=== PATIENT | female | born 1955 | race Caucasian/White ===

== ENCOUNTER 2017-02-23 15:31 | Inpatient (IN) | payer MEDICARE ==
[~2017-02-23] VITALS: Ht 175.3 cm; Wt 99.3 kg
[~2017-02-23 15:31] MED LIST: ASPI-482 PO; DIPH25CA58 PO; GABA600T2 PO; LORA10CA PO; METF500T4 PO; NORG1TAB13 PO; PHEN15CA PO; SIMV20TA3 PO
[2017-02-23] MEDS ORDERED: fentaNYL PF VIAL 100 MCG/2 ML VIAL IV PRN (16:00)
--- NOTE | 2017-02-23 16:06 | EKG ---
[facility] [address] [place] [address] Test Date: 2017-02-23 Test Time: 16:03:49 Pat Name: HANY ESTRADA Department: Room: Gender: Female [employer]: : 1955 Requested By: ABDULAZIZ DELGADO Order Number: [id number] Reading MD: Bambi Medley Measurements Intervals Doyle Rate: 78 P: 39 TX: 156 QRS: 51 QRSD: 86 T: 23 QT: 394 QTc: 453 Interpretive Statements SINUS RHYTHM NORMAL ECG RI6.01 No previous ECG available for comparison Electronically Signed On 02-26-2017 17:41:11 CDT by Bambi Medley
[2017-02-23 16:18] LABS: BASO # 0.1 x10^3/uL (0.0-0.2); BASO % 1 % (0-3); EOS % 4 % (0-3); HEMOGLOBIN 12.1 g/dL (12.0-15.5); LYMPH # 3.2 x10^3/uL (1.0-4.8); LYMPH % 32 % (24-48); MEAN CORPUSCULAR HEMOGLOBIN 29 pg (25-35); MEAN CORPUSCULAR HGB CONC 33 g/dL (31-37); MEAN CORPUSCULAR VOLUME 89 fL (79-100); MONO % 6 % (0-9); NEUT % 57 % (31-73); PLATELET COUNT 315 x10^3/uL (140-400); RED BLOOD COUNT 4.14 x10^6/uL (3.50-5.40); RED CELL DISTRIBUTION WIDTH 13.9 % (11.5-14.5)
[2017-02-23 16:28] LABS: PROTHROMBIN TIME PATIENT 12.3 SEC (11.7-14.0)
--- NOTE | 2017-02-23 16:28 | RAD ---
Indication CVA. Protocol study. A single view of the chest was obtained. No prior imaging of the chest is available. The heart and pulmonary vessels appear normal. The lungs are clear of acute infiltrates. Significant pleural fluid is not present. There is no pneumothorax. Postoperative changes are noted in the lower cervical spine. IMPRESSION: No acute or focal process seen in the chest
[2017-02-23 16:32] LABS: CALCIUM 9.4 mg/dL (8.5-10.1); CREATININE 0.8 mg/dL (0.6-1.0); GFR 72.9; POTASSIUM 4.1 mmol/L (3.5-5.1)
--- NOTE | 2017-02-23 16:37 | RAD ---
Indication difficulty with speech. Blurred vision. Noncontrast images of the head were obtained. No prior imaging of the head is available. The calvarium appears unremarkable. The visualized paranasal sinuses appear normal. There is no subdural or epidural hematoma. No mass or midline shift is seen. There is no hemorrhage. Acute finding is not apparent. IMPRESSION: No acute finding seen on noncontrast CT images of the head PQRS Compliance Statement: One or more of the following individualized dose reduction techniques were utilized for this examination: 1. Automated exposure control 2. Adjustment of the mA and/or kV according to patient size 3. Use of iterative reconstruction technique
[2017-02-23 16:38] LABS: ALBUMIN 3.3 g/dL (3.4-5.0); ALBUMIN/GLOBULIN RATIO 0.9 (1.0-1.7); TOTAL BILIRUBIN 0.2 mg/dL (0.2-1.0)
--- NOTE | 2017-02-23 17:35 | RAD ---
PROCEDURE MRI study of the cervical spine without contrast HISTORY Worsening extremity weakness for 1 week. History of cervical fusion in 2002. TECHNIQUE Noncontrast MRI sequences of the cervical spine were performed in the sagittal and axial planes. COMPARISON December 17, 2013. FINDINGS No marrow infiltrative process or discitis is seen. Anterior cervical fusion is seen at C5 and C6. There is paramagnetic susceptibility artifact from the anterior cervical spine screws. The C5-6 intervertebral disc space is fused. No discitis is seen. Laminectomy defect of C5 and C6 is seen. There is cervical cord signal abnormality at the C6 level which was seen previously. This has not changed significantly. This is consistent with chronic myelomalacia. No progressive cervical cord atrophy is seen. No new cervical cord signal abnormality is seen. No cerebellar tonsillar ectopia is seen. At C2-3, no focal disc protrusion or spinal canal stenosis or neural foraminal narrowing is seen. At C3-4, there is a mild central disc protrusion which indents the anterior aspect of the thecal sac and comes in contact with the anterior surface of the cervical cord. This has not changed significantly. There is moderate narrowing of the right neural foramen. This is unchanged. At C4-5, mild retrolisthesis is seen. There is mild degenerative endplate spurring and diffuse disc bulging present. No significant spinal canal stenosis is evident. There is moderate narrowing of the right neural foramen and mild narrowing of the left neural foramen. The neural foramen narrowing on the right side has increased. At C5-6, the disc space is fused. No spinal canal stenosis is seen. There is moderate narrowing of the neural foramina bilaterally. This has not changed. At C6-7, grade 1 anterolisthesis is seen. There is no significant disc protrusion at this level. There is mild degenerative endplate spurring. No progressive spinal canal stenosis is seen. There is moderate narrowing of the left neural foramen and mild narrowing of the right neural foramen. This is unchanged. At C7-T1, no focal disc protrusion or spinal canal stenosis or neural foraminal narrowing is seen. IMPRESSION Degenerative cervical spondylosis and disc bulging and neural foraminal narrowing as discussed above. See discussion above for each level. There has been progressive moderate narrowing of the right neural foramen at C4-5 since the previous study. No other new finding is seen from December 17, 2013. Stable cervical cord signal abnormality is seen at C6 consistent with chronic myelomalacia. No progressive atrophy is evident. No new cervical cord abnormality is evident. Electronically signed by: Margarito Horan MD (February 23, 2017 17:34:40)
--- NOTE | 2017-02-23 18:03 | PHYS DOC ---
Past Medical History Past Medical History: Diabetes-Type II, High Cholesterol, Other Additional Past Medical Histor: spinal stenosis, dermatitis, neuropathy Past Surgical History: Cervical Fusion, , Hysterectomy, Lumbar Laminectomy, Oophorectomy, Tonsillectomy Additional Past Surgical Histo: mesh bladder sling, upper dentures, C5/C6 fusion, dental sx, laproscopy Alcohol Use: Occasionally Drug Use: None Adult General Chief Complaint Chief Complaint: MULTIPLE COMPLAINTS HPI HPI Patient is a 61 year old female who presents with extremity numbness or weakness. Patient reports over the past week she has had progressive numbness and weakness in all extremities. Also reports blurred vision, confusion, difficulty with word finding over approximately same time period. Denies headache, slurred speech. States she had an x-ray performed by her primary care physician recently that showed "spinal cord compression." She had been scheduled for outpatient MRI but was referred here today because her symptoms had significantly worsened. Denies recent trauma. She denies bowel or bladder incontinence or retention, saddle anesthesia. History of previous C5-C6 laminectomy and decompression, L2-L5 radiofrequency ablation. She takes baclofen and gabapentin as well as hydrocodone. PCP is Dr. Cardona. Review of Systems Review of Systems Constitutional: Denies fever or chills Eyes: Denies change in visual acuity HENT: Denies nasal congestion or sore throat Respiratory: Denies cough or shortness of breath Cardiovascular: Denies chest pain or edema GI: Denies abdominal pain, nausea, vomiting, or diarrhea : Denies dysuria or hematuria Musculoskeletal: Reports neck pain and back pain Integument: Denies rash or skin lesions Neurologic: Denies headache, reports extremity numbness and weakness, difficulty with word finding Current Medications Current Medications Current Medications Medications (Trade) Dose Ordered Sig/[place] Start Time Stop Time Status Last Admin Dose Admin Acetaminophen (Tylenol) 650 mg PRN Q4HRS PRN 02/23/17 19:15 02/24/17 19:14 Fentanyl Citrate (Fentanyl 2ml Vial) 50 mcg PRN Q15MIN PRN 02/23/17 16:00 02/24/17 15:59 02/23/17 16:31 50 MCG Morphine Sulfate 4 mg PRN Q2HR PRN 02/23/17 19:15 02/24/17 19:14 Ondansetron HCl (Zofran) 4 mg PRN Q8HRS PRN 02/23/17 19:15 02/24/17 19:14 Allergies Allergies Allergies Coded Allergies Type Severity Reaction Last Updated Verified No Known Drug Allergies 12/17/13 No Physical Exam Physical Exam Constitutional: Obese, no acute distress, non-toxic appearance. HENT: Normocephalic, atraumatic, bilateral external ears normal, oropharynx moist, nose normal. Eyes: PERRLA, EOMI, conjunctiva normal, no discharge. Neck: supple, no stridor. Generalized C-spine tenderness with palpation Cardiovascular: RRR, no murmurs, no edema. Lungs & Thorax: LCTAB, no wheezing, no respiratory distress. Abdomen: soft, nontender, nondistended. Skin: Warm, dry, no erythema, no rash. Back: Generalized tenderness with palpation of her entire thoracic and lumbar spine without step-offs. Extremities: No tenderness, no edema. 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, symmetric but weak resisted plantarflexion and dorsiflexion 4 out of 5 bilaterally, symmetric decreased sensation to light touch to upper and lower extremities Psychologic: anxious Current Patient Data Vital Signs Vital Signs Date Time Temp Pulse Resp B/P (MAP) Pulse Ox O2 Delivery O2 Flow Rate FiO2 02/23/17 16:31 21 98 Room Air 02/23/17 15:50 97.6 84 159/72 (101) 97.6 Lab Values Laboratory Tests Test 02/23/17 16:10 02/23/17 19:25 White Blood Count 10.0 x10^3/uL (4.0-11.0) Red Blood Count 4.14 x10^6/uL (3.50-5.40) Hemoglobin 12.1 g/dL (12.0-15.5) Hematocrit 37.0 % (36.0-47.0) Mean Corpuscular Volume 89 fL (79-100) Mean Corpuscular Hemoglobin 29 pg (25-35) Mean Corpuscular Hemoglobin Concent 33 g/dL (31-37) Red Cell Distribution Width 13.9 % (11.5-14.5) Platelet Count 315 x10^3/uL (140-400) Neutrophils (%) (Auto) 57 % (31-73) Lymphocytes (%) (Auto) 32 % (24-48) Monocytes (%) (Auto) 6 % (0-9) Eosinophils (%) (Auto) 4 % (0-3) H Basophils (%) (Auto) 1 % (0-3) Neutrophils # (Auto) 5.7 x10^3uL (1.8-7.7) Lymphocytes # (Auto) 3.2 x10^3/uL (1.0-4.8) Monocytes # (Auto) 0.6 x10^3/uL (0.0-1.1) Eosinophils # (Auto) 0.4 x10^3/uL (0.0-0.7) Basophils # (Auto) 0.1 x10^3/uL (0.0-0.2) Prothrombin Time 12.3 SEC (11.7-14.0) Prothrombin Time INR 1.0 (0.8-1.1) PTT 27 SEC (24-38) Sodium Level 139 mmol/L (136-145) Potassium Level 4.1 mmol/L (3.5-5.1) Chloride Level 101 mmol/L (98-107) Carbon Dioxide Level 31 mmol/L (21-32) Anion Gap 7 (6-14) Blood Urea Nitrogen 19 mg/dL (7-20) Creatinine 0.8 mg/dL (0.6-1.0) Estimated GFR (Cockcroft-Gault) 72.9 BUN/Creatinine Ratio 24 (6-20) H Glucose Level 122 mg/dL (70-99) H Calcium Level 9.4 mg/dL (8.5-10.1) Total Bilirubin 0.2 mg/dL (0.2-1.0) Aspartate Amino Transferase (AST) 18 U/L (15-37) Alanine Aminotransferase (ALT) 21 U/L (14-59) Alkaline Phosphatase 48 U/L (46-116) Troponin I Quantitative < 0.017 ng/mL (0.000-0.055) Total Protein 7.0 g/dL (6.4-8.2) Albumin 3.3 g/dL (3.4-5.0) L Albumin/Globulin Ratio 0.9 (1.0-1.7) L Thyroid Stimulating Hormone (TSH) 3.413 uIU/mL (0.358-3.74) Urine Collection Type Unknown Urine Color Yellow Urine Clarity Cloudy Urine pH 7.0 Urine Specific [place] 1.015 Urine Protein Negative mg/dL (NEG-TRACE) Urine Glucose (UA) Negative mg/dL (NEG) Urine Ketones (Stick) Trace mg/dL (NEG) Urine Blood Negative (NEG) Urine Nitrite Negative (NEG) Urine Bilirubin Negative (NEG) Urine Urobilinogen Dipstick 1.0 mg/dL (0.2 mg/dL) Urine Leukocyte Esterase Small (NEG) Urine RBC 0 /HPF (0-2) Urine WBC 1-4 /HPF (0-4) Urine Squamous Epithelial Cells Few /LPF Urine Amorphous Sediment Present /HPF Urine Bacteria Few /HPF (0-FEW) Laboratory Tests 02/23/17 16:10 Laboratory Tests 02/23/17 16:10 EKG EKG interpreted by me: NSR rate 78, no acute ST/T wave changes, normal intervals, no ectopy.[] Radiology/Procedures Radiology/Procedures PROCEDURE: CT HEAD WO CONTRAST Indication difficulty with speech. Blurred vision. Noncontrast images of the head were obtained. No prior imaging of the head is available. The calvarium appears unremarkable. The visualized paranasal sinuses appear normal. There is no subdural or epidural hematoma. No mass or midline shift is seen. There is no hemorrhage. Acute finding is not apparent. IMPRESSION: No acute finding seen on noncontrast CT images of the head PQRS Compliance Statement: One or more of the following individualized dose reduction techniques were utilized for this examination: 1. Automated exposure control 2. Adjustment of the mA and/or kV according to patient size 3. Use of iterative reconstruction technique DICTATED and SIGNED BY: APRIL HANCOCK MD DATE: 02/23/17 1632 PROCEDURE: CHEST AP ONLY Indication CVA. Protocol study. A single view of the chest was obtained. No prior imaging of the chest is available. The heart and pulmonary vessels appear normal. The lungs are clear of acute infiltrates. Significant pleural fluid is not present. There is no pneumothorax. Postoperative changes are noted in the lower cervical spine. IMPRESSION: No acute or focal process seen in the chest DICTATED and SIGNED BY: APRIL HANCOCK MD DATE: 02/23/17 1624 PROCEDURE: CERVICAL SPINE WO CONTRAST PROCEDURE MRI study of the cervical spine without contrast HISTORY Worsening extremity weakness for 1 week. History of cervical fusion in 2002. TECHNIQUE Noncontrast MRI sequences of the cervical spine were performed in the sagittal and axial planes. COMPARISON December 17, 2013. FINDINGS No marrow infiltrative process or discitis is seen. Anterior cervical fusion is seen at C5 and C6. There is paramagnetic susceptibility artifact from the anterior cervical spine screws. The C5-6 intervertebral disc space is fused. No discitis is seen. Laminectomy defect of C5 and C6 is seen. There is cervical cord signal abnormality at the C6 level which was seen previously. This has not changed significantly. This is consistent with chronic myelomalacia. No progressive cervical cord atrophy is seen. No new cervical cord signal abnormality is seen. No cerebellar tonsillar ectopia is seen. At C2-3, no focal disc protrusion or spinal canal stenosis or neural foraminal narrowing is seen. At C3-4, there is a mild central disc protrusion which indents the anterior aspect of the thecal sac and comes in contact with the anterior surface of the cervical cord. This has not changed significantly. There is moderate narrowing of the right neural foramen. This is unchanged. At C4-5, mild retrolisthesis is seen. There is mild degenerative endplate spurring and diffuse disc bulging present. No significant spinal canal stenosis is evident. There is moderate narrowing of the right neural foramen and mild narrowing of the left neural foramen. The neural foramen narrowing on the right side has increased. At C5-6, the disc space is fused. No spinal canal stenosis is seen. There is moderate narrowing of the neural foramina bilaterally. This has not changed. At C6-7, grade 1 anterolisthesis is seen. There is no significant disc protrusion at this level. There is mild degenerative endplate spurring. No progressive spinal canal stenosis is seen. There is moderate narrowing of the left neural foramen and mild narrowing of the right neural foramen. This is unchanged. At C7-T1, no focal disc protrusion or spinal canal stenosis or neural foraminal narrowing is seen. IMPRESSION Degenerative cervical spondylosis and disc bulging and neural foraminal narrowing as discussed above. See discussion above for each level. There has been progressive moderate narrowing of the right neural foramen at C4-5 since the previous study. No other new finding is seen from December 17, 2013. Stable cervical cord signal abnormality is seen at C6 consistent with chronic myelomalacia. No progressive atrophy is evident. No new cervical cord abnormality is evident. Electronically signed by: Elpidio Horan MD (February 23, 2017 17:34:40) DICTATED and SIGNED BY: ELPIDIO HORAN MD DATE: 02/23/17 1734[] Course & Med Decision Making Course & Med Decision Making Pertinent Labs and Imaging studies reviewed. (See chart for details) The patient presents with neurologic symptoms. Discussed with Dr. Walker who recommends obtaining stat MRI in the emergency department. This showed abnormalities as above, no acute cord compression. I did discuss results with Destiny DAMON and she was going to review with Dr. Lucas, have not yet received a response at time of admission but she anticipated patient would not require any emergent intervention. CT head no acute abnormalities. She had ongoing pain. recommend admission for further evaluation & treatment. The patient agrees with plan of care. Discussed with Jaylan who agrees to admit to inpatient status, consult to Dr. Lucas & Dr. Oro of neurology. The patient is admitted in stable condition. [] Dragon Disclaimer Dragon Disclaimer This electronic medical record was generated, in whole or in part, using a voice recognition dictation system. Departure Departure Impression: Primary Impression: Generalized weakness Additional Impressions: Neural foraminal stenosis of cervical spine Paresthesias Disposition: ADMITTED INPATIENT Admitting Physician: Negro Tian Condition: STABLE Referrals: JOSE EDUARDO ESTES MD (PCP) Problem Qualifiers ABDULAZIZ DELGADO MD February 23, 2017 18:03
[2017-02-23] MEDS ORDERED: ACETAMINOPHEN 325 MG TABLET. PO PRN (19:15)
[2017-02-23] MEDS ORDERED: ONDANSETRON PF 4 MG/2 ML VIAL. IV PRN (19:15)
[2017-02-23 19:33] LABS: BILIRUBIN,URINE NEGATIVE (NEG); GLUCOSE,URINE NEGATIVE (NEG); NITRITE,URINE NEGATIVE (NEG); PROTEIN,URINE NEGATIVE (NEG-TRACE)
[2017-02-23 19:41] LABS: BACTERIA,URINE FEW /HPF (0-FEW); RBC,URINE 0 /HPF (0-2); SQUAMOUS EPITHELIAL CELL,UR FEW /LPF
--- NOTE | 2017-02-23 21:05 | ACF ---
Admission Forms Criteria NEUROLOGY [facility]G Clinical Indications for Admission to Inpatient Care (Place ' X' for any and all applicable criteria): Hospital admission is needed for appropriate care of the patient because of 1 or more of the following: [ ]I. Encephalitis [ ]II. Severe [employer] infections indicated by 1 or more of the following(1)(2)(3) : [ ]a) Intracranial abscess [ ]b) Spinal abscess or myelitis [ ]c) Tuberculous or other nonbacterial, nonviral [employer] infection(8) [ ]III. Vasculitis and 1 or more of the following(14)(15): []a) Altered mental status that is severe or persistent or other acute neurologic change []b) Psychosis []c) Seizure [ ]IV. Status epilepticus or repetitive seizures not controlled with emergent treatment [A] (7)(8) [ ]V. Altered mental status that is severe or persistent [ ]. Transient alteration in consciousness with high-risk etiology; examples include (12)(13): [ ]a) Cardiovascular source [ ]b) Cataplexy [ ]VII. Cerebral aneurysm requiring ANY ONE of the following(14): [ ]a) IV antihypertensives or vasoactive agents [ ]b) Sedation and analgesia for suspected leak [ ]c) Need for external ventricular drainage and cerebral perfusion pressure monitoring [ ]d) Emergent evaluation to determine need for surgical clipping or endovascular coiling by interventional radiology. If surgery is required ( Also use Craniotomy, Supratentorial, for Surgery of Bleeding Intracranial Aneurysm (for bleeding aneurysm) or Craniotomy, Supratentorial (for nonbleeding aneurysm) as appropriate. [X]VIII. New-onset severe neurologic symptom requiring inpatient care indicated by ANY ONE of the following: [ ]a) Aphasia(15) [ ]b) Weakness (grade 3 or less) [ ]c) Paralysis (eg, hemiplegia) [ ]d) Spasticity(16) [ ]e) Dystonia [ ]e) Ataxia(17) [ ]f) Amnesia(18) [ ]g) Involuntary movements(19) [ ]h) Vertigo [ ] Visual loss [X]i) Other severe neurologic finding (eg, papilledema, mass effect on imaging, myoclonus not treatable at alternative level of care (eg, observation care) [ ]IX. Guillain-Clio syndrome(20) [ ]X. Myasthenia gravis crisis or inpatient monitoring need as indicated by 1 or more of the following(21): [ ]a) Intensive treatment (eg, course of plasmapheresis) with inadequate outpatient situation to monitor patients status [ ]b) Inadequate airway protection [ ]c) Respiratory insufficiency requiring intubation or inpatient. monitoring [ ]d) Progressive dysphagia with failure to thrive [ ]XI. Multiple sclerosis or other acute demyelinating disease requiring inpatient care as indicated by 1 or more of the following (22)(23): [ ]a) Acute severe deterioration requiring inpatient treatment (eg, IV steroids, plasmapheresis, close observation) [ ]b) Acute complication requiring inpatient care (eg, sepsis, severe decubitus, aspiration) [ ]XII.Parkinson disease requiring inpatient care (Also use Optimal Recovery Care Criteria or General Recovery Criteria as appropriate) indicated by 1 or more of the following(25): [ ]a) Infection (eg, aspiration pneumonia) not treatable at alternative level of care [ ]b Dehydration that is severe or persistent [ ]c) Life-threatening agitation or psychotic behavior not treatable on emergency, observation care, or alternative level (eg, residential) basis [ ]d) Severe medication withdrawal effects (eg, freezing, neuroleptic malignant syndrome) not responsive to emergency and observation care treatment ( as appropriate) [ ]e) Other severe manifestation not treatable at alternative level of care [ ]XII. Amyotrophic lateral sclerosis with inpatient care needs as indicated by ANY ONE of the following(26): [ ]a) Acute complications (eg, aspiration pneumonia, sepsis ) requiring inpatient care ( see other optimal Recovery Guideline as appropriate) [ ]b) Dehydration that is severe persistent AND artificial support desired [ ]c) Inadequate airway protection AND artificial support desired [ ]d) Severe ventilatory insufficiency AND artificial support desired [ ]XIII. Myasthenia gravis crisis or inpatient monitoring need as indicated by 1 or more of the following(21): [] a) Inadequate airway protection []b) Respiratory insufficiency requiring intubation or inpatient monitoring []c) Progressive dysphagia with failure to thrive []d) Intensive treatment (e.g., course of plasmapheresis) with inadequate outpatient situation to monitor patients status [ ]XIV. Multiple sclerosis or other acute demyelinating disease requiring inpatient care indicated by 1 or more of the following[C](36)(43)(44)(45)(46): []a) Acute severe deterioration requiring inpatient treatment (eg, IV steroids, plasmapheresis, close observation) []b) Acute complication requiring inpatient care (eg, sepsis, severe decubitus, aspiration) [ ]XV. Intracranial hypertension (e.g., pseudotumor cerebri) requiring inpatient care (e.g., acute visual loss, inadequate oral intake) (47)(48)(49) [ ]XVI. Parkinson disease requiring inpatient care (Also use Optimal Recovery Care Criteria or General Recovery Criteria as appropriate) indicated by 1 or more of the following(25): [] a) Infection (e.g., aspiration pneumonia) not treatable at alternative level of care []b) Volume depletion not responsive to emergency and observation care treatment (as appropriate) []c) Life-threatening agitation or psychotic behavior not treatable on emergency, observation care, or alternative level (e.g., residential) basis []d) Severe medication withdrawal effects (e.g., freezing, neuroleptic malignant syndrome) not responsive to emergency and observation care treatment (as appropriate) []e) Other severe manifestation not treatable at alternative level of care [ ]XVII. Amyotrophic lateral sclerosis with inpatient care needs as indicated by1 or more of the following(42): []a) Acute complications (eg, aspiration pneumonia, sepsis) requiring inpatient care (see other Optimal Recovery Guideline or General Recovery Guideline as appropriate) []b) Dehydration that is severe or persistent AND artificial support desired []c) Inadequate airway protection AND artificial support desired []d) Severe ventilatory insufficiency AND artificial support desired [ ]XVIII. Severe myopathy, neuropathy, or other neuromuscular disease indicated by 1 or more of the following(42)(52)(53)(54): []a ) New-onset severe diffuse weakness (eg, strength 3/5 or less) []b) Severe dysphagia []c) Dyspnea at rest or with minimal exertion (new) []d) Inadequate airway protection []e) Inadequate ventilation indicated by 1 or more of the following : i) Partial pressure of carbon dioxide greater than 44 mm Hg ( 5.9 kPa) (new) ii) Reduced peak expiratory flow rate (new) iii) Vital capacity less than 50% of predicted (less than 15 mL/kg) iv) Peak inspiratory force less negative than -30 cm H2O (- 2942 Pa) [ ]XVII.Complications of congenital or degenerative disease (eg, infection, seizures, dehydration, injury) not responsive to emergency and observation care treatment (as appropriate ) [C](16)(29)(30) [ ]XVIII.Suspected or confirmed nerve or muscle toxic injury, including ANY ONE of the following: [ ]a) Rhabdomyolysis(31) i) Acute renal failure ii) Dehydration that is severe or persistent iii) Altered mental status that is severe or persistent iv) Electrolyte abnormality that remains after emergency or observation level care ( as appropriate) [ ]b) Botulism(32) [ ]c) Other severe toxin-induced sign or symptom [ ]XIX. Neurologic trauma requiring inpatient treatment (medical) indicated by ANY ONE of the following(33)(34): [ ]a) Vital signs or neurologic signs more frequently than every 4 hours [ ]b) Hyperosmolar therapy [ ]c) Respiratory monitoring [ ]d) Intracranial pressure monitoring and treatment [ ]e) Stabilization and immobilization device placement (eg, braces, body jacket) [ ]f) Intubation & mechanical ventilation for airway protection or therapeutic hyperventilation [ ]g) Other treatment or monitoring needed that requires inpatient level of care [ ]XX.Complications of neurologic devices (eg, ventricular shunt, neurostimulator) requiring 1 or more of the following(35)(36): [ ]a) IV antibiotics with monitoring while awaiting culture results [ ]b) Monitoring for hydrocephalus [ ]XXI. Neurology condition symptom, or finding for which emergency and observation care have failed or are not considered appropriate. See General Criteria: Observation Care ISC, General Admission Criteria GRG, or Pediatric General Admission Criteria GRG guideline as appropriate. The original [facility] [employer] content created by [facility] has been revised. The portions of the content which have been revised are identified through the use of italic text or in bold, and [facility] has neither reviewed nor approved the modified material. All other unmodified content is copyright [facility] Please see references footnoted in the original [facility] edition 2016 Admission Criteria Met?: Yes ZAC BARTLETT February 23, 2017 21:05
[2017-02-23 21:15] VITALS: BP 140/72
[2017-02-23] MEDS: MORPHINE SULFATE 4 MG/ML DISP.SYRIN. IV PRN (21:42)
[2017-02-23 23:16] VITALS: BP 125/72
[2017-02-24] MEDS ORDERED: METF-620 PO (03:00)
[2017-02-24] MEDS ORDERED: SIMV40TA3 PO (03:00)
[2017-02-24] MEDS ORDERED: GABA800T2 PO (03:00)
[2017-02-24] MEDS ORDERED: DIPH25CA58 PO (03:00)
[2017-02-24] MEDS: MORPHINE SULFATE 4 MG/ML DISP.SYRIN. IV PRN ×3 (03:04→10:51)
[2017-02-24 03:37] VITALS: BP 141/79
[2017-02-24 04:11] LABS: BASO # 0.1 x10^3/uL (0.0-0.2); BASO % 1 % (0-3); EOS % 3 % (0-3); HEMATOCRIT 36.2 % (36.0-47.0); LYMPH # 3.9 x10^3/uL (1.0-4.8); LYMPH % 40 % (24-48); MEAN CORPUSCULAR HEMOGLOBIN 29 pg (25-35); MEAN CORPUSCULAR HGB CONC 33 g/dL (31-37); MEAN CORPUSCULAR VOLUME 88 fL (79-100); MONO % 6 % (0-9); NEUT % 50 % (31-73); PLATELET COUNT 308 x10^3/uL (140-400); RED BLOOD COUNT 4.09 x10^6/uL (3.50-5.40); WHITE BLOOD COUNT 9.8 x10^3/uL (4.0-11.0)
[2017-02-24 04:16] LABS: CALCIUM 8.6 mg/dL (8.5-10.1); CREATININE 0.7 mg/dL (0.6-1.0); GFR 85.1; POTASSIUM 3.9 mmol/L (3.5-5.1)
[2017-02-24] MEDS ORDERED: ESCI20TA PO (05:52)
[2017-02-24] MEDS ORDERED: OXYB5TAB7 PO (05:52)
[2017-02-24] MEDS ORDERED: ESTR30CR VG (05:52)
[2017-02-24] MEDS ORDERED: DOCU-27 PO (05:52)
[2017-02-24] MEDS ORDERED: KETO120S TP (05:52)
[2017-02-24] MEDS ORDERED: HYDR-2762 PO (05:52)
[2017-02-24] MEDS ORDERED: CALC625T PO (05:52)
[2017-02-24] MEDS ORDERED: BACL10TA PO (05:52)
[2017-02-24] MEDS ORDERED: OMEG500C PO (05:52)
[2017-02-24] MEDS ORDERED: KETO15CR TP (05:52)
[2017-02-24] MEDS ORDERED: ERGO500012 PO (05:52)
[2017-02-24 07:00] VITALS: BP 97/66
[2017-02-24] MEDS ORDERED: ERGOCALCIFEROL (VITAMIN D2) 50,000 UNIT CAPSULE. PO SCH (09:00)
[2017-02-24] MEDS ORDERED: methylPREDNISolone 4 MG TABLET. PO SCH (09:00)
[2017-02-24] MEDS ORDERED: DEXTROSE 50% 25 GM / 50ML DISP.SYRIN. IV PRN (09:15)
[2017-02-24] MEDS ORDERED: ONDANSETRON PF 4 MG/2 ML VIAL. IV PRN (09:15)
[2017-02-24] MEDS ORDERED: ACETAMINOPHEN 325 MG TABLET. PO PRN (09:15)
[2017-02-24] MEDS: KETOCONAZOLE 2% TOPICAL CREAM 15GM TUBE. TP SCH (09:15)
--- NOTE | 2017-02-24 09:23 | PDOC ---
OBJECTIVE Vital Signs Vital Signs Date Time Temp Pulse Resp B/P (MAP) Pulse Ox O2 Delivery O2 Flow Rate FiO2 02/24/17 08:47 Room Air 02/24/17 08:17 Room Air 02/24/17 08:00 Room Air 02/24/17 07:00 97.9 77 16 97/66 (76) 94 Room Air 97.9 02/24/17 03:37 98.1 65 18 141/79 (99) 95 Room Air 98.1 02/24/17 03:34 16 02/24/17 03:04 16 Room Air 02/23/17 23:16 98.2 79 18 125/72 (89) 94 Room Air 98.2 02/23/17 22:00 Room Air 02/23/17 21:42 16 Room Air 02/23/17 21:15 98.9 83 18 140/72 (94) 94 Room Air 98.9 02/23/17 20:00 89 19 123/74 (90) 95 Room Air 02/23/17 19:30 82 20 122/82 (95) 94 02/23/17 19:00 80 19 124/68 (86) 94 02/23/17 18:30 82 18 123/58 (79) 93 02/23/17 18:00 80 20 122/60 (80) 93 02/23/17 17:30 78 19 119/58 (78) 94 02/23/17 17:00 79 19 126/60 (82) 95 02/23/17 16:31 21 98 Room Air 02/23/17 16:00 83 20 136/63 (87) 95 Room Air 02/23/17 15:50 97.6 84 21 159/72 (101) 97 Room Air 97.6 I & O Intake and Output 02/24/17 07:00 Intake Total 300 ml Balance 300 ml Intake Oral 300 ml # Voids 2 COMMENT Lab Laboratory Tests Test 02/23/17 16:10 02/23/17 19:25 02/23/17 21:55 02/24/17 03:36 White Blood Count 10.0 x10^3/uL (4.0-11.0) 9.8 x10^3/uL (4.0-11.0) Red Blood Count 4.14 x10^6/uL (3.50-5.40) 4.09 x10^6/uL (3.50-5.40) Hemoglobin 12.1 g/dL (12.0-15.5) 12.0 g/dL (12.0-15.5) Hematocrit 37.0 % (36.0-47.0) 36.2 % (36.0-47.0) Mean Corpuscular Volume 89 fL (79-100) 88 fL (79-100) Mean Corpuscular Hemoglobin 29 pg (25-35) 29 pg (25-35) Mean Corpuscular Hemoglobin Concent 33 g/dL (31-37) 33 g/dL (31-37) Red Cell Distribution Width 13.9 % (11.5-14.5) 14.0 % (11.5-14.5) Platelet Count 315 x10^3/uL (140-400) 308 x10^3/uL (140-400) Neutrophils (%) (Auto) 57 % (31-73) 50 % (31-73) Lymphocytes (%) (Auto) 32 % (24-48) 40 % (24-48) Monocytes (%) (Auto) 6 % (0-9) 6 % (0-9) Eosinophils (%) (Auto) 4 % (0-3) 3 % (0-3) Basophils (%) (Auto) 1 % (0-3) 1 % (0-3) Neutrophils # (Auto) 5.7 x10^3uL (1.8-7.7) 4.9 x10^3uL (1.8-7.7) Lymphocytes # (Auto) 3.2 x10^3/uL (1.0-4.8) 3.9 x10^3/uL (1.0-4.8) Monocytes # (Auto) 0.6 x10^3/uL (0.0-1.1) 0.6 x10^3/uL (0.0-1.1) Eosinophils # (Auto) 0.4 x10^3/uL (0.0-0.7) 0.3 x10^3/uL (0.0-0.7) Basophils # (Auto) 0.1 x10^3/uL (0.0-0.2) 0.1 x10^3/uL (0.0-0.2) Prothrombin Time 12.3 SEC (11.7-14.0) Prothromb Time International Ratio 1.0 (0.8-1.1) Activated Partial Thromboplast Time 27 SEC (24-38) Sodium Level 139 mmol/L (136-145) 139 mmol/L (136-145) Potassium Level 4.1 mmol/L (3.5-5.1) 3.9 mmol/L (3.5-5.1) Chloride Level 101 mmol/L (98-107) 101 mmol/L (98-107) Carbon Dioxide Level 31 mmol/L (21-32) 30 mmol/L (21-32) Anion Gap 7 (6-14) 8 (6-14) Blood Urea Nitrogen 19 mg/dL (7-20) 16 mg/dL (7-20) Creatinine 0.8 mg/dL (0.6-1.0) 0.7 mg/dL (0.6-1.0) Estimated GFR (Cockcroft-Gault) 72.9 85.1 BUN/Creatinine Ratio 24 (6-20) Glucose Level 122 mg/dL (70-99) 126 mg/dL (70-99) Calcium Level 9.4 mg/dL (8.5-10.1) 8.6 mg/dL (8.5-10.1) Total Bilirubin 0.2 mg/dL (0.2-1.0) Aspartate Amino Transf (AST/SGOT) 18 U/L (15-37) Alanine Aminotransferase (ALT/SGPT) 21 U/L (14-59) Alkaline Phosphatase 48 U/L (46-116) Troponin I Quantitative < 0.017 ng/mL (0.000-0.055) Total Protein 7.0 g/dL (6.4-8.2) Albumin 3.3 g/dL (3.4-5.0) Albumin/Globulin Ratio 0.9 (1.0-1.7) Thyroid Stimulating Hormone (TSH) 3.413 uIU/mL (0.358-3.74) Urine Collection Type Unknown Urine Color Yellow Urine Clarity Cloudy Urine pH 7.0 Urine Specific [place] 1.015 Urine Protein Negative mg/dL (NEG-TRACE) Urine Glucose (UA) Negative mg/dL (NEG) Urine Ketones (Stick) Trace mg/dL (NEG) Urine Blood Negative (NEG) Urine Nitrite Negative (NEG) Urine Bilirubin Negative (NEG) Urine Urobilinogen Dipstick 1.0 mg/dL (0.2 mg/dL) Urine Leukocyte Esterase Small (NEG) Urine RBC 0 /HPF (0-2) Urine WBC 1-4 /HPF (0-4) Urine Squamous Epithelial Cells Few /LPF Urine Amorphous Sediment Present /HPF Urine Bacteria Few /HPF (0-FEW) Glucose (Fingerstick) 107 mg/dL (70-99) Test 02/24/17 07:26 Glucose (Fingerstick) 119 mg/dL (70-99) MAURO MCCULLOUGH MD February 24, 2017 09:23
[2017-02-24] MEDS: CALCIUM POLYCARBOPHIL 625 MG TABLET PO SCH (09:39)
[2017-02-24] MEDS: GABAPENTIN 400 MG CAPSULE. PO SCH ×2 (09:39→21:25)
[2017-02-24] MEDS: ASPIRIN ENTERIC COATED 81 MG TABLET.DR. PO SCH (09:39)
[2017-02-24] MEDS: OMEGA-3 FATTY ACIDS/FISH OIL 1,000 MG CAPSULE. PO SCH ×2 (09:39→21:26)
[2017-02-24] MEDS: BACLOFEN 10 MG TABLET. PO SCH ×3 (09:40→21:25)
[2017-02-24] MEDS: HYDROcodone/APAP 7.5/325MG 1 TAB TABLET PO PRN (10:51)
[2017-02-24 11:10] VITALS: BP 118/76
[2017-02-24] MEDS: INSULIN ASPART 300 UNITS/3 ML INSULN.PEN SQ SCH ×2 (11:44→17:00)
--- NOTE | 2017-02-24 11:57 | PDOC1 ---
History and Physical Date of Admission Date of Admission 02/23/17 Identification/Chief Complaint Chief Complaint bl ext weakness Problems: Source Source: Chart review, Patient History of Present Illness History of Present Illness HPI Patient is a 61 year old female who presents with BL extremity numbness or weakness. pt got cervical sx in 2002, since then she has been ok, till a few month ago, she started to feel bl hands, bl legs some weakness, with numbness, neck pain ( left worse), hard to hold objects well with finger weakness. worse for a few weeks. She denies headache, slurry speech, has chronic constipation and stress incontinence, chronic mild lower back pain. States she had an x-ray performed by her primary care physician recently that showed "spinal cord compression." She had been scheduled for outpatient MRI but was referred here because her symptoms had significantly worsened. Denies recent trauma. She denies bowel or bladder incontinence or retention, saddle anesthesia. She takes baclofen and gabapentin as well as hydrocodone. PCP is Dr. Cardona. Head ct Neg. cervical MRI showed spinal stenosis, wo cord compression. Past Medical History Past Medical History Diabetes-Type II, High Cholesterol, Other Additional Past Medical Histor: spinal stenosis, dermatitis, neuropathy Past Surgical History Past Surgical History Cervical Fusion, , Hysterectomy, Lumbar Laminectomy, Oophorectomy, Tonsillectomy Additional Past Surgical Histo: mesh bladder sling, upper dentures, C5/C6 fusion, dental sx, laproscopy Family History Family History: No Significant Social History Smoke: No ALCOHOL: none Drugs: None Current Problem List Problem List Problems Medical Problems: (1) Generalized weakness Status: Acute (2) Neural foraminal stenosis of cervical spine Status: Acute (3) Paresthesias Status: Acute (4) Weakness Status: Acute Current Medications Current Medications Current Medications Medications (Trade) Dose Ordered Sig/[place] Start Time Stop Time Status Last Admin Dose Admin Acetaminophen (Tylenol) 650 mg PRN Q6HRS PRN 02/24/17 09:15 Acetaminophen/ Hydrocodone Bitart (Lortab 7.5/325) 1 tab PRN Q6HRS PRN 02/24/17 09:15 02/24/17 10:51 1 TAB Aspirin (Ecotrin) 81 mg DAILY 02/24/17 09:00 02/24/17 09:39 81 MG Baclofen (Lioresal) 10 mg TID 02/24/17 09:00 02/24/17 09:40 10 MG Calcium Polycarbophil (Fibercon) 625 mg DAILY 02/24/17 09:00 02/24/17 09:39 625 MG Dextrose (Dextrose 50%-Water Syringe) 12.5 gm PRN Q15MIN PRN 02/24/17 09:15 Diphenhydramine HCl (Benadryl) 50 mg HS 02/24/17 21:00 Docusate Sodium (Colace) 100 mg HS 02/24/17 21:00 Ergocalciferol (Vitamin D2) 50,000 unit Fr 02/24/17 09:00 02/24/17 09:39 50,000 UNIT Escitalopram Oxalate (Lexapro) 20 mg QHS 02/25/17 09:00 Estrogens Conjugated (Premarin) 0.3 young MoWeFr 02/24/17 21:00 Fentanyl Citrate (Fentanyl 2ml Vial) 50 mcg PRN Q15MIN PRN 02/23/17 16:00 02/24/17 15:59 02/23/17 16:31 50 MCG Fish Oil (Fish Oil) 1,000 mg BID 02/24/17 09:30 02/24/17 09:39 1,000 MG Gabapentin (Neurontin) 1,200 mg BID 02/24/17 09:15 02/24/17 09:39 1,200 MG Insulin Aspart (Novolog) 0-9 UNITS TIDWMEALS 02/24/17 12:00 Ketoconazole (Nizoral 2% Topical) 15 young BID 02/24/17 09:15 Metformin HCl (Glucophage) 1,000 mg BIDWMEALS 02/24/17 09:00 02/24/17 09:39 1,000 MG Morphine Sulfate 4 mg PRN Q2HR PRN 02/23/17 19:15 02/24/17 19:14 02/24/17 10:51 4 MG Ondansetron HCl (Zofran) 4 mg PRN Q6HRS PRN 02/24/17 09:15 Oxybutynin Chloride (Ditropan) 5 mg HS 02/24/17 21:00 Simvastatin (Zocor) 40 mg HS 02/24/17 21:00 Allergies Allergies Allergies Coded Allergies Type Severity Reaction Last Updated Verified No Known Drug Allergies 2/25/14 No ROS Review of System CONSTITUTIONAL: No fever or chills EYES: No recent changes SKIN: No rash or itching CARDIOVASCULAR: No chest pain, syncope, palpitations, or edema RESPIRATORY: No SOB or cough GASTROINTESTINAL: No nausea, vomiting or abdominal pain NEUROLOGICAL: No headaches or weakness ENDOCRINE: No cold or heat intolerance GENITOURINARY: No urgency or frequency of urination MUSCULOSKELETAL: No back pain or joint pain LYMPHATICS: No enlarged lymph nodes PSYCHIATRIC: No anxiety or depression Physical Exam Physical Exam GEN.: No apparent distress. Alert and oriented. HEENT: Head is normocephalic, atraumatic NECK: Supple. LUNGS: Clear to auscultation. HEART: RRR, S1, S2 present. Peripheral pulses intact ABDOMEN: Soft, nontender. Positive bowel sounds. EXTREMITIES: Without any cyanosis. bl ext weakness, strength bl hands 3/ 5. NEUROLOGIC: Normal speech, normal tone PSYCHIATRIC: Normal affect, normal mood. SKIN: No ulcerations Vitals Vitals Vital Signs Date Time Temp Pulse Resp B/P (MAP) Pulse Ox O2 Delivery O2 Flow Rate FiO2 02/24/17 11:21 Room Air 02/24/17 11:10 97.9 78 16 118/76 (90) 94 97.9 Labs Labs Laboratory Tests Test 02/23/17 16:10 02/23/17 19:25 02/23/17 21:55 02/24/17 03:36 White Blood Count 10.0 x10^3/uL (4.0-11.0) 9.8 x10^3/uL (4.0-11.0) Red Blood Count 4.14 x10^6/uL (3.50-5.40) 4.09 x10^6/uL (3.50-5.40) Hemoglobin 12.1 g/dL (12.0-15.5) 12.0 g/dL (12.0-15.5) Hematocrit 37.0 % (36.0-47.0) 36.2 % (36.0-47.0) Mean Corpuscular Volume 89 fL (79-100) 88 fL (79-100) Mean Corpuscular Hemoglobin 29 pg (25-35) 29 pg (25-35) Mean Corpuscular Hemoglobin Concent 33 g/dL (31-37) 33 g/dL (31-37) Red Cell Distribution Width 13.9 % (11.5-14.5) 14.0 % (11.5-14.5) Platelet Count 315 x10^3/uL (140-400) 308 x10^3/uL (140-400) Neutrophils (%) (Auto) 57 % (31-73) 50 % (31-73) Lymphocytes (%) (Auto) 32 % (24-48) 40 % (24-48) Monocytes (%) (Auto) 6 % (0-9) 6 % (0-9) Eosinophils (%) (Auto) 4 % (0-3) 3 % (0-3) Basophils (%) (Auto) 1 % (0-3) 1 % (0-3) Neutrophils # (Auto) 5.7 x10^3uL (1.8-7.7) 4.9 x10^3uL (1.8-7.7) Lymphocytes # (Auto) 3.2 x10^3/uL (1.0-4.8) 3.9 x10^3/uL (1.0-4.8) Monocytes # (Auto) 0.6 x10^3/uL (0.0-1.1) 0.6 x10^3/uL (0.0-1.1) Eosinophils # (Auto) 0.4 x10^3/uL (0.0-0.7) 0.3 x10^3/uL (0.0-0.7) Basophils # (Auto) 0.1 x10^3/uL (0.0-0.2) 0.1 x10^3/uL (0.0-0.2) Prothrombin Time 12.3 SEC (11.7-14.0) Prothromb Time International Ratio 1.0 (0.8-1.1) Activated Partial Thromboplast Time 27 SEC (24-38) Sodium Level 139 mmol/L (136-145) 139 mmol/L (136-145) Potassium Level 4.1 mmol/L (3.5-5.1) 3.9 mmol/L (3.5-5.1) Chloride Level 101 mmol/L (98-107) 101 mmol/L (98-107) Carbon Dioxide Level 31 mmol/L (21-32) 30 mmol/L (21-32) Anion Gap 7 (6-14) 8 (6-14) Blood Urea Nitrogen 19 mg/dL (7-20) 16 mg/dL (7-20) Creatinine 0.8 mg/dL (0.6-1.0) 0.7 mg/dL (0.6-1.0) Estimated GFR (Cockcroft-Gault) 72.9 85.1 BUN/Creatinine Ratio 24 (6-20) Glucose Level 122 mg/dL (70-99) 126 mg/dL (70-99) Calcium Level 9.4 mg/dL (8.5-10.1) 8.6 mg/dL (8.5-10.1) Total Bilirubin 0.2 mg/dL (0.2-1.0) Aspartate Amino Transf (AST/SGOT) 18 U/L (15-37) Alanine Aminotransferase (ALT/SGPT) 21 U/L (14-59) Alkaline Phosphatase 48 U/L (46-116) Troponin I Quantitative < 0.017 ng/mL (0.000-0.055) Total Protein 7.0 g/dL (6.4-8.2) Albumin 3.3 g/dL (3.4-5.0) Albumin/Globulin Ratio 0.9 (1.0-1.7) Thyroid Stimulating Hormone (TSH) 3.413 uIU/mL (0.358-3.74) Urine Collection Type Unknown Urine Color Yellow Urine Clarity Cloudy Urine pH 7.0 Urine Specific [place] 1.015 Urine Protein Negative mg/dL (NEG-TRACE) Urine Glucose (UA) Negative mg/dL (NEG) Urine Ketones (Stick) Trace mg/dL (NEG) Urine Blood Negative (NEG) Urine Nitrite Negative (NEG) Urine Bilirubin Negative (NEG) Urine Urobilinogen Dipstick 1.0 mg/dL (0.2 mg/dL) Urine Leukocyte Esterase Small (NEG) Urine RBC 0 /HPF (0-2) Urine WBC 1-4 /HPF (0-4) Urine Squamous Epithelial Cells Few /LPF Urine Amorphous Sediment Present /HPF Urine Bacteria Few /HPF (0-FEW) Glucose (Fingerstick) 107 mg/dL (70-99) Test 02/24/17 07:26 02/24/17 11:25 Glucose (Fingerstick) 119 mg/dL (70-99) 136 mg/dL (70-99) Laboratory Tests Test 02/23/17 16:10 02/23/17 19:25 02/23/17 21:55 02/24/17 03:36 White Blood Count 10.0 x10^3/uL (4.0-11.0) 9.8 x10^3/uL (4.0-11.0) Red Blood Count 4.14 x10^6/uL (3.50-5.40) 4.09 x10^6/uL (3.50-5.40) Hemoglobin 12.1 g/dL (12.0-15.5) 12.0 g/dL (12.0-15.5) Hematocrit 37.0 % (36.0-47.0) 36.2 % (36.0-47.0) Mean Corpuscular Volume 89 fL (79-100) 88 fL (79-100) Mean Corpuscular Hemoglobin 29 pg (25-35) 29 pg (25-35) Mean Corpuscular Hemoglobin Concent 33 g/dL (31-37) 33 g/dL (31-37) Red Cell Distribution Width 13.9 % (11.5-14.5) 14.0 % (11.5-14.5) Platelet Count 315 x10^3/uL (140-400) 308 x10^3/uL (140-400) Neutrophils (%) (Auto) 57 % (31-73) 50 % (31-73) Lymphocytes (%) (Auto) 32 % (24-48) 40 % (24-48) Monocytes (%) (Auto) 6 % (0-9) 6 % (0-9) Eosinophils (%) (Auto) 4 % (0-3) 3 % (0-3) Basophils (%) (Auto) 1 % (0-3) 1 % (0-3) Neutrophils # (Auto) 5.7 x10^3uL (1.8-7.7) 4.9 x10^3uL (1.8-7.7) Lymphocytes # (Auto) 3.2 x10^3/uL (1.0-4.8) 3.9 x10^3/uL (1.0-4.8) Monocytes # (Auto) 0.6 x10^3/uL (0.0-1.1) 0.6 x10^3/uL (0.0-1.1) Eosinophils # (Auto) 0.4 x10^3/uL (0.0-0.7) 0.3 x10^3/uL (0.0-0.7) Basophils # (Auto) 0.1 x10^3/uL (0.0-0.2) 0.1 x10^3/uL (0.0-0.2) Prothrombin Time 12.3 SEC (11.7-14.0) Prothromb Time International Ratio 1.0 (0.8-1.1) Activated Partial Thromboplast Time 27 SEC (24-38) Sodium Level 139 mmol/L (136-145) 139 mmol/L (136-145) Potassium Level 4.1 mmol/L (3.5-5.1) 3.9 mmol/L (3.5-5.1) Chloride Level 101 mmol/L (98-107) 101 mmol/L (98-107) Carbon Dioxide Level 31 mmol/L (21-32) 30 mmol/L (21-32) Anion Gap 7 (6-14) 8 (6-14) Blood Urea Nitrogen 19 mg/dL (7-20) 16 mg/dL (7-20) Creatinine 0.8 mg/dL (0.6-1.0) 0.7 mg/dL (0.6-1.0) Estimated GFR (Cockcroft-Gault) 72.9 85.1 BUN/Creatinine Ratio 24 (6-20) Glucose Level 122 mg/dL (70-99) 126 mg/dL (70-99) Calcium Level 9.4 mg/dL (8.5-10.1) 8.6 mg/dL (8.5-10.1) Total Bilirubin 0.2 mg/dL (0.2-1.0) Aspartate Amino Transf (AST/SGOT) 18 U/L (15-37) Alanine Aminotransferase (ALT/SGPT) 21 U/L (14-59) Alkaline Phosphatase 48 U/L (46-116) Troponin I Quantitative < 0.017 ng/mL (0.000-0.055) Total Protein 7.0 g/dL (6.4-8.2) Albumin 3.3 g/dL (3.4-5.0) Albumin/Globulin Ratio 0.9 (1.0-1.7) Thyroid Stimulating Hormone (TSH) 3.413 uIU/mL (0.358-3.74) Urine Collection Type Unknown Urine Color Yellow Urine Clarity Cloudy Urine pH 7.0 Urine Specific [place] 1.015 Urine Protein Negative mg/dL (NEG-TRACE) Urine Glucose (UA) Negative mg/dL (NEG) Urine Ketones (Stick) Trace mg/dL (NEG) Urine Blood Negative (NEG) Urine Nitrite Negative (NEG) Urine Bilirubin Negative (NEG) Urine Urobilinogen Dipstick 1.0 mg/dL (0.2 mg/dL) Urine Leukocyte Esterase Small (NEG) Urine RBC 0 /HPF (0-2) Urine WBC 1-4 /HPF (0-4) Urine Squamous Epithelial Cells Few /LPF Urine Amorphous Sediment Present /HPF Urine Bacteria Few /HPF (0-FEW) Glucose (Fingerstick) 107 mg/dL (70-99) Test 02/24/17 07:26 02/24/17 11:25 Glucose (Fingerstick) 119 mg/dL (70-99) 136 mg/dL (70-99) VTE Prophylaxis Ordered VTE Prophylaxis Devices: Yes VTE Pharmacological Prophylaxi: Yes Assessment/Plan Assessment/Plan 1. gl ext weakness, could be 2/2 spinal stenosis 2. h/o cervical fusion sx 3. hld 4. DM2 5. neuropathy plan: fu with neuro, neurosx MRI brain as per neuro cont home meds SSI dvt ppx KELLY RIVERA MD February 24, 2017 11:57
--- NOTE | 2017-02-24 12:01 | PDOC2 ---
NEUROLOGY CONSULT Date of Admission Date of Admission DATE: 02/24/17 TIME: 11:53 Reason for Consult Reason for Consult: Altered mental status Referring Physician Referring Physician: Dr. Tian PCP: Dr. Sullivan Source Source: Caregiver, Chart review, Patient History of Present Illness History of Present Illness The patient is a 61-year-old right-handed female with history of cervical myelopathy status-post cervical decompression 14 years ago, who in the past few days has noticed recurrence of the same symptoms as she had done. She describes tingling in the arms and legs, weakness, as well as difficulty finding words and thinking. She feels as if her brain is in a fog. There is no history of stroke, seizure, or head injury. Past Medical History Cardiovascular: Hyperlipidemia Musculoskeletal: Other (cervical spinal stenosis) Endocrine: Diabetes Dermatology: Other (seborrhea) Past Surgical History Past Surgical History: Tonsillectomy, Hysterectomy, Other (oral, cervical decompression, fusion C5-6, removal of colonic polyps, laparoscopy for adhesions ) Family History Family History: Cancer Social History Social History , is with her in the room, no tobacco, rare alcohol Current Medications Current Medications Current Medications Fentanyl Citrate (Fentanyl 2ml Vial) 50 mcg PRN Q15MIN PRN IV PAIN GREATER THAN 3/10 Last administered on 02/23/17 16:31; Start 02/23/17 at 16:00; Stop 02/24 at 15:59 Ondansetron HCl (Zofran) 4 mg PRN Q8HRS PRN IV NAUSEA/VOMITING; Start 02/23/17 at 19:15; Stop 02/24/17 at 19:14 Morphine Sulfate 4 mg PRN Q2HR PRN IV PAIN Last administered on 02/24/17 10:51 ; Start 02/23/17 at 19:15; Stop 02/24/17 at 19:14 Acetaminophen (Tylenol) 650 mg PRN Q4HRS PRN PO FEVER; Start 02/23/17 at 19:15; Stop 02/24/17 at 19:14 Aspirin (Ecotrin) 81 mg DAILY PO Last administered on 02/24/17 09:39; Start 02/24/17 at 09:00 Baclofen (Lioresal) 10 mg TID PO Last administered on 02/24/17 09:40; Start 02/24/17 at 09:00 Calcium Polycarbophil (Fibercon) 625 mg DAILY PO Last administered on 02/24/17 09:39; Start 02/24/17 at 09:00 Diphenhydramine HCl (Benadryl) 50 mg HS PO ; Start 02/24/17 at 21:00 Docusate Sodium (Colace) 100 mg HS PO ; Start 02/24/17 at 21:00 Ergocalciferol (Vitamin D2) 50,000 unit Fr PO Last administered on 02/24/17 09: 39; Start 02/24/17 at 09:00 Estrogens Conjugated (Premarin) 0.3 jaleesa MoWeFr VG ; Start 02/24/17 at 21:00 Acetaminophen/ Hydrocodone Bitart (Lortab 7.5/325) 1 tab PRN Q6HRS PRN PO PAIN Last administered on 02/24/17 10:51; Start 02/24/17 at 09:15 Ketoconazole (Nizoral 2% Topical) 15 jaleesa BID TP ; Start 02/24/17 at 09:15 Metformin HCl (Glucophage) 1,000 mg BIDWMEALS PO Last administered on 02/24/17 09:39; Start 02/24/17 at 09:00 Oxybutynin Chloride (Ditropan) 5 mg HS PO ; Start 02/24/17 at 21:00 Simvastatin (Zocor) 40 mg HS PO ; Start 02/24/17 at 21:00 Escitalopram Oxalate (Lexapro) 20 mg QHS PO ; Start 02/25/17 at 09:00 Gabapentin (Neurontin) 1,200 mg BID PO Last administered on 02/24/17 09:39; Start 02/24/17 at 09:15 Fish Oil (Fish Oil) 1,000 mg BID PO Last administered on 02/24/17 09:39; Start 02/24/17 at 09:30 Acetaminophen (Tylenol) 650 mg PRN Q6HRS PRN PO FEVER; Start 02/24/17 at 09:15 Ondansetron HCl (Zofran) 4 mg PRN Q6HRS PRN IV NAUSEA/VOMITING; Start 02/24/17 at 09:15 Insulin Aspart (Novolog) 0-9 UNITS TIDWMEALS SQ ; Start 02/24/17 at 12:00 Dextrose (Dextrose 50%-Water Syringe) 12.5 gm PRN Q15MIN PRN IV SEE COMMENTS; Start 02/24/17 at 09:15 Active Scripts Active Reported Vitamin D2 (Ergocalciferol (Vitamin D2)) 50,000 Unit Capsule 50,000 Unit PO WEEKLY Fibercon (Calcium Polycarbophil) 625 Mg Tablet 625 Mg PO DAILY Colace (Docusate Sodium) 100 Mg Capsule 100 Mg PO HS Fish Oil (Onsted-3 Fatty Acids) 500 Mg Capsule.dr 1,200 Mg PO BID Ketoconazole 120 Ml Shampoo 120 Ml TP 3X/WEEK Ketoconazole 15 Gm Cream..g. 15 Gm TP BID Oxybutynin Chloride 5 Mg Tablet 5 Mg PO HS Hydrocodone-Apap 7.5-325 (Hydrocodone Bit/Acetaminophen) 1 Each Tablet 1 Tab PO PRN Q4-6HRS PRN Premarin (Estrogens, Conjugated) 30 Gm Cream.appl 0.3 Jaleesa VG 3X/WEEK Escitalopram Oxalate 20 Mg Tablet 20 Mg PO HS Baclofen 10 Mg Tablet 10 Mg PO TID Simvastatin 40 Mg Tablet 40 Mg PO HS Metformin Hcl 1,000 Mg Tablet 1,000 Mg PO BIDWMEALS Gabapentin 800 Mg Tablet 1,200 Mg PO BID Benadryl (Diphenhydramine Hcl) 25 Mg Capsule 50 Mg PO HS Aspir 81 (Aspirin) 81 Mg Tablet.dr 81 Mg PO Estarylla (Norgestimate-Ethinyl Estradiol) 1 Each Tablet 1 Each PO Claritin (Loratadine) 10 Mg Capsule 10 Mg PO Allergies Allergies: Coded Allergies: No Known Drug Allergies (Unverified , 12/17/13) ROS Review of System Patient denies fevers, chills, weight loss, dyspnea, angina, abdominal pain, change in bowels, or dysuria. 14 point review of systems is negative. Physical Exam Physical Examination PHYSICAL EXAMINATION: Vital signs: see above. General appearance is normal and in no acute distress. HEENT: Normocephalic and nontraumatic. Eyes, nose, ears, and throat are unremarkable. Neck is supple. No lymphadenopathy. No bruits are heard over the carotid artery. No crepitus. NEUROLOGICAL EXAMINATION: Mental Status Examination: Alert. Oriented to time, place, and person. Answers questions and follows commends. Pupils are equal round and reactive to light and accommodation. Funduscopic exam: No papilledema. Extraocular movements are intact. Visual field exam shows no defect on the direct confrontation. No motor or sensory deficits on the facial exam. Uvula in the midline and the soft palate elevated symmetrically. No deviation of the tongue to any direction. Gross hearing is normal. Shoulder shrug normal. Muscle tone is normal. Muscle strength is 4/5. Deep tendon reflexes are 2+, except 3+ bilateral knees. Plantar reflex is with flexion response bilaterally. Finger- to-nose test performance is accurate. Alternative movements are accurate. Gait not tested. Sensory exam shows sensory level below C5. No cerebellar signs are elicited. Vitals VITALS Vital Signs Date Time Temp Pulse Resp B/P (MAP) Pulse Ox O2 Delivery O2 Flow Rate FiO2 02/24/17 11:21 Room Air 02/24/17 11:10 97.9 78 16 118/76 (90) 94 97.9 Labs Labs Laboratory Tests Test 02/23/17 16:10 02/23/17 19:25 02/23/17 21:55 02/24/17 03:36 White Blood Count 10.0 x10^3/uL (4.0-11.0) 9.8 x10^3/uL (4.0-11.0) Red Blood Count 4.14 x10^6/uL (3.50-5.40) 4.09 x10^6/uL (3.50-5.40) Hemoglobin 12.1 g/dL (12.0-15.5) 12.0 g/dL (12.0-15.5) Hematocrit 37.0 % (36.0-47.0) 36.2 % (36.0-47.0) Mean Corpuscular Volume 89 fL (79-100) 88 fL (79-100) Mean Corpuscular Hemoglobin 29 pg (25-35) 29 pg (25-35) Mean Corpuscular Hemoglobin Concent 33 g/dL (31-37) 33 g/dL (31-37) Red Cell Distribution Width 13.9 % (11.5-14.5) 14.0 % (11.5-14.5) Platelet Count 315 x10^3/uL (140-400) 308 x10^3/uL (140-400) Neutrophils (%) (Auto) 57 % (31-73) 50 % (31-73) Lymphocytes (%) (Auto) 32 % (24-48) 40 % (24-48) Monocytes (%) (Auto) 6 % (0-9) 6 % (0-9) Eosinophils (%) (Auto) 4 % (0-3) 3 % (0-3) Basophils (%) (Auto) 1 % (0-3) 1 % (0-3) Neutrophils # (Auto) 5.7 x10^3uL (1.8-7.7) 4.9 x10^3uL (1.8-7.7) Lymphocytes # (Auto) 3.2 x10^3/uL (1.0-4.8) 3.9 x10^3/uL (1.0-4.8) Monocytes # (Auto) 0.6 x10^3/uL (0.0-1.1) 0.6 x10^3/uL (0.0-1.1) Eosinophils # (Auto) 0.4 x10^3/uL (0.0-0.7) 0.3 x10^3/uL (0.0-0.7) Basophils # (Auto) 0.1 x10^3/uL (0.0-0.2) 0.1 x10^3/uL (0.0-0.2) Prothrombin Time 12.3 SEC (11.7-14.0) Prothromb Time International Ratio 1.0 (0.8-1.1) Activated Partial Thromboplast Time 27 SEC (24-38) Sodium Level 139 mmol/L (136-145) 139 mmol/L (136-145) Potassium Level 4.1 mmol/L (3.5-5.1) 3.9 mmol/L (3.5-5.1) Chloride Level 101 mmol/L (98-107) 101 mmol/L (98-107) Carbon Dioxide Level 31 mmol/L (21-32) 30 mmol/L (21-32) Anion Gap 7 (6-14) 8 (6-14) Blood Urea Nitrogen 19 mg/dL (7-20) 16 mg/dL (7-20) Creatinine 0.8 mg/dL (0.6-1.0) 0.7 mg/dL (0.6-1.0) Estimated GFR (Cockcroft-Gault) 72.9 85.1 BUN/Creatinine Ratio 24 (6-20) Glucose Level 122 mg/dL (70-99) 126 mg/dL (70-99) Calcium Level 9.4 mg/dL (8.5-10.1) 8.6 mg/dL (8.5-10.1) Total Bilirubin 0.2 mg/dL (0.2-1.0) Aspartate Amino Transf (AST/SGOT) 18 U/L (15-37) Alanine Aminotransferase (ALT/SGPT) 21 U/L (14-59) Alkaline Phosphatase 48 U/L (46-116) Troponin I Quantitative < 0.017 ng/mL (0.000-0.055) Total Protein 7.0 g/dL (6.4-8.2) Albumin 3.3 g/dL (3.4-5.0) Albumin/Globulin Ratio 0.9 (1.0-1.7) Thyroid Stimulating Hormone (TSH) 3.413 uIU/mL (0.358-3.74) Urine Collection Type Unknown Urine Color Yellow Urine Clarity Cloudy Urine pH 7.0 Urine Specific Irving 1.015 Urine Protein Negative mg/dL (NEG-TRACE) Urine Glucose (UA) Negative mg/dL (NEG) Urine Ketones (Stick) Trace mg/dL (NEG) Urine Blood Negative (NEG) Urine Nitrite Negative (NEG) Urine Bilirubin Negative (NEG) Urine Urobilinogen Dipstick 1.0 mg/dL (0.2 mg/dL) Urine Leukocyte Esterase Small (NEG) Urine RBC 0 /HPF (0-2) Urine WBC 1-4 /HPF (0-4) Urine Squamous Epithelial Cells Few /LPF Urine Amorphous Sediment Present /HPF Urine Bacteria Few /HPF (0-FEW) Glucose (Fingerstick) 107 mg/dL (70-99) Test 02/24/17 07:26 02/24/17 11:25 Glucose (Fingerstick) 119 mg/dL (70-99) 136 mg/dL (70-99) Laboratory Tests Test 02/23/17 16:10 02/23/17 19:25 02/23/17 21:55 02/24/17 03:36 White Blood Count 10.0 x10^3/uL (4.0-11.0) 9.8 x10^3/uL (4.0-11.0) Red Blood Count 4.14 x10^6/uL (3.50-5.40) 4.09 x10^6/uL (3.50-5.40) Hemoglobin 12.1 g/dL (12.0-15.5) 12.0 g/dL (12.0-15.5) Hematocrit 37.0 % (36.0-47.0) 36.2 % (36.0-47.0) Mean Corpuscular Volume 89 fL (79-100) 88 fL (79-100) Mean Corpuscular Hemoglobin 29 pg (25-35) 29 pg (25-35) Mean Corpuscular Hemoglobin Concent 33 g/dL (31-37) 33 g/dL (31-37) Red Cell Distribution Width 13.9 % (11.5-14.5) 14.0 % (11.5-14.5) Platelet Count 315 x10^3/uL (140-400) 308 x10^3/uL (140-400) Neutrophils (%) (Auto) 57 % (31-73) 50 % (31-73) Lymphocytes (%) (Auto) 32 % (24-48) 40 % (24-48) Monocytes (%) (Auto) 6 % (0-9) 6 % (0-9) Eosinophils (%) (Auto) 4 % (0-3) 3 % (0-3) Basophils (%) (Auto) 1 % (0-3) 1 % (0-3) Neutrophils # (Auto) 5.7 x10^3uL (1.8-7.7) 4.9 x10^3uL (1.8-7.7) Lymphocytes # (Auto) 3.2 x10^3/uL (1.0-4.8) 3.9 x10^3/uL (1.0-4.8) Monocytes # (Auto) 0.6 x10^3/uL (0.0-1.1) 0.6 x10^3/uL (0.0-1.1) Eosinophils # (Auto) 0.4 x10^3/uL (0.0-0.7) 0.3 x10^3/uL (0.0-0.7) Basophils # (Auto) 0.1 x10^3/uL (0.0-0.2) 0.1 x10^3/uL (0.0-0.2) Prothrombin Time 12.3 SEC (11.7-14.0) Prothromb Time International Ratio 1.0 (0.8-1.1) Activated Partial Thromboplast Time 27 SEC (24-38) Sodium Level 139 mmol/L (136-145) 139 mmol/L (136-145) Potassium Level 4.1 mmol/L (3.5-5.1) 3.9 mmol/L (3.5-5.1) Chloride Level 101 mmol/L (98-107) 101 mmol/L (98-107) Carbon Dioxide Level 31 mmol/L (21-32) 30 mmol/L (21-32) Anion Gap 7 (6-14) 8 (6-14) Blood Urea Nitrogen 19 mg/dL (7-20) 16 mg/dL (7-20) Creatinine 0.8 mg/dL (0.6-1.0) 0.7 mg/dL (0.6-1.0) Estimated GFR (Cockcroft-Gault) 72.9 85.1 BUN/Creatinine Ratio 24 (6-20) Glucose Level 122 mg/dL (70-99) 126 mg/dL (70-99) Calcium Level 9.4 mg/dL (8.5-10.1) 8.6 mg/dL (8.5-10.1) Total Bilirubin 0.2 mg/dL (0.2-1.0) Aspartate Amino Transf (AST/SGOT) 18 U/L (15-37) Alanine Aminotransferase (ALT/SGPT) 21 U/L (14-59) Alkaline Phosphatase 48 U/L (46-116) Troponin I Quantitative < 0.017 ng/mL (0.000-0.055) Total Protein 7.0 g/dL (6.4-8.2) Albumin 3.3 g/dL (3.4-5.0) Albumin/Globulin Ratio 0.9 (1.0-1.7) Thyroid Stimulating Hormone (TSH) 3.413 uIU/mL (0.358-3.74) Urine Collection Type Unknown Urine Color Yellow Urine Clarity Cloudy Urine pH 7.0 Urine Specific Irving 1.015 Urine Protein Negative mg/dL (NEG-TRACE) Urine Glucose (UA) Negative mg/dL (NEG) Urine Ketones (Stick) Trace mg/dL (NEG) Urine Blood Negative (NEG) Urine Nitrite Negative (NEG) Urine Bilirubin Negative (NEG) Urine Urobilinogen Dipstick 1.0 mg/dL (0.2 mg/dL) Urine Leukocyte Esterase Small (NEG) Urine RBC 0 /HPF (0-2) Urine WBC 1-4 /HPF (0-4) Urine Squamous Epithelial Cells Few /LPF Urine Amorphous Sediment Present /HPF Urine Bacteria Few /HPF (0-FEW) Glucose (Fingerstick) 107 mg/dL (70-99) Test 02/24/17 07:26 02/24/17 11:25 Glucose (Fingerstick) 119 mg/dL (70-99) 136 mg/dL (70-99) TSH: 3.413, normal Images Images Head CT: Negative Cervical MRI: COMPARISON December 17, 2013. FINDINGS No marrow infiltrative process or discitis is seen. Anterior cervical fusion is seen at C5 and C6. There is paramagnetic susceptibility artifact from the anterior cervical spine screws. The C5-6 intervertebral disc space is fused. No discitis is seen. Laminectomy defect of C5 and C6 is seen. There is cervical cord signal abnormality at the C6 level which was seen previously. This has not changed significantly. This is consistent with chronic myelomalacia. No progressive cervical cord atrophy is seen. No new cervical cord signal abnormality is seen. No cerebellar tonsillar ectopia is seen. At C2-3, no focal disc protrusion or spinal canal stenosis or neural foraminal narrowing is seen. At C3-4, there is a mild central disc protrusion which indents the anterior aspect of the thecal sac and comes in contact with the anterior surface of the cervical cord. This has not changed significantly. There is moderate narrowing of the right neural foramen. This is unchanged. At C4-5, mild retrolisthesis is seen. There is mild degenerative endplate spurring and diffuse disc bulging present. No significant spinal canal stenosis is evident. There is moderate narrowing of the right neural foramen and mild narrowing of the left neural foramen. The neural foramen narrowing on the right side has increased. At C5-6, the disc space is fused. No spinal canal stenosis is seen. There is moderate narrowing of the neural foramina bilaterally. This has not changed. At C6-7, grade 1 anterolisthesis is seen. There is no significant disc protrusion at this level. There is mild degenerative endplate spurring. No progressive spinal canal stenosis is seen. There is moderate narrowing of the left neural foramen and mild narrowing of the right neural foramen. This is unchanged. At C7-T1, no focal disc protrusion or spinal canal stenosis or neural foraminal narrowing is seen. IMPRESSION Degenerative cervical spondylosis and disc bulging and neural foraminal narrowing as discussed above. See discussion above for each level. There has been progressive moderate narrowing of the right neural foramen at C4-5 since the previous study. No other new finding is seen from December 17, 2013. Stable cervical cord signal abnormality is seen at C6 consistent with chronic myelomalacia. No progressive atrophy is evident. No new cervical cord abnormality is evident. Assessment/Plan Assessment/Plan Impression: Cervical myelopathy, but MRI shows no change from 3 years ago. Therefore, there is nothing compressing the spinal cord. I doubt that there is an acute myelitis. There may be decompensation from the prior myelomalacia, need to rule out metabolic or nutritional factors as a cause. She is having some worrisome intracranial symptoms, but nothing is abnormal on her mental status or cranial-nerve examination. Recommendations: MRI of the brain Laboratory studies Rehabilitation modalities and physical medicine/rehabilitation consult I left a message with Destiny nurse practitioner in Dr. Lucas's office I do not think that neurosurgery can offer anything. I also discussed my findings with the patient and her . Thank you for letting me help with the patient's care. CHERI PARDO MD February 24, 2017 12:01
[2017-02-24] MEDS: methylPREDNISolone 4 MG TABLET. PO SCH ×2 (12:30→17:30)
--- NOTE | 2017-02-24 12:57 | RAD ---
PROCEDURE MRI brain without contrast. HISTORY Confusion and difficulty with speech. Unsteady gait. TECHNIQUE Sagittal T1, axial T1, axial T2, axial FLAIR, axial T2 gradient, coronal T2, and diffusion imaging with ADC map were performed. COMPARISON CT head February 23, 2017. FINDINGS The ventricles and sulci are within normal limits for age. A few scattered FLAIR hyperintensities in the supratentorial white matter are nonspecific but most suggestive of minimal small vessel ischemic disease. There is no acute intracranial hemorrhage or extra-axial fluid collection. There is no mass effect or midline shift. There is no restricted diffusion to suggest an acute infarct. Sagittal midline structures are unremarkable. Pituitary and suprasellar region are unremarkable. Intracranial flow voids are preserved. There is ethmoid and maxillary mucosal thickening. IMPRESSION No acute intracranial findings. Brain parenchymal volume loss and minimal probable small-vessel ischemic disease. Electronically signed by: Diogo Bender MD (February 24, 2017 12:56:33)
[2017-02-24] MEDS: ENOXAPARIN 40 MG/0.4 ML SYRINGE. SQ SCH (13:52)
[2017-02-24 14:57] VITALS: BP 127/79
[2017-02-24] MEDS ORDERED: fentaNYL 25MCG/HR PATCH 1 PATCH PATCH.TD72 TD SCH (17:00)
[2017-02-24] MEDS ORDERED: methylPREDNISolone ACETATE 40 MG/ML VIAL. IM ONE (17:45)
[2017-02-24] MEDS ORDERED: BUPIVACAINE MPF 0.25% 10 ML VIAL. IJ ONE (17:45)
--- NOTE | 2017-02-24 18:33 | PDOC4 ---
PROCEDURE Procedure At her request,I have injected painful trigger points over right cervical paraspinal muscles with marcaine and depomedrol solution under aseptic skin technique,and she tolerated the procedure satisfactorily without any side effects. SVEN DE LOS SANTOS MD February 24, 2017 18:33
[2017-02-24 19:08] VITALS: BP 124/65
[2017-02-24] MEDS ORDERED: PANTOPRAZOLE IV PUSH 40 MG VIAL. IVP ONE (20:00)
[2017-02-24] MEDS ORDERED: ESTROGENS, CONJ VAGINAL CREAM 30GM TUBE. VG SCH (21:00)
[2017-02-24] MEDS: OXYBUTYNIN CHLORIDE 5 MG TABLET PO SCH (21:25)
[2017-02-24] MEDS: diphenhydrAMINE HCL 25 MG CAPSULE PO SCH (21:25)
[2017-02-24] MEDS: DOCUSATE SODIUM 100 MG CAPSULE. PO SCH (21:25)
[2017-02-24] MEDS: SIMVASTATIN 40 MG TABLET. PO SCH (21:25)
[2017-02-24] MEDS: LIDOCAINE (700MG/PATCH) PATCH. TD SCH (21:27)
[2017-02-24 23:06] VITALS: BP_SYST 112; BP_SYST 135; BP_DIAS 70; BP_DIAS 85
[2017-02-25] MEDS: KETOCONAZOLE 2% TOPICAL CREAM 15GM TUBE. TP SCH ×3 (00:02→21:08)
[2017-02-25 03:02] VITALS: BP 103/74
--- NOTE | 2017-02-25 04:14 | CONS ---
DATE OF CONSULTATION: 02/24/2017 ATTENDING PHYSICIAN: Dr. Tian. The patient was seen at the request of Dr. Tian for rehab evaluation. HISTORY OF PRESENT ILLNESS: This is a 61-year-old female admitted through the Emergency Room on 02/23/2017 with increasing neck pain with associated headaches and numbness in her upper extremities going on for about a month and also some lower extremity pain, weakness and numbness. Recently, she denies any falls. The patient is status post cervical decompression laminectomy and fusion done by Dr. Tristan in 2002. She continued to have some numbness in her hands and occasional neck pain, but it was never consistent like this that is going on for the last one month. The patient has been using physical modalities, Icy Hot and some massage and had been taking hydrocodone for pain. The patient admits some constipation and not having good flow of urine and occasional stress incontinence. The patient with known diabetes mellitus type 2, hyperlipidemia, also history of dermatitis, neuropathy, status post , hysterectomy, also lumbar laminectomy, oophorectomy, tonsillectomy, mesh bladder sling. She is not known allergic to any medication. She lives with her family in [facility], had stairs for her to manage and she has been using a roller walker to get around. She is not working. The patient since admission had an MRI scan of her cervical vertebrae done, which revealed multilevel degenerative disk disease and degenerative joint disease, specifically mild central disk protrusion which indents the anterior aspect of the thecal sac and comes in contact of the anterior surface of the cervical cord, this has not changed significantly since the study done in 11/2013. Moderate narrowing of right neural foramen which is also unchanged at C4-C5, mild retrolisthesis seen, mild degenerative endplate spurring and diffuse disk bulging present. No significant central canal stenosis was noted. Moderate narrowing of right neural foramina and mild narrowing of left neural foramina. The neural foraminal narrowing on the right side has increased since last study. C5-C6 disk space is fused. There is moderate narrowing of neural foramina bilaterally, not changed since the previous study. At C6-C7 grade 1 anterolisthesis seen. No significant disk protrusion at this level, mild degenerative endplate spurring, no ____ spinal canal stenosis is seen. Moderate narrowing of left neural foramina and mild narrowing of right neural foramina unchanged from the previous study. The patient had MRI scan of the brain done, which revealed brain parenchymal loss and minimal probable small vessel ischemic disease. Chest x-ray was negative. CT of the head, no acute findings noted. The patient was seen by Physical Therapy today, they noted her complaining of lightheadedness and dizziness and increased pain with activity. She became tearful during evaluation, stating that she really did not want to do physical therapy and her spouse stated that it was ridiculous to offer only physical therapy as a treatment. His , who he stated up until 2 days ago was independent with walking and dressing. She started at 4/10 sitting at the edge of the bed with her pain and increased to 7/10 with activity. She rolled to the left with supervision, supine to sit supervision, transfers, contact guard assistance, sit to stand transfers using a roller walker with a contact guard assistance and she walks for about 20 feet using a roller walker with flexed posture, slow lillian, short step length, shuffling gait, decreased foot clearance, she walked into the bathroom, toilet and became tearful, leaning on sink, required chair right back to the room. PHYSICAL EXAMINATION: Today revealed a middle-aged female. She is alert, oriented to time, place, person and circumstance and follows commands appropriately. Cooperative during the examination, maybe slight giving up kind of weakness in dorsiflexor muscles of both feet. The patient had painful limited movements of her cervical and lumbar spine with tenderness to palpation over cervical paraspinal muscles extending over to posterior shoulder girdle muscles, over lumbar paraspinal muscles extending over to sacroiliac joint area and straight leg raising test is negative bilaterally. She had minimal degree of cervical and lumbar paraspinal muscle spasm. The patient had 4+/5 grade muscle strength overall with some kind of give up kind of weakness in her hand intrinsic muscles, shoulder abductors, elbow flexors and dorsiflexor muscles of both feet. Deep tendon reflexes are 1-2+ and symmetrical and she had equal perception of touch and pinprick sensation bilaterally. She is independent with rolling from side to side. I have not tested her transfers or ambulation skills at this time. ASSESSMENT: A middle-aged female with chronic neck and lower back pain, status post previous cervical and lumbar decompressive laminectomy with increased neck pain and upper extremity numbness and also upper extremity and lower extremity weakness for the last one month with radiological evidence of multilevel degenerative disk disease and degenerative joint disease of cervical vertebrae with some degree of neural foraminal compromise. RECOMMENDATIONS: To start her on Medrol Dosepak, to obtain her lumbar corset, to consider trigger point injection to help ease her neck and back pain. To ask Physical Therapy to try physical modality to help ease her neck and back pain. To consider transfer to Inpatient Rehabilitation Unit for better pain control and help her with mobility and self-care deficits when medically stable. Dr. Tian, I appreciate asking me to participate in the care of this interesting patient. I will be glad to follow her with you as needed for her rehabilitation. SVEN DE LOS SANTOS MD DR: TELLY/anaid JOB#: [id number] / [id number]
[2017-02-25 06:17] LABS: BASO # 0.1 x10^3/uL (0.0-0.2); BASO % 1 % (0-3); EOS % 2 % (0-3); HEMATOCRIT 35.8 % (36.0-47.0); HEMOGLOBIN 11.8 g/dL (12.0-15.5); LYMPH # 2.5 x10^3/uL (1.0-4.8); LYMPH % 28 % (24-48); MEAN CORPUSCULAR HEMOGLOBIN 29 pg (25-35); MEAN CORPUSCULAR HGB CONC 33 g/dL (31-37); MEAN CORPUSCULAR VOLUME 89 fL (79-100); MONO % 5 % (0-9); NEUT % 64 % (31-73); PLATELET COUNT 303 x10^3/uL (140-400); RED BLOOD COUNT 4.03 x10^6/uL (3.50-5.40)
[2017-02-25 06:46] LABS: CALCIUM 8.6 mg/dL (8.5-10.1); CREATININE 0.7 mg/dL (0.6-1.0); GFR 85.1; POTASSIUM 4.2 mmol/L (3.5-5.1)
[2017-02-25 07:00] VITALS: BP 116/69
[2017-02-25] MEDS: INSULIN ASPART 300 UNITS/3 ML INSULN.PEN SQ SCH ×3 (08:00→17:00)
[2017-02-25] MEDS ORDERED: methylPREDNISolone 4 MG TABLET. PO SCH ×2 (08:30→21:00)
[2017-02-25] MEDS: methylPREDNISolone 4 MG TABLET. PO SCH ×4 (09:00→21:06)
[2017-02-25] MEDS: GABAPENTIN 400 MG CAPSULE. PO SCH ×2 (09:00→21:06)
[2017-02-25] MEDS: ASPIRIN ENTERIC COATED 81 MG TABLET.DR. PO SCH (09:00)
[2017-02-25] MEDS: CALCIUM POLYCARBOPHIL 625 MG TABLET PO SCH (09:00)
[2017-02-25] MEDS: PANTOPRAZOLE 40 MG TABLET.DR. PO SCH (09:00)
[2017-02-25] MEDS: ESCITALOPRAM 10 MG TABLET. PO SCH ×2 (09:01→21:07)
[2017-02-25] MEDS: BACLOFEN 10 MG TABLET. PO SCH ×3 (09:01→21:07)
[2017-02-25] MEDS: OMEGA-3 FATTY ACIDS/FISH OIL 1,000 MG CAPSULE. PO SCH ×2 (09:01→21:07)
[2017-02-25] MEDS: LIDOCAINE (700MG/PATCH) PATCH. TD SCH (09:04)
--- NOTE | 2017-02-25 09:38 | PDOC ---
PROGRESS NOTES Subjective Subjective She admits some help with trigger point injection to her neck. Objective Objective Vital Signs Date Time Temp Pulse Resp B/P (MAP) Pulse Ox O2 Delivery O2 Flow Rate FiO2 02/25/17 07:00 97.5 69 20 116/69 (85) 97 Room Air 97.5 Intake and Output 02/25/17 06:59 Intake Total 1300 ml Balance 1300 ml Intake Oral 1300 ml # Voids 5 Physical Exam Physical Exam She is alert,trying to eat breakfast and she continues with painfully limited cervical and lumbar spine ROM with tenderness to palpation over cervical,lumbar paraspinal and posterior shoulder girdle muscles and over sacroiliac joints. Assessment Assessment Problems Medical Problems: (1) Generalized weakness Status: Acute (2) Neural foraminal stenosis of cervical spine Status: Acute (3) Paresthesias Status: Acute (4) Weakness Status: Acute Plan Plan of Care I have asked physical therapy to try physical modalities and she had not started on medrol dose pack as she felt nauseous and did not eat any food yesterday. To await mri scan of her lumbar spine and waiting for lumbar corset. Comment Review of Relevant I have reviewed the following items cailin (where applicable) has been applied. Labs Laboratory Tests Test 02/23/17 16:10 02/23/17 19:25 02/23/17 21:55 02/24/17 03:36 White Blood Count 10.0 x10^3/uL (4.0-11.0) 9.8 x10^3/uL (4.0-11.0) Red Blood Count 4.14 x10^6/uL (3.50-5.40) 4.09 x10^6/uL (3.50-5.40) Hemoglobin 12.1 g/dL (12.0-15.5) 12.0 g/dL (12.0-15.5) Hematocrit 37.0 % (36.0-47.0) 36.2 % (36.0-47.0) Mean Corpuscular Volume 89 fL (79-100) 88 fL (79-100) Mean Corpuscular Hemoglobin 29 pg (25-35) 29 pg (25-35) Mean Corpuscular Hemoglobin Concent 33 g/dL (31-37) 33 g/dL (31-37) Red Cell Distribution Width 13.9 % (11.5-14.5) 14.0 % (11.5-14.5) Platelet Count 315 x10^3/uL (140-400) 308 x10^3/uL (140-400) Neutrophils (%) (Auto) 57 % (31-73) 50 % (31-73) Lymphocytes (%) (Auto) 32 % (24-48) 40 % (24-48) Monocytes (%) (Auto) 6 % (0-9) 6 % (0-9) Eosinophils (%) (Auto) 4 % (0-3) 3 % (0-3) Basophils (%) (Auto) 1 % (0-3) 1 % (0-3) Neutrophils # (Auto) 5.7 x10^3uL (1.8-7.7) 4.9 x10^3uL (1.8-7.7) Lymphocytes # (Auto) 3.2 x10^3/uL (1.0-4.8) 3.9 x10^3/uL (1.0-4.8) Monocytes # (Auto) 0.6 x10^3/uL (0.0-1.1) 0.6 x10^3/uL (0.0-1.1) Eosinophils # (Auto) 0.4 x10^3/uL (0.0-0.7) 0.3 x10^3/uL (0.0-0.7) Basophils # (Auto) 0.1 x10^3/uL (0.0-0.2) 0.1 x10^3/uL (0.0-0.2) Prothrombin Time 12.3 SEC (11.7-14.0) Prothromb Time International Ratio 1.0 (0.8-1.1) Activated Partial Thromboplast Time 27 SEC (24-38) Sodium Level 139 mmol/L (136-145) 139 mmol/L (136-145) Potassium Level 4.1 mmol/L (3.5-5.1) 3.9 mmol/L (3.5-5.1) Chloride Level 101 mmol/L (98-107) 101 mmol/L (98-107) Carbon Dioxide Level 31 mmol/L (21-32) 30 mmol/L (21-32) Anion Gap 7 (6-14) 8 (6-14) Blood Urea Nitrogen 19 mg/dL (7-20) 16 mg/dL (7-20) Creatinine 0.8 mg/dL (0.6-1.0) 0.7 mg/dL (0.6-1.0) Estimated GFR (Cockcroft-Gault) 72.9 85.1 BUN/Creatinine Ratio 24 (6-20) Glucose Level 122 mg/dL (70-99) 126 mg/dL (70-99) Calcium Level 9.4 mg/dL (8.5-10.1) 8.6 mg/dL (8.5-10.1) Total Bilirubin 0.2 mg/dL (0.2-1.0) Aspartate Amino Transf (AST/SGOT) 18 U/L (15-37) Alanine Aminotransferase (ALT/SGPT) 21 U/L (14-59) Alkaline Phosphatase 48 U/L (46-116) Troponin I Quantitative < 0.017 ng/mL (0.000-0.055) Total Protein 7.0 g/dL (6.4-8.2) Albumin 3.3 g/dL (3.4-5.0) Albumin/Globulin Ratio 0.9 (1.0-1.7) Thyroid Stimulating Hormone (TSH) 3.413 uIU/mL (0.358-3.74) Urine Collection Type Unknown Urine Color Yellow Urine Clarity Cloudy Urine pH 7.0 Urine Specific Waves 1.015 Urine Protein Negative mg/dL (NEG-TRACE) Urine Glucose (UA) Negative mg/dL (NEG) Urine Ketones (Stick) Trace mg/dL (NEG) Urine Blood Negative (NEG) Urine Nitrite Negative (NEG) Urine Bilirubin Negative (NEG) Urine Urobilinogen Dipstick 1.0 mg/dL (0.2 mg/dL) Urine Leukocyte Esterase Small (NEG) Urine RBC 0 /HPF (0-2) Urine WBC 1-4 /HPF (0-4) Urine Squamous Epithelial Cells Few /LPF Urine Amorphous Sediment Present /HPF Urine Bacteria Few /HPF (0-FEW) Glucose (Fingerstick) 107 mg/dL (70-99) Test 02/24/17 07:26 02/24/17 11:25 02/24/17 17:06 02/24/17 20:42 Glucose (Fingerstick) 119 mg/dL (70-99) 136 mg/dL (70-99) 159 mg/dL (70-99) 178 mg/dL (70-99) Test 02/25/17 05:20 02/25/17 07:40 White Blood Count 9.0 x10^3/uL (4.0-11.0) Red Blood Count 4.03 x10^6/uL (3.50-5.40) Hemoglobin 11.8 g/dL (12.0-15.5) Hematocrit 35.8 % (36.0-47.0) Mean Corpuscular Volume 89 fL (79-100) Mean Corpuscular Hemoglobin 29 pg (25-35) Mean Corpuscular Hemoglobin Concent 33 g/dL (31-37) Red Cell Distribution Width 14.0 % (11.5-14.5) Platelet Count 303 x10^3/uL (140-400) Neutrophils (%) (Auto) 64 % (31-73) Lymphocytes (%) (Auto) 28 % (24-48) Monocytes (%) (Auto) 5 % (0-9) Eosinophils (%) (Auto) 2 % (0-3) Basophils (%) (Auto) 1 % (0-3) Neutrophils # (Auto) 5.7 x10^3uL (1.8-7.7) Lymphocytes # (Auto) 2.5 x10^3/uL (1.0-4.8) Monocytes # (Auto) 0.5 x10^3/uL (0.0-1.1) Eosinophils # (Auto) 0.2 x10^3/uL (0.0-0.7) Basophils # (Auto) 0.1 x10^3/uL (0.0-0.2) Erythrocyte Sedimentation Rate 26 (0-25) Sodium Level 138 mmol/L (136-145) Potassium Level 4.2 mmol/L (3.5-5.1) Chloride Level 101 mmol/L (98-107) Carbon Dioxide Level 29 mmol/L (21-32) Anion Gap 8 (6-14) Blood Urea Nitrogen 16 mg/dL (7-20) Creatinine 0.7 mg/dL (0.6-1.0) Estimated GFR (Cockcroft-Gault) 85.1 Glucose Level 136 mg/dL (70-99) Calcium Level 8.6 mg/dL (8.5-10.1) Glucose (Fingerstick) 133 mg/dL (70-99) Laboratory Tests Test 02/24/17 11:25 02/24/17 17:06 02/24/17 20:42 02/25/17 05:20 Glucose (Fingerstick) 136 mg/dL (70-99) 159 mg/dL (70-99) 178 mg/dL (70-99) White Blood Count 9.0 x10^3/uL (4.0-11.0) Red Blood Count 4.03 x10^6/uL (3.50-5.40) Hemoglobin 11.8 g/dL (12.0-15.5) Hematocrit 35.8 % (36.0-47.0) Mean Corpuscular Volume 89 fL (79-100) Mean Corpuscular Hemoglobin 29 pg (25-35) Mean Corpuscular Hemoglobin Concent 33 g/dL (31-37) Red Cell Distribution Width 14.0 % (11.5-14.5) Platelet Count 303 x10^3/uL (140-400) Neutrophils (%) (Auto) 64 % (31-73) Lymphocytes (%) (Auto) 28 % (24-48) Monocytes (%) (Auto) 5 % (0-9) Eosinophils (%) (Auto) 2 % (0-3) Basophils (%) (Auto) 1 % (0-3) Neutrophils # (Auto) 5.7 x10^3uL (1.8-7.7) Lymphocytes # (Auto) 2.5 x10^3/uL (1.0-4.8) Monocytes # (Auto) 0.5 x10^3/uL (0.0-1.1) Eosinophils # (Auto) 0.2 x10^3/uL (0.0-0.7) Basophils # (Auto) 0.1 x10^3/uL (0.0-0.2) Erythrocyte Sedimentation Rate 26 (0-25) Sodium Level 138 mmol/L (136-145) Potassium Level 4.2 mmol/L (3.5-5.1) Chloride Level 101 mmol/L (98-107) Carbon Dioxide Level 29 mmol/L (21-32) Anion Gap 8 (6-14) Blood Urea Nitrogen 16 mg/dL (7-20) Creatinine 0.7 mg/dL (0.6-1.0) Estimated GFR (Cockcroft-Gault) 85.1 Glucose Level 136 mg/dL (70-99) Calcium Level 8.6 mg/dL (8.5-10.1) Test 02/25/17 07:40 Glucose (Fingerstick) 133 mg/dL (70-99) Medications Current Medications Fentanyl Citrate (Fentanyl 2ml Vial) 50 mcg PRN Q15MIN PRN IV PAIN GREATER THAN 3/10 Last administered on 02/23/17 16:31; Start 02/23/17 at 16:00; Stop 02/24 at 15:59; Status DC Ondansetron HCl (Zofran) 4 mg PRN Q8HRS PRN IV NAUSEA/VOMITING; Start 02/23/17 at 19:15; Stop 02/24/17 at 19:14; Status DC Morphine Sulfate 4 mg PRN Q2HR PRN IV PAIN Last administered on 02/24/17 10:51 ; Start 02/23/17 at 19:15; Stop 02/24/17 at 19:14; Status DC Acetaminophen (Tylenol) 650 mg PRN Q4HRS PRN PO FEVER; Start 02/23/17 at 19:15; Stop 02/24/17 at 19:14; Status DC Aspirin (Ecotrin) 81 mg DAILY PO Last administered on 02/25/17 09:00; Start 02/24/17 at 09:00 Baclofen (Lioresal) 10 mg TID PO Last administered on 02/25/17 09:01; Start 02/24/17 at 09:00 Calcium Polycarbophil (Fibercon) 625 mg DAILY PO Last administered on 02/25/17 09:00; Start 02/24/17 at 09:00 Diphenhydramine HCl (Benadryl) 50 mg HS PO Last administered on 02/24/17 21:25 ; Start 02/24/17 at 21:00 Docusate Sodium (Colace) 100 mg HS PO Last administered on 02/24/17 21:25; Start 02/24/17 at 21:00 Ergocalciferol (Vitamin D2) 50,000 unit Fr PO Last administered on 02/24/17 09: 39; Start 02/24/17 at 09:00 Estrogens Conjugated (Premarin) 0.3 jaleesa MoWeFr VG Last administered on 00:02; Start 02/24/17 at 21:00 Acetaminophen/ Hydrocodone Bitart (Lortab 7.5/325) 1 tab PRN Q6HRS PRN PO PAIN Last administered on 02/24/17 10:51; Start 02/24/17 at 09:15 Ketoconazole (Nizoral 2% Topical) 15 jaleesa BID TP Last administered on 02/25/17 00:02; Start 02/24/17 at 09:15 Metformin HCl (Glucophage) 1,000 mg BIDWMEALS PO Last administered on 02/25/17 09:00; Start 02/24/17 at 09:00 Oxybutynin Chloride (Ditropan) 5 mg HS PO Last administered on 02/24/17 21:25; Start 02/24/17 at 21:00 Simvastatin (Zocor) 40 mg HS PO Last administered on 02/24/17 21:25; Start 02/24 at 21:00 Escitalopram Oxalate (Lexapro) 20 mg QHS PO Last administered on 02/25/17 09:01 ; Start 02/25/17 at 09:00 Gabapentin (Neurontin) 1,200 mg BID PO Last administered on 02/25/17 09:00; Start 02/24/17 at 09:15 Fish Oil (Fish Oil) 1,000 mg BID PO Last administered on 02/25/17 09:01; Start 02/24/17 at 09:30 Acetaminophen (Tylenol) 650 mg PRN Q6HRS PRN PO FEVER; Start 02/24/17 at 09:15 Ondansetron HCl (Zofran) 4 mg PRN Q6HRS PRN IV NAUSEA/VOMITING; Start 02/24/17 at 09:15 Insulin Aspart (Novolog) 0-9 UNITS TIDWMEALS SQ ; Start 02/24/17 at 12:00 Dextrose (Dextrose 50%-Water Syringe) 12.5 gm PRN Q15MIN PRN IV SEE COMMENTS; Start 02/24/17 at 09:15 Enoxaparin Sodium (Lovenox 40mg Syringe) 40 mg Q24H SQ Last administered on 02/24 13:52; Start 02/24/17 at 12:00 Fentanyl (Duragesic 25mcg/ Hr Patch) 1 patch Q72H TD Last administered on 17:41; Start 02/24/17 at 17:00 Pantoprazole Sodium (Protonix) 40 mg DAILYAC PO Last administered on 02/25/17 09:00; Start 02/25/17 at 07:30 Methylprednisolone Acetate (DEPO-Medrol 40MG VIAL) 40 mg 1X ONCE IM ; Start 02/24/17 at 17:45; Stop 02/24/17 at 17:57; Status DC Bupivacaine HCl (Sensorcaine-Mpf 0.25%) 10 ml 1X ONCE IJ ; Start 02/24/17 at 17: 45; Stop 02/24/17 at 17:57; Status DC Lidocaine (Lidoderm) 2 patch DAILY TD Last administered on 02/25/17 09:04; Start 02/24/17 at 18:00 Methylprednisolone (Medrol) 8 mg BID PO ; Start 02/24/17 at 09:00; Stop 02/24/17 at 19:52; Status DC Methylprednisolone (Medrol) 4 mg BIDPCLD PO ; Start 02/24/17 at 12:30; Stop at 17:57; Status DC Methylprednisolone (Medrol) 4 mg TIDPC PO ; Start 02/25/17 at 08:30; Stop at 08:30; Status DC Methylprednisolone (Medrol) 8 mg QHS PO ; Start 02/25/17 at 21:00; Stop 02/25/17 at 21:00; Status DC Methylprednisolone (Medrol) 4 mg QIDAFTMEAL PO ; Start 02/26/17 at 09:00; Stop at 09:00; Status DC Methylprednisolone (Medrol) 4 mg TID PO ; Start 02/27/17 at 09:00; Stop 02/27/17 at 09:00; Status DC Methylprednisolone (Medrol) 4 mg BID PO ; Start 02/28/17 at 09:00; Stop 02/28/17 at 09:00; Status DC Methylprednisolone (Medrol) 4 mg DAILY PO ; Start 03/01/17 at 09:00; Stop at 09:00; Status DC Pantoprazole Sodium (Protonix Vial) 40 mg 1X ONCE IVP Last administered on 02/24 21:23; Start 02/24/17 at 20:00; Stop 02/24/17 at 20:01; Status DC Methylprednisolone (Medrol) 8 mg BID PO Last administered on 02/25/17 09:00; Start 02/25/17 at 09:00; Stop 02/25/17 at 21:01 Methylprednisolone (Medrol) 4 mg BIDPCLD PO ; Start 02/25/17 at 12:30; Stop at 17:31 Methylprednisolone (Medrol) 4 mg TIDPC PO ; Start 02/26/17 at 08:30; Stop at 17:31 Methylprednisolone (Medrol) 8 mg QHS PO ; Start 02/26/17 at 21:00; Stop 02/26/17 at 21:01 Methylprednisolone (Medrol) 4 mg QIDAFTMEAL PO ; Start 02/27/17 at 09:00; Stop at 21:01 Methylprednisolone (Medrol) 4 mg TID PO ; Start 02/28/17 at 09:00; Stop 02/28/17 at 21:01 Methylprednisolone (Medrol) 4 mg BID PO ; Start 03/01/17 at 09:00; Stop at 21:01 Methylprednisolone (Medrol) 4 mg DAILY PO ; Start 03/02/17 at 09:00; Stop at 09:01 Active Scripts Active Reported Vitamin D2 (Ergocalciferol (Vitamin D2)) 50,000 Unit Capsule 50,000 Unit PO WEEKLY Fibercon (Calcium Polycarbophil) 625 Mg Tablet 625 Mg PO DAILY Colace (Docusate Sodium) 100 Mg Capsule 100 Mg PO HS Fish Oil ([place]-3 Fatty Acids) 500 Mg Capsule.dr 1,200 Mg PO BID Ketoconazole 120 Ml Shampoo 120 Ml TP 3X/WEEK Ketoconazole 15 Gm Cream..g. 15 Gm TP BID Oxybutynin Chloride 5 Mg Tablet 5 Mg PO HS Hydrocodone-Apap 7.5-325 (Hydrocodone Bit/Acetaminophen) 1 Each Tablet 1 Tab PO PRN Q4-6HRS PRN Premarin (Estrogens, Conjugated) 30 Gm Cream.appl 0.3 Jaleesa VG 3X/WEEK Escitalopram Oxalate 20 Mg Tablet 20 Mg PO HS Baclofen 10 Mg Tablet 10 Mg PO TID Simvastatin 40 Mg Tablet 40 Mg PO HS Metformin Hcl 1,000 Mg Tablet 1,000 Mg PO BIDWMEALS Gabapentin 800 Mg Tablet 1,200 Mg PO BID Benadryl (Diphenhydramine Hcl) 25 Mg Capsule 50 Mg PO HS Aspir 81 (Aspirin) 81 Mg Tablet.dr 81 Mg PO Estarylla (Norgestimate-Ethinyl Estradiol) 1 Each Tablet 1 Each PO Claritin (Loratadine) 10 Mg Capsule 10 Mg PO Vitals/I & O Vital Sign - Last 24 Hours 02/24/17 02/24/17 02/24/17 02/24/17 10:51 10:51 11:10 11:21 Temp 97.9 97.9 Pulse 78 Resp 16 B/P (MAP) 118/76 (90) Pulse Ox 94 O2 Delivery Room Air Room Air Room Air Room Air 02/24/17 02/24/17 02/24/17 02/24/17 11:51 14:57 17:41 19:08 Temp 97.9 97.9 97.9 97.9 Pulse 83 74 Resp 16 18 B/P (MAP) 127/79 (95) 124/65 (84) Pulse Ox 94 94 94 O2 Delivery Room Air Room Air Room Air Room Air 02/24/17 02/25/17 02/25/17 23:06 03:02 07:00 Temp 97.7 97.5 97.5 97.7 97.5 97.5 Pulse 67 76 69 Resp 18 18 20 B/P (MAP) 112/70 (84) 103/74 (84) 116/69 (85) Pulse Ox 96 96 97 O2 Delivery Room Air Room Air Room Air Intake and Output 02/24/17 02/24/17 02/25/17 14:59 22:59 06:59 Intake Total 500 ml 800 ml Balance 500 ml 800 ml SVEN DE LOS SANTOS MD February 25, 2017 09:38
--- NOTE | 2017-02-25 09:55 | PDOC ---
SUBJECTIVE Subjective Reports pain improved today. Reports slightly less numbness in hands and feet but still present. Describes all numbness as distal to elbows and knees largely involving just hands and feet. OBJECTIVE Objective MRI cervical spine with stable findings compared to 2013, no high grade stenoses Vital Signs Vital Signs Date Time Temp Pulse Resp B/P (MAP) Pulse Ox O2 Delivery O2 Flow Rate FiO2 02/25/17 07:45 Room Air 02/25/17 07:00 97.5 69 20 116/69 (85) 97 Room Air 97.5 02/25/17 03:02 97.5 76 18 103/74 (84) 96 Room Air 97.5 02/24/17 23:06 97.7 67 18 112/70 (84) 96 Room Air 97.7 02/24/17 19:08 97.9 74 18 124/65 (84) 94 Room Air 97.9 02/24/17 17:41 94 Room Air 02/24/17 14:57 97.9 83 16 127/79 (95) 94 Room Air 97.9 02/24/17 11:51 Room Air 02/24/17 11:21 Room Air 02/24/17 11:10 97.9 78 16 118/76 (90) 94 Room Air 97.9 02/24/17 10:51 Room Air 02/24/17 10:51 Room Air I & O Intake and Output 02/25/17 07:00 Intake Total 1300 ml Balance 1300 ml Intake Oral 1300 ml # Voids 5 PHYSICAL EXAM Physical Exam AAOx4, NAD, CARDENAS with variable effort and giveaway but briefly produces 5/5, reports altered sensation hands and feet, toes downgoing ASSESSMENT/PLAN Assessment/Plan 61F with neck pain, bilateral hand a foot numbness, cervical spondylosis Imaging findings and therapeutic options were discussed extensively with the patient. Imaging findings stable compared to three years prior without any acute change or discrete high grade stenotic lesion to succinctly attribute to complaints. Reports significant improvement of pain with neck injection. To start medrol dose pack. To continue therapies as able/rehab. Presently appears to be improving. Monitor for changes/decline - reimage if decline. Problems: COMMENT Lab Laboratory Tests Test 02/24/17 11:25 02/24/17 17:06 02/24/17 20:42 02/25/17 05:20 Glucose (Fingerstick) 136 mg/dL (70-99) 159 mg/dL (70-99) 178 mg/dL (70-99) White Blood Count 9.0 x10^3/uL (4.0-11.0) Red Blood Count 4.03 x10^6/uL (3.50-5.40) Hemoglobin 11.8 g/dL (12.0-15.5) Hematocrit 35.8 % (36.0-47.0) Mean Corpuscular Volume 89 fL (79-100) Mean Corpuscular Hemoglobin 29 pg (25-35) Mean Corpuscular Hemoglobin Concent 33 g/dL (31-37) Red Cell Distribution Width 14.0 % (11.5-14.5) Platelet Count 303 x10^3/uL (140-400) Neutrophils (%) (Auto) 64 % (31-73) Lymphocytes (%) (Auto) 28 % (24-48) Monocytes (%) (Auto) 5 % (0-9) Eosinophils (%) (Auto) 2 % (0-3) Basophils (%) (Auto) 1 % (0-3) Neutrophils # (Auto) 5.7 x10^3uL (1.8-7.7) Lymphocytes # (Auto) 2.5 x10^3/uL (1.0-4.8) Monocytes # (Auto) 0.5 x10^3/uL (0.0-1.1) Eosinophils # (Auto) 0.2 x10^3/uL (0.0-0.7) Basophils # (Auto) 0.1 x10^3/uL (0.0-0.2) Erythrocyte Sedimentation Rate 26 (0-25) Sodium Level 138 mmol/L (136-145) Potassium Level 4.2 mmol/L (3.5-5.1) Chloride Level 101 mmol/L (98-107) Carbon Dioxide Level 29 mmol/L (21-32) Anion Gap 8 (6-14) Blood Urea Nitrogen 16 mg/dL (7-20) Creatinine 0.7 mg/dL (0.6-1.0) Estimated GFR (Cockcroft-Gault) 85.1 Glucose Level 136 mg/dL (70-99) Calcium Level 8.6 mg/dL (8.5-10.1) Test 02/25/17 07:40 Glucose (Fingerstick) 133 mg/dL (70-99) MAURO MCCULLOUGH MD February 25, 2017 09:55
[2017-02-25 11:00] VITALS: BP 123/82
--- NOTE | 2017-02-25 11:39 | PDOC ---
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 Oriented to time, place and person. PERRL. EOMI. CN: no focal findings. Muscle tone: normal. Muscle strength: 5-/5 DTR: 2+, except 3+ at knees Plantar reflex: flexor Gait: not examined in bed. Sensory exam: C5 level. No cerebellar signs elicited. Review of Relevant I have reviewed the following items cailin (where applicable) has been applied. Labs Laboratory Tests Test 02/23/17 16:10 02/23/17 19:25 02/23/17 21:55 02/24/17 03:36 White Blood Count 10.0 x10^3/uL (4.0-11.0) 9.8 x10^3/uL (4.0-11.0) Red Blood Count 4.14 x10^6/uL (3.50-5.40) 4.09 x10^6/uL (3.50-5.40) Hemoglobin 12.1 g/dL (12.0-15.5) 12.0 g/dL (12.0-15.5) Hematocrit 37.0 % (36.0-47.0) 36.2 % (36.0-47.0) Mean Corpuscular Volume 89 fL (79-100) 88 fL (79-100) Mean Corpuscular Hemoglobin 29 pg (25-35) 29 pg (25-35) Mean Corpuscular Hemoglobin Concent 33 g/dL (31-37) 33 g/dL (31-37) Red Cell Distribution Width 13.9 % (11.5-14.5) 14.0 % (11.5-14.5) Platelet Count 315 x10^3/uL (140-400) 308 x10^3/uL (140-400) Neutrophils (%) (Auto) 57 % (31-73) 50 % (31-73) Lymphocytes (%) (Auto) 32 % (24-48) 40 % (24-48) Monocytes (%) (Auto) 6 % (0-9) 6 % (0-9) Eosinophils (%) (Auto) 4 % (0-3) 3 % (0-3) Basophils (%) (Auto) 1 % (0-3) 1 % (0-3) Neutrophils # (Auto) 5.7 x10^3uL (1.8-7.7) 4.9 x10^3uL (1.8-7.7) Lymphocytes # (Auto) 3.2 x10^3/uL (1.0-4.8) 3.9 x10^3/uL (1.0-4.8) Monocytes # (Auto) 0.6 x10^3/uL (0.0-1.1) 0.6 x10^3/uL (0.0-1.1) Eosinophils # (Auto) 0.4 x10^3/uL (0.0-0.7) 0.3 x10^3/uL (0.0-0.7) Basophils # (Auto) 0.1 x10^3/uL (0.0-0.2) 0.1 x10^3/uL (0.0-0.2) Prothrombin Time 12.3 SEC (11.7-14.0) Prothromb Time International Ratio 1.0 (0.8-1.1) Activated Partial Thromboplast Time 27 SEC (24-38) Sodium Level 139 mmol/L (136-145) 139 mmol/L (136-145) Potassium Level 4.1 mmol/L (3.5-5.1) 3.9 mmol/L (3.5-5.1) Chloride Level 101 mmol/L (98-107) 101 mmol/L (98-107) Carbon Dioxide Level 31 mmol/L (21-32) 30 mmol/L (21-32) Anion Gap 7 (6-14) 8 (6-14) Blood Urea Nitrogen 19 mg/dL (7-20) 16 mg/dL (7-20) Creatinine 0.8 mg/dL (0.6-1.0) 0.7 mg/dL (0.6-1.0) Estimated GFR (Cockcroft-Gault) 72.9 85.1 BUN/Creatinine Ratio 24 (6-20) Glucose Level 122 mg/dL (70-99) 126 mg/dL (70-99) Calcium Level 9.4 mg/dL (8.5-10.1) 8.6 mg/dL (8.5-10.1) Total Bilirubin 0.2 mg/dL (0.2-1.0) Aspartate Amino Transf (AST/SGOT) 18 U/L (15-37) Alanine Aminotransferase (ALT/SGPT) 21 U/L (14-59) Alkaline Phosphatase 48 U/L (46-116) Troponin I Quantitative < 0.017 ng/mL (0.000-0.055) Total Protein 7.0 g/dL (6.4-8.2) Albumin 3.3 g/dL (3.4-5.0) Albumin/Globulin Ratio 0.9 (1.0-1.7) Thyroid Stimulating Hormone (TSH) 3.413 uIU/mL (0.358-3.74) Urine Collection Type Unknown Urine Color Yellow Urine Clarity Cloudy Urine pH 7.0 Urine Specific [place] 1.015 Urine Protein Negative mg/dL (NEG-TRACE) Urine Glucose (UA) Negative mg/dL (NEG) Urine Ketones (Stick) Trace mg/dL (NEG) Urine Blood Negative (NEG) Urine Nitrite Negative (NEG) Urine Bilirubin Negative (NEG) Urine Urobilinogen Dipstick 1.0 mg/dL (0.2 mg/dL) Urine Leukocyte Esterase Small (NEG) Urine RBC 0 /HPF (0-2) Urine WBC 1-4 /HPF (0-4) Urine Squamous Epithelial Cells Few /LPF Urine Amorphous Sediment Present /HPF Urine Bacteria Few /HPF (0-FEW) Glucose (Fingerstick) 107 mg/dL (70-99) Test 02/24/17 07:26 02/24/17 11:25 02/24/17 17:06 02/24/17 20:42 Glucose (Fingerstick) 119 mg/dL (70-99) 136 mg/dL (70-99) 159 mg/dL (70-99) 178 mg/dL (70-99) Test 02/25/17 05:20 02/25/17 07:40 White Blood Count 9.0 x10^3/uL (4.0-11.0) Red Blood Count 4.03 x10^6/uL (3.50-5.40) Hemoglobin 11.8 g/dL (12.0-15.5) Hematocrit 35.8 % (36.0-47.0) Mean Corpuscular Volume 89 fL (79-100) Mean Corpuscular Hemoglobin 29 pg (25-35) Mean Corpuscular Hemoglobin Concent 33 g/dL (31-37) Red Cell Distribution Width 14.0 % (11.5-14.5) Platelet Count 303 x10^3/uL (140-400) Neutrophils (%) (Auto) 64 % (31-73) Lymphocytes (%) (Auto) 28 % (24-48) Monocytes (%) (Auto) 5 % (0-9) Eosinophils (%) (Auto) 2 % (0-3) Basophils (%) (Auto) 1 % (0-3) Neutrophils # (Auto) 5.7 x10^3uL (1.8-7.7) Lymphocytes # (Auto) 2.5 x10^3/uL (1.0-4.8) Monocytes # (Auto) 0.5 x10^3/uL (0.0-1.1) Eosinophils # (Auto) 0.2 x10^3/uL (0.0-0.7) Basophils # (Auto) 0.1 x10^3/uL (0.0-0.2) Erythrocyte Sedimentation Rate 26 (0-25) Sodium Level 138 mmol/L (136-145) Potassium Level 4.2 mmol/L (3.5-5.1) Chloride Level 101 mmol/L (98-107) Carbon Dioxide Level 29 mmol/L (21-32) Anion Gap 8 (6-14) Blood Urea Nitrogen 16 mg/dL (7-20) Creatinine 0.7 mg/dL (0.6-1.0) Estimated GFR (Cockcroft-Gault) 85.1 Glucose Level 136 mg/dL (70-99) Calcium Level 8.6 mg/dL (8.5-10.1) Glucose (Fingerstick) 133 mg/dL (70-99) Laboratory Tests Test 02/24/17 17:06 02/24/17 20:42 02/25/17 05:20 02/25/17 07:40 Glucose (Fingerstick) 159 mg/dL (70-99) 178 mg/dL (70-99) 133 mg/dL (70-99) White Blood Count 9.0 x10^3/uL (4.0-11.0) Red Blood Count 4.03 x10^6/uL (3.50-5.40) Hemoglobin 11.8 g/dL (12.0-15.5) Hematocrit 35.8 % (36.0-47.0) Mean Corpuscular Volume 89 fL (79-100) Mean Corpuscular Hemoglobin 29 pg (25-35) Mean Corpuscular Hemoglobin Concent 33 g/dL (31-37) Red Cell Distribution Width 14.0 % (11.5-14.5) Platelet Count 303 x10^3/uL (140-400) Neutrophils (%) (Auto) 64 % (31-73) Lymphocytes (%) (Auto) 28 % (24-48) Monocytes (%) (Auto) 5 % (0-9) Eosinophils (%) (Auto) 2 % (0-3) Basophils (%) (Auto) 1 % (0-3) Neutrophils # (Auto) 5.7 x10^3uL (1.8-7.7) Lymphocytes # (Auto) 2.5 x10^3/uL (1.0-4.8) Monocytes # (Auto) 0.5 x10^3/uL (0.0-1.1) Eosinophils # (Auto) 0.2 x10^3/uL (0.0-0.7) Basophils # (Auto) 0.1 x10^3/uL (0.0-0.2) Erythrocyte Sedimentation Rate 26 (0-25) Sodium Level 138 mmol/L (136-145) Potassium Level 4.2 mmol/L (3.5-5.1) Chloride Level 101 mmol/L (98-107) Carbon Dioxide Level 29 mmol/L (21-32) Anion Gap 8 (6-14) Blood Urea Nitrogen 16 mg/dL (7-20) Creatinine 0.7 mg/dL (0.6-1.0) Estimated GFR (Cockcroft-Gault) 85.1 Glucose Level 136 mg/dL (70-99) Calcium Level 8.6 mg/dL (8.5-10.1) Medications Current Medications Fentanyl Citrate (Fentanyl 2ml Vial) 50 mcg PRN Q15MIN PRN IV PAIN GREATER THAN 3/10 Last administered on 02/23/17 16:31; Start 02/23/17 at 16:00; Stop 02/24 at 15:59; Status DC Ondansetron HCl (Zofran) 4 mg PRN Q8HRS PRN IV NAUSEA/VOMITING; Start 02/23/17 at 19:15; Stop 02/24/17 at 19:14; Status DC Morphine Sulfate 4 mg PRN Q2HR PRN IV PAIN Last administered on 02/24/17 10:51 ; Start 02/23/17 at 19:15; Stop 02/24/17 at 19:14; Status DC Acetaminophen (Tylenol) 650 mg PRN Q4HRS PRN PO FEVER; Start 02/23/17 at 19:15; Stop 02/24/17 at 19:14; Status DC Aspirin (Ecotrin) 81 mg DAILY PO Last administered on 02/25/17 09:00; Start 02/24/17 at 09:00 Baclofen (Lioresal) 10 mg TID PO Last administered on 02/25/17 09:01; Start 02/24/17 at 09:00 Calcium Polycarbophil (Fibercon) 625 mg DAILY PO Last administered on 02/25/17 09:00; Start 02/24/17 at 09:00 Diphenhydramine HCl (Benadryl) 50 mg HS PO Last administered on 02/24/17 21:25 ; Start 02/24/17 at 21:00 Docusate Sodium (Colace) 100 mg HS PO Last administered on 02/24/17 21:25; Start 02/24/17 at 21:00 Ergocalciferol (Vitamin D2) 50,000 unit Fr PO Last administered on 02/24/17 09: 39; Start 02/24/17 at 09:00 Estrogens Conjugated (Premarin) 0.3 jaleesa MoWeFr VG Last administered on 00:02; Start 02/24/17 at 21:00 Acetaminophen/ Hydrocodone Bitart (Lortab 7.5/325) 1 tab PRN Q6HRS PRN PO PAIN Last administered on 02/24/17 10:51; Start 02/24/17 at 09:15 Ketoconazole (Nizoral 2% Topical) 15 jaleesa BID TP Last administered on 02/25/17 00:02; Start 02/24/17 at 09:15 Metformin HCl (Glucophage) 1,000 mg BIDWMEALS PO Last administered on 02/25/17 09:00; Start 02/24/17 at 09:00 Oxybutynin Chloride (Ditropan) 5 mg HS PO Last administered on 02/24/17 21:25; Start 02/24/17 at 21:00 Simvastatin (Zocor) 40 mg HS PO Last administered on 02/24/17 21:25; Start 02/24 at 21:00 Escitalopram Oxalate (Lexapro) 20 mg QHS PO Last administered on 02/25/17 09:01 ; Start 02/25/17 at 09:00 Gabapentin (Neurontin) 1,200 mg BID PO Last administered on 02/25/17 09:00; Start 02/24/17 at 09:15 Fish Oil (Fish Oil) 1,000 mg BID PO Last administered on 02/25/17 09:01; Start 02/24/17 at 09:30 Acetaminophen (Tylenol) 650 mg PRN Q6HRS PRN PO FEVER; Start 02/24/17 at 09:15 Ondansetron HCl (Zofran) 4 mg PRN Q6HRS PRN IV NAUSEA/VOMITING; Start 02/24/17 at 09:15 Insulin Aspart (Novolog) 0-9 UNITS TIDWMEALS SQ ; Start 02/24/17 at 12:00 Dextrose (Dextrose 50%-Water Syringe) 12.5 gm PRN Q15MIN PRN IV SEE COMMENTS; Start 02/24/17 at 09:15 Enoxaparin Sodium (Lovenox 40mg Syringe) 40 mg Q24H SQ Last administered on 02/24 13:52; Start 02/24/17 at 12:00 Fentanyl (Duragesic 25mcg/ Hr Patch) 1 patch Q72H TD Last administered on 17:41; Start 02/24/17 at 17:00 Pantoprazole Sodium (Protonix) 40 mg DAILYAC PO Last administered on 02/25/17 09:00; Start 02/25/17 at 07:30 Methylprednisolone Acetate (DEPO-Medrol 40MG VIAL) 40 mg 1X ONCE IM ; Start 02/24/17 at 17:45; Stop 02/24/17 at 17:57; Status DC Bupivacaine HCl (Sensorcaine-Mpf 0.25%) 10 ml 1X ONCE IJ ; Start 02/24/17 at 17: 45; Stop 02/24/17 at 17:57; Status DC Lidocaine (Lidoderm) 2 patch DAILY TD Last administered on 02/25/17 09:04; Start 02/24/17 at 18:00 Methylprednisolone (Medrol) 8 mg BID PO ; Start 02/24/17 at 09:00; Stop 02/24/17 at 19:52; Status DC Methylprednisolone (Medrol) 4 mg BIDPCLD PO ; Start 02/24/17 at 12:30; Stop at 17:57; Status DC Methylprednisolone (Medrol) 4 mg TIDPC PO ; Start 02/25/17 at 08:30; Stop at 08:30; Status DC Methylprednisolone (Medrol) 8 mg QHS PO ; Start 02/25/17 at 21:00; Stop 02/25/17 at 21:00; Status DC Methylprednisolone (Medrol) 4 mg QIDAFTMEAL PO ; Start 02/26/17 at 09:00; Stop at 09:00; Status DC Methylprednisolone (Medrol) 4 mg TID PO ; Start 02/27/17 at 09:00; Stop 02/27/17 at 09:00; Status DC Methylprednisolone (Medrol) 4 mg BID PO ; Start 02/28/17 at 09:00; Stop 02/28/17 at 09:00; Status DC Methylprednisolone (Medrol) 4 mg DAILY PO ; Start 03/01/17 at 09:00; Stop at 09:00; Status DC Pantoprazole Sodium (Protonix Vial) 40 mg 1X ONCE IVP Last administered on 02/24 21:23; Start 02/24/17 at 20:00; Stop 02/24/17 at 20:01; Status DC Methylprednisolone (Medrol) 8 mg BID PO Last administered on 02/25/17 09:00; Start 02/25/17 at 09:00; Stop 02/25/17 at 21:01 Methylprednisolone (Medrol) 4 mg BIDPCLD PO ; Start 02/25/17 at 12:30; Stop at 17:31 Methylprednisolone (Medrol) 4 mg TIDPC PO ; Start 02/26/17 at 08:30; Stop at 17:31 Methylprednisolone (Medrol) 8 mg QHS PO ; Start 02/26/17 at 21:00; Stop 02/26/17 at 21:01 Methylprednisolone (Medrol) 4 mg QIDAFTMEAL PO ; Start 02/27/17 at 09:00; Stop at 21:01 Methylprednisolone (Medrol) 4 mg TID PO ; Start 02/28/17 at 09:00; Stop 02/28/17 at 21:01 Methylprednisolone (Medrol) 4 mg BID PO ; Start 03/01/17 at 09:00; Stop at 21:01 Methylprednisolone (Medrol) 4 mg DAILY PO ; Start 03/02/17 at 09:00; Stop at 09:01 Active Scripts Active Reported Vitamin D2 (Ergocalciferol (Vitamin D2)) 50,000 Unit Capsule 50,000 Unit PO WEEKLY Fibercon (Calcium Polycarbophil) 625 Mg Tablet 625 Mg PO DAILY Colace (Docusate Sodium) 100 Mg Capsule 100 Mg PO HS Fish Oil ([place]-3 Fatty Acids) 500 Mg Capsule.dr 1,200 Mg PO BID Ketoconazole 120 Ml Shampoo 120 Ml TP 3X/WEEK Ketoconazole 15 Gm Cream..g. 15 Gm TP BID Oxybutynin Chloride 5 Mg Tablet 5 Mg PO HS Hydrocodone-Apap 7.5-325 (Hydrocodone Bit/Acetaminophen) 1 Each Tablet 1 Tab PO PRN Q4-6HRS PRN Premarin (Estrogens, Conjugated) 30 Gm Cream.appl 0.3 Jaleesa VG 3X/WEEK Escitalopram Oxalate 20 Mg Tablet 20 Mg PO HS Baclofen 10 Mg Tablet 10 Mg PO TID Simvastatin 40 Mg Tablet 40 Mg PO HS Metformin Hcl 1,000 Mg Tablet 1,000 Mg PO BIDWMEALS Gabapentin 800 Mg Tablet 1,200 Mg PO BID Benadryl (Diphenhydramine Hcl) 25 Mg Capsule 50 Mg PO HS Aspir 81 (Aspirin) 81 Mg Tablet.dr 81 Mg PO Estarylla (Norgestimate-Ethinyl Estradiol) 1 Each Tablet 1 Each PO Claritin (Loratadine) 10 Mg Capsule 10 Mg PO Vitals/I & O Vital Sign - Last 24 Hours 02/24/17 02/24/17 02/24/17 02/24/17 11:51 14:57 17:41 19:08 Temp 97.9 97.9 97.9 97.9 Pulse 83 74 Resp 16 18 B/P (MAP) 127/79 (95) 124/65 (84) Pulse Ox 94 94 94 O2 Delivery Room Air Room Air Room Air Room Air 02/24/17 02/25/17 02/25/17 02/25/17 23:06 03:02 07:00 07:45 Temp 97.7 97.5 97.5 97.7 97.5 97.5 Pulse 67 76 69 Resp 18 18 20 B/P (MAP) 112/70 (84) 103/74 (84) 116/69 (85) Pulse Ox 96 96 97 O2 Delivery Room Air Room Air Room Air Room Air Intake and Output 02/24/17 02/24/17 02/25/17 14:59 22:59 06:59 Intake Total 500 ml 800 ml Balance 500 ml 800 ml Images MRI brain: FINDINGS The ventricles and sulci are within normal limits for age. A few scattered FLAIR hyperintensities in the supratentorial white matter are nonspecific but most suggestive of minimal small vessel ischemic disease. There is no acute intracranial hemorrhage or extra-axial fluid collection. There is no mass effect or midline shift. There is no restricted diffusion to suggest an acute infarct. Sagittal midline structures are unremarkable. Pituitary and suprasellar region are unremarkable. Intracranial flow voids are preserved. There is ethmoid and maxillary mucosal thickening. IMPRESSION No acute intracranial findings. Brain parenchymal volume loss and minimal probable small-vessel ischemic disease. MRI lumbar looks nearly normal to me, radiology interpretation pending CHERI PARDO MD February 25, 2017 11:39
--- NOTE | 2017-02-25 12:07 | RAD ---
Indication pain. The lumbar spine was examined. Sagittal T1 and T2 images were obtained as well as a sagittal STIR sequence. Axial T1 and T2 images were also obtained. Note is made of a previous examination October 26, 2015 referencing mild degenerative changes at L4-5. Vertebral height alignment and disc spaces appear normal. There are no significant degenerative changes involving the discs. Marrow signal appears normal. L1-2, L2-3 and L3-4 appear unremarkable. There is no spinal stenosis or significant neural foraminal narrowing at any of these levels. At L4-5 there is very mild disc bulging and slight lateral recess narrowing of the canal. Very mild neural foraminal encroachment is seen.. L5-S1 appears unremarkable. The conus appears unremarkable. IMPRESSION: Slight canal narrowing at L4-5 with associated minimal neural foraminal encroachment narrowing similar to the previous exam.
--- NOTE | 2017-02-25 12:56 | PDOC ---
PROGRESS NOTES Chief Complaint Chief Complaint neck pain acute neck injury, cervical myelopathy . gl ext weakness, leg weakness h/o cervical fusion sx hld DM2 peripheral neuropathy History of Present Illness History of Present Illness fentanyl patch supportive care needs assistance, NS, Neuro, physiatry following feels constipated, add colace, miralax, MOM Vitals Vitals Vital Signs Date Time Temp Pulse Resp B/P (MAP) Pulse Ox O2 Delivery O2 Flow Rate FiO2 02/25/17 11:00 98.1 79 20 123/82 (96) 93 Room Air 98.1 Physical Exam General: Alert, Oriented X3, Cooperative, mild distress (pain) Heart: Regular rate, No murmurs Lungs: Crackles Abdomen: No tenderness Extremities: No clubbing, Normal pulses Skin: No rashes Labs LABS Laboratory Tests Test 02/24/17 17:06 02/24/17 20:42 02/25/17 05:20 02/25/17 07:40 Glucose (Fingerstick) 159 mg/dL (70-99) 178 mg/dL (70-99) 133 mg/dL (70-99) White Blood Count 9.0 x10^3/uL (4.0-11.0) Red Blood Count 4.03 x10^6/uL (3.50-5.40) Hemoglobin 11.8 g/dL (12.0-15.5) Hematocrit 35.8 % (36.0-47.0) Mean Corpuscular Volume 89 fL (79-100) Mean Corpuscular Hemoglobin 29 pg (25-35) Mean Corpuscular Hemoglobin Concent 33 g/dL (31-37) Red Cell Distribution Width 14.0 % (11.5-14.5) Platelet Count 303 x10^3/uL (140-400) Neutrophils (%) (Auto) 64 % (31-73) Lymphocytes (%) (Auto) 28 % (24-48) Monocytes (%) (Auto) 5 % (0-9) Eosinophils (%) (Auto) 2 % (0-3) Basophils (%) (Auto) 1 % (0-3) Neutrophils # (Auto) 5.7 x10^3uL (1.8-7.7) Lymphocytes # (Auto) 2.5 x10^3/uL (1.0-4.8) Monocytes # (Auto) 0.5 x10^3/uL (0.0-1.1) Eosinophils # (Auto) 0.2 x10^3/uL (0.0-0.7) Basophils # (Auto) 0.1 x10^3/uL (0.0-0.2) Erythrocyte Sedimentation Rate 26 (0-25) Sodium Level 138 mmol/L (136-145) Potassium Level 4.2 mmol/L (3.5-5.1) Chloride Level 101 mmol/L (98-107) Carbon Dioxide Level 29 mmol/L (21-32) Anion Gap 8 (6-14) Blood Urea Nitrogen 16 mg/dL (7-20) Creatinine 0.7 mg/dL (0.6-1.0) Estimated GFR (Cockcroft-Gault) 85.1 Glucose Level 136 mg/dL (70-99) Calcium Level 8.6 mg/dL (8.5-10.1) Test 02/25/17 11:46 Glucose (Fingerstick) 125 mg/dL (70-99) Review of Systems Review of Systems weakness, needs help with ADLs Assessment and Plan Assessmemt and Plan Problems Medical Problems: (1) Generalized weakness Status: Acute (2) Neural foraminal stenosis of cervical spine Status: Acute (3) Paresthesias Status: Acute (4) Weakness Status: Acute Problems: Comment Review of Relevant I have reviewed the following items cailin (where applicable) has been applied. Labs Laboratory Tests Test 02/23/17 16:10 02/23/17 19:25 02/23/17 21:55 02/24/17 03:36 White Blood Count 10.0 x10^3/uL (4.0-11.0) 9.8 x10^3/uL (4.0-11.0) Red Blood Count 4.14 x10^6/uL (3.50-5.40) 4.09 x10^6/uL (3.50-5.40) Hemoglobin 12.1 g/dL (12.0-15.5) 12.0 g/dL (12.0-15.5) Hematocrit 37.0 % (36.0-47.0) 36.2 % (36.0-47.0) Mean Corpuscular Volume 89 fL (79-100) 88 fL (79-100) Mean Corpuscular Hemoglobin 29 pg (25-35) 29 pg (25-35) Mean Corpuscular Hemoglobin Concent 33 g/dL (31-37) 33 g/dL (31-37) Red Cell Distribution Width 13.9 % (11.5-14.5) 14.0 % (11.5-14.5) Platelet Count 315 x10^3/uL (140-400) 308 x10^3/uL (140-400) Neutrophils (%) (Auto) 57 % (31-73) 50 % (31-73) Lymphocytes (%) (Auto) 32 % (24-48) 40 % (24-48) Monocytes (%) (Auto) 6 % (0-9) 6 % (0-9) Eosinophils (%) (Auto) 4 % (0-3) 3 % (0-3) Basophils (%) (Auto) 1 % (0-3) 1 % (0-3) Neutrophils # (Auto) 5.7 x10^3uL (1.8-7.7) 4.9 x10^3uL (1.8-7.7) Lymphocytes # (Auto) 3.2 x10^3/uL (1.0-4.8) 3.9 x10^3/uL (1.0-4.8) Monocytes # (Auto) 0.6 x10^3/uL (0.0-1.1) 0.6 x10^3/uL (0.0-1.1) Eosinophils # (Auto) 0.4 x10^3/uL (0.0-0.7) 0.3 x10^3/uL (0.0-0.7) Basophils # (Auto) 0.1 x10^3/uL (0.0-0.2) 0.1 x10^3/uL (0.0-0.2) Prothrombin Time 12.3 SEC (11.7-14.0) Prothromb Time International Ratio 1.0 (0.8-1.1) Activated Partial Thromboplast Time 27 SEC (24-38) Sodium Level 139 mmol/L (136-145) 139 mmol/L (136-145) Potassium Level 4.1 mmol/L (3.5-5.1) 3.9 mmol/L (3.5-5.1) Chloride Level 101 mmol/L (98-107) 101 mmol/L (98-107) Carbon Dioxide Level 31 mmol/L (21-32) 30 mmol/L (21-32) Anion Gap 7 (6-14) 8 (6-14) Blood Urea Nitrogen 19 mg/dL (7-20) 16 mg/dL (7-20) Creatinine 0.8 mg/dL (0.6-1.0) 0.7 mg/dL (0.6-1.0) Estimated GFR (Cockcroft-Gault) 72.9 85.1 BUN/Creatinine Ratio 24 (6-20) Glucose Level 122 mg/dL (70-99) 126 mg/dL (70-99) Calcium Level 9.4 mg/dL (8.5-10.1) 8.6 mg/dL (8.5-10.1) Total Bilirubin 0.2 mg/dL (0.2-1.0) Aspartate Amino Transf (AST/SGOT) 18 U/L (15-37) Alanine Aminotransferase (ALT/SGPT) 21 U/L (14-59) Alkaline Phosphatase 48 U/L (46-116) Troponin I Quantitative < 0.017 ng/mL (0.000-0.055) Total Protein 7.0 g/dL (6.4-8.2) Albumin 3.3 g/dL (3.4-5.0) Albumin/Globulin Ratio 0.9 (1.0-1.7) Thyroid Stimulating Hormone (TSH) 3.413 uIU/mL (0.358-3.74) Urine Collection Type Unknown Urine Color Yellow Urine Clarity Cloudy Urine pH 7.0 Urine Specific [place] 1.015 Urine Protein Negative mg/dL (NEG-TRACE) Urine Glucose (UA) Negative mg/dL (NEG) Urine Ketones (Stick) Trace mg/dL (NEG) Urine Blood Negative (NEG) Urine Nitrite Negative (NEG) Urine Bilirubin Negative (NEG) Urine Urobilinogen Dipstick 1.0 mg/dL (0.2 mg/dL) Urine Leukocyte Esterase Small (NEG) Urine RBC 0 /HPF (0-2) Urine WBC 1-4 /HPF (0-4) Urine Squamous Epithelial Cells Few /LPF Urine Amorphous Sediment Present /HPF Urine Bacteria Few /HPF (0-FEW) Glucose (Fingerstick) 107 mg/dL (70-99) Test 02/24/17 07:26 02/24/17 11:25 02/24/17 17:06 02/24/17 20:42 Glucose (Fingerstick) 119 mg/dL (70-99) 136 mg/dL (70-99) 159 mg/dL (70-99) 178 mg/dL (70-99) Test 02/25/17 05:20 02/25/17 07:40 02/25/17 11:46 White Blood Count 9.0 x10^3/uL (4.0-11.0) Red Blood Count 4.03 x10^6/uL (3.50-5.40) Hemoglobin 11.8 g/dL (12.0-15.5) Hematocrit 35.8 % (36.0-47.0) Mean Corpuscular Volume 89 fL (79-100) Mean Corpuscular Hemoglobin 29 pg (25-35) Mean Corpuscular Hemoglobin Concent 33 g/dL (31-37) Red Cell Distribution Width 14.0 % (11.5-14.5) Platelet Count 303 x10^3/uL (140-400) Neutrophils (%) (Auto) 64 % (31-73) Lymphocytes (%) (Auto) 28 % (24-48) Monocytes (%) (Auto) 5 % (0-9) Eosinophils (%) (Auto) 2 % (0-3) Basophils (%) (Auto) 1 % (0-3) Neutrophils # (Auto) 5.7 x10^3uL (1.8-7.7) Lymphocytes # (Auto) 2.5 x10^3/uL (1.0-4.8) Monocytes # (Auto) 0.5 x10^3/uL (0.0-1.1) Eosinophils # (Auto) 0.2 x10^3/uL (0.0-0.7) Basophils # (Auto) 0.1 x10^3/uL (0.0-0.2) Erythrocyte Sedimentation Rate 26 (0-25) Sodium Level 138 mmol/L (136-145) Potassium Level 4.2 mmol/L (3.5-5.1) Chloride Level 101 mmol/L (98-107) Carbon Dioxide Level 29 mmol/L (21-32) Anion Gap 8 (6-14) Blood Urea Nitrogen 16 mg/dL (7-20) Creatinine 0.7 mg/dL (0.6-1.0) Estimated GFR (Cockcroft-Gault) 85.1 Glucose Level 136 mg/dL (70-99) Calcium Level 8.6 mg/dL (8.5-10.1) Glucose (Fingerstick) 133 mg/dL (70-99) 125 mg/dL (70-99) Laboratory Tests Test 02/24/17 17:06 02/24/17 20:42 02/25/17 05:20 02/25/17 07:40 Glucose (Fingerstick) 159 mg/dL (70-99) 178 mg/dL (70-99) 133 mg/dL (70-99) White Blood Count 9.0 x10^3/uL (4.0-11.0) Red Blood Count 4.03 x10^6/uL (3.50-5.40) Hemoglobin 11.8 g/dL (12.0-15.5) Hematocrit 35.8 % (36.0-47.0) Mean Corpuscular Volume 89 fL (79-100) Mean Corpuscular Hemoglobin 29 pg (25-35) Mean Corpuscular Hemoglobin Concent 33 g/dL (31-37) Red Cell Distribution Width 14.0 % (11.5-14.5) Platelet Count 303 x10^3/uL (140-400) Neutrophils (%) (Auto) 64 % (31-73) Lymphocytes (%) (Auto) 28 % (24-48) Monocytes (%) (Auto) 5 % (0-9) Eosinophils (%) (Auto) 2 % (0-3) Basophils (%) (Auto) 1 % (0-3) Neutrophils # (Auto) 5.7 x10^3uL (1.8-7.7) Lymphocytes # (Auto) 2.5 x10^3/uL (1.0-4.8) Monocytes # (Auto) 0.5 x10^3/uL (0.0-1.1) Eosinophils # (Auto) 0.2 x10^3/uL (0.0-0.7) Basophils # (Auto) 0.1 x10^3/uL (0.0-0.2) Erythrocyte Sedimentation Rate 26 (0-25) Sodium Level 138 mmol/L (136-145) Potassium Level 4.2 mmol/L (3.5-5.1) Chloride Level 101 mmol/L (98-107) Carbon Dioxide Level 29 mmol/L (21-32) Anion Gap 8 (6-14) Blood Urea Nitrogen 16 mg/dL (7-20) Creatinine 0.7 mg/dL (0.6-1.0) Estimated GFR (Cockcroft-Gault) 85.1 Glucose Level 136 mg/dL (70-99) Calcium Level 8.6 mg/dL (8.5-10.1) Test 02/25/17 11:46 Glucose (Fingerstick) 125 mg/dL (70-99) Medications Current Medications Fentanyl Citrate (Fentanyl 2ml Vial) 50 mcg PRN Q15MIN PRN IV PAIN GREATER THAN 3/10 Last administered on 02/23/17 16:31; Start 02/23/17 at 16:00; Stop 02/24 at 15:59; Status DC Ondansetron HCl (Zofran) 4 mg PRN Q8HRS PRN IV NAUSEA/VOMITING; Start 02/23/17 at 19:15; Stop 02/24/17 at 19:14; Status DC Morphine Sulfate 4 mg PRN Q2HR PRN IV PAIN Last administered on 02/24/17 10:51 ; Start 02/23/17 at 19:15; Stop 02/24/17 at 19:14; Status DC Acetaminophen (Tylenol) 650 mg PRN Q4HRS PRN PO FEVER; Start 02/23/17 at 19:15; Stop 02/24/17 at 19:14; Status DC Aspirin (Ecotrin) 81 mg DAILY PO Last administered on 02/25/17 09:00; Start 02/24/17 at 09:00 Baclofen (Lioresal) 10 mg TID PO Last administered on 02/25/17 09:01; Start 02/24/17 at 09:00 Calcium Polycarbophil (Fibercon) 625 mg DAILY PO Last administered on 02/25/17 09:00; Start 02/24/17 at 09:00 Diphenhydramine HCl (Benadryl) 50 mg HS PO Last administered on 02/24/17 21:25 ; Start 02/24/17 at 21:00 Docusate Sodium (Colace) 100 mg HS PO Last administered on 02/24/17 21:25; Start 02/24/17 at 21:00 Ergocalciferol (Vitamin D2) 50,000 unit Fr PO Last administered on 02/24/17 09: 39; Start 02/24/17 at 09:00 Estrogens Conjugated (Premarin) 0.3 jaleesa MoWeFr VG Last administered on 00:02; Start 02/24/17 at 21:00 Acetaminophen/ Hydrocodone Bitart (Lortab 7.5/325) 1 tab PRN Q6HRS PRN PO PAIN Last administered on 02/24/17 10:51; Start 02/24/17 at 09:15 Ketoconazole (Nizoral 2% Topical) 15 jaleesa BID TP Last administered on 02/25/17 09:00; Start 02/24/17 at 09:15 Metformin HCl (Glucophage) 1,000 mg BIDWMEALS PO Last administered on 02/25/17 09:00; Start 02/24/17 at 09:00 Oxybutynin Chloride (Ditropan) 5 mg HS PO Last administered on 02/24/17 21:25; Start 02/24/17 at 21:00 Simvastatin (Zocor) 40 mg HS PO Last administered on 02/24/17 21:25; Start 02/24 at 21:00 Escitalopram Oxalate (Lexapro) 20 mg QHS PO Last administered on 02/25/17 09:01 ; Start 02/25/17 at 09:00 Gabapentin (Neurontin) 1,200 mg BID PO Last administered on 02/25/17 09:00; Start 02/24/17 at 09:15 Fish Oil (Fish Oil) 1,000 mg BID PO Last administered on 02/25/17 09:01; Start 02/24/17 at 09:30 Acetaminophen (Tylenol) 650 mg PRN Q6HRS PRN PO FEVER; Start 02/24/17 at 09:15 Ondansetron HCl (Zofran) 4 mg PRN Q6HRS PRN IV NAUSEA/VOMITING; Start 02/24/17 at 09:15 Insulin Aspart (Novolog) 0-9 UNITS TIDWMEALS SQ ; Start 02/24/17 at 12:00 Dextrose (Dextrose 50%-Water Syringe) 12.5 gm PRN Q15MIN PRN IV SEE COMMENTS; Start 02/24/17 at 09:15 Enoxaparin Sodium (Lovenox 40mg Syringe) 40 mg Q24H SQ Last administered on 02/24 13:52; Start 02/24/17 at 12:00 Fentanyl (Duragesic 25mcg/ Hr Patch) 1 patch Q72H TD Last administered on 17:41; Start 02/24/17 at 17:00 Pantoprazole Sodium (Protonix) 40 mg DAILYAC PO Last administered on 02/25/17 09:00; Start 02/25/17 at 07:30 Methylprednisolone Acetate (DEPO-Medrol 40MG VIAL) 40 mg 1X ONCE IM ; Start 02/24/17 at 17:45; Stop 02/24/17 at 17:57; Status DC Bupivacaine HCl (Sensorcaine-Mpf 0.25%) 10 ml 1X ONCE IJ ; Start 02/24/17 at 17: 45; Stop 02/24/17 at 17:57; Status DC Lidocaine (Lidoderm) 2 patch DAILY TD Last administered on 02/25/17 09:04; Start 02/24/17 at 18:00 Methylprednisolone (Medrol) 8 mg BID PO ; Start 02/24/17 at 09:00; Stop 02/24/17 at 19:52; Status DC Methylprednisolone (Medrol) 4 mg BIDPCLD PO ; Start 02/24/17 at 12:30; Stop at 17:57; Status DC Methylprednisolone (Medrol) 4 mg TIDPC PO ; Start 02/25/17 at 08:30; Stop at 08:30; Status DC Methylprednisolone (Medrol) 8 mg QHS PO ; Start 02/25/17 at 21:00; Stop 02/25/17 at 21:00; Status DC Methylprednisolone (Medrol) 4 mg QIDAFTMEAL PO ; Start 02/26/17 at 09:00; Stop at 09:00; Status DC Methylprednisolone (Medrol) 4 mg TID PO ; Start 02/27/17 at 09:00; Stop 02/27/17 at 09:00; Status DC Methylprednisolone (Medrol) 4 mg BID PO ; Start 02/28/17 at 09:00; Stop 02/28/17 at 09:00; Status DC Methylprednisolone (Medrol) 4 mg DAILY PO ; Start 03/01/17 at 09:00; Stop at 09:00; Status DC Pantoprazole Sodium (Protonix Vial) 40 mg 1X ONCE IVP Last administered on 02/24 21:23; Start 02/24/17 at 20:00; Stop 02/24/17 at 20:01; Status DC Methylprednisolone (Medrol) 8 mg BID PO Last administered on 02/25/17 09:00; Start 02/25/17 at 09:00; Stop 02/25/17 at 21:01 Methylprednisolone (Medrol) 4 mg BIDPCLD PO ; Start 02/25/17 at 12:30; Stop at 17:31 Methylprednisolone (Medrol) 4 mg TIDPC PO ; Start 02/26/17 at 08:30; Stop at 17:31 Methylprednisolone (Medrol) 8 mg QHS PO ; Start 02/26/17 at 21:00; Stop 02/26/17 at 21:01 Methylprednisolone (Medrol) 4 mg QIDAFTMEAL PO ; Start 02/27/17 at 09:00; Stop at 21:01 Methylprednisolone (Medrol) 4 mg TID PO ; Start 02/28/17 at 09:00; Stop 02/28/17 at 21:01 Methylprednisolone (Medrol) 4 mg BID PO ; Start 03/01/17 at 09:00; Stop at 21:01 Methylprednisolone (Medrol) 4 mg DAILY PO ; Start 03/02/17 at 09:00; Stop at 09:01 Active Scripts Active Reported Vitamin D2 (Ergocalciferol (Vitamin D2)) 50,000 Unit Capsule 50,000 Unit PO WEEKLY Fibercon (Calcium Polycarbophil) 625 Mg Tablet 625 Mg PO DAILY Colace (Docusate Sodium) 100 Mg Capsule 100 Mg PO HS Fish Oil (Burdette-3 Fatty Acids) 500 Mg Capsule.dr 1,200 Mg PO BID Ketoconazole 120 Ml Shampoo 120 Ml TP 3X/WEEK Ketoconazole 15 Gm Cream..g. 15 Gm TP BID Oxybutynin Chloride 5 Mg Tablet 5 Mg PO HS Hydrocodone-Apap 7.5-325 (Hydrocodone Bit/Acetaminophen) 1 Each Tablet 1 Tab PO PRN Q4-6HRS PRN Premarin (Estrogens, Conjugated) 30 Gm Cream.appl 0.3 Jaleesa VG 3X/WEEK Escitalopram Oxalate 20 Mg Tablet 20 Mg PO HS Baclofen 10 Mg Tablet 10 Mg PO TID Simvastatin 40 Mg Tablet 40 Mg PO HS Metformin Hcl 1,000 Mg Tablet 1,000 Mg PO BIDWMEALS Gabapentin 800 Mg Tablet 1,200 Mg PO BID Benadryl (Diphenhydramine Hcl) 25 Mg Capsule 50 Mg PO HS Aspir 81 (Aspirin) 81 Mg Tablet.dr 81 Mg PO Estarylla (Norgestimate-Ethinyl Estradiol) 1 Each Tablet 1 Each PO Claritin (Loratadine) 10 Mg Capsule 10 Mg PO Vitals/I & O Vital Sign - Last 24 Hours 02/24/17 02/24/17 02/24/17 02/24/17 14:57 17:41 19:08 23:06 Temp 97.9 97.9 97.7 97.9 97.9 97.7 Pulse 83 74 67 Resp 16 18 18 B/P (MAP) 127/79 (95) 124/65 (84) 112/70 (84) Pulse Ox 94 94 94 96 O2 Delivery Room Air Room Air Room Air Room Air 02/25/17 02/25/17 02/25/17 02/25/17 03:02 07:00 07:45 11:00 Temp 97.5 97.5 98.1 97.5 97.5 98.1 Pulse 76 69 79 Resp 18 20 20 B/P (MAP) 103/74 (84) 116/69 (85) 123/82 (96) Pulse Ox 96 97 93 O2 Delivery Room Air Room Air Room Air Room Air Intake and Output 02/24/17 02/24/17 02/25/17 14:59 22:59 06:59 Intake Total 500 ml 800 ml Balance 500 ml 800 ml VANESSA LUX MD February 25, 2017 12:56
[2017-02-25] MEDS ORDERED: MAGNESIUM HYDROXIDE 2,400 MG/30 ML ORAL.SUSP. PO PRN (13:00)
[2017-02-25] MEDS ORDERED: fentaNYL PF VIAL 100 MCG/2 ML VIAL IV PRN (13:00)
[2017-02-25] MEDS: ENOXAPARIN 40 MG/0.4 ML SYRINGE. SQ SCH (13:29)
[2017-02-25] MEDS: DOCUSATE SODIUM 100 MG CAPSULE. PO SCH ×2 (13:29→21:07)
[2017-02-25] MEDS ORDERED: POLYETHYLENE GLYCOL 3350 17 GM PACKET. PO ONE (13:30)
[2017-02-25] MEDS: HYDROcodone/APAP 7.5/325MG 1 TAB TABLET PO PRN (14:44)
[2017-02-25 15:00] VITALS: BP 126/70
[2017-02-25 19:21] VITALS: BP 118/56
[2017-02-25] MEDS: diphenhydrAMINE HCL 25 MG CAPSULE PO SCH (21:06)
[2017-02-25] MEDS: OXYBUTYNIN CHLORIDE 5 MG TABLET PO SCH (21:06)
[2017-02-25] MEDS: SIMVASTATIN 40 MG TABLET. PO SCH (21:07)
[2017-02-25 23:34] VITALS: BP 105/67
[2017-02-26] MEDS: HYDROcodone/APAP 7.5/325MG 1 TAB TABLET PO PRN (02:19)
[2017-02-26 03:21] VITALS: BP 121/63
[2017-02-26 07:00] VITALS: BP 107/60
[2017-02-26] MEDS: PANTOPRAZOLE 40 MG TABLET.DR. PO SCH (07:51)
[2017-02-26] MEDS: methylPREDNISolone 4 MG TABLET. PO SCH ×3 (07:52→17:05)
[2017-02-26] MEDS: INSULIN ASPART 300 UNITS/3 ML INSULN.PEN SQ SCH ×3 (07:54→16:58)
[2017-02-26] MEDS ORDERED: methylPREDNISolone 4 MG TABLET. PO SCH ×2 (09:00→21:00)
[2017-02-26] MEDS: POLYETHYLENE GLYCOL 3350 17 GM PACKET. PO SCH (09:06)
[2017-02-26] MEDS: BACLOFEN 10 MG TABLET. PO SCH ×3 (09:06→21:12)
[2017-02-26] MEDS: GABAPENTIN 400 MG CAPSULE. PO SCH ×2 (09:06→21:13)
[2017-02-26] MEDS: DOCUSATE SODIUM 100 MG CAPSULE. PO SCH ×2 (09:06→21:13)
[2017-02-26] MEDS: ASPIRIN ENTERIC COATED 81 MG TABLET.DR. PO SCH (09:06)
[2017-02-26] MEDS: OMEGA-3 FATTY ACIDS/FISH OIL 1,000 MG CAPSULE. PO SCH ×2 (09:06→21:13)
[2017-02-26] MEDS: CALCIUM POLYCARBOPHIL 625 MG TABLET PO SCH (09:06)
[2017-02-26] MEDS: LIDOCAINE (700MG/PATCH) PATCH. TD SCH (09:09)
[2017-02-26] MEDS: KETOCONAZOLE 2% TOPICAL CREAM 15GM TUBE. TP SCH ×2 (09:11→21:00)
[2017-02-26 11:00] VITALS: BP 128/76
[2017-02-26] MEDS: ENOXAPARIN 40 MG/0.4 ML SYRINGE. SQ SCH (12:02)
[2017-02-26 15:00] VITALS: BP 138/77
--- NOTE | 2017-02-26 15:13 | PDOC ---
PROGRESS NOTES Chief Complaint Chief Complaint neck pain acute neck injury, cervical myelopathy ext weakness, leg weakness h/o cervical fusion sx hld DM2 peripheral neuropathy History of Present Illness History of Present Illness fentanyl patch supportive care needs assistance, NS, Neuro, physiatry following feels constipated, add colace, miralax, MOM DC In AM Vitals Vitals Vital Signs Date Time Temp Pulse Resp B/P (MAP) Pulse Ox O2 Delivery O2 Flow Rate FiO2 02/26/17 15:00 98.5 83 20 138/77 (97) 93 Room Air 98.5 Physical Exam General: Alert, Oriented X3, Cooperative, No acute distress, Other (weaknes with ambulating) Heart: Regular rate, No murmurs Lungs: Crackles Abdomen: No tenderness Extremities: No clubbing, Normal pulses Skin: No rashes Labs LABS Laboratory Tests Test 02/25/17 16:55 02/25/17 20:41 02/26/17 07:27 02/26/17 11:02 Glucose (Fingerstick) 174 mg/dL (70-99) 167 mg/dL (70-99) 141 mg/dL (70-99) 156 mg/dL (70-99) Review of Systems Review of Systems no n.vd neck pain better can ambulate some Assessment and Plan Assessmemt and Plan Problems Medical Problems: (1) Generalized weakness Status: Acute (2) Neural foraminal stenosis of cervical spine Status: Acute (3) Paresthesias Status: Acute (4) Weakness Status: Acute Problems: Comment Review of Relevant I have reviewed the following items cailin (where applicable) has been applied. Labs Laboratory Tests Test 02/24/17 17:06 02/24/17 20:42 02/25/17 05:20 02/25/17 07:40 Glucose (Fingerstick) 159 mg/dL (70-99) 178 mg/dL (70-99) 133 mg/dL (70-99) White Blood Count 9.0 x10^3/uL (4.0-11.0) Red Blood Count 4.03 x10^6/uL (3.50-5.40) Hemoglobin 11.8 g/dL (12.0-15.5) Hematocrit 35.8 % (36.0-47.0) Mean Corpuscular Volume 89 fL (79-100) Mean Corpuscular Hemoglobin 29 pg (25-35) Mean Corpuscular Hemoglobin Concent 33 g/dL (31-37) Red Cell Distribution Width 14.0 % (11.5-14.5) Platelet Count 303 x10^3/uL (140-400) Neutrophils (%) (Auto) 64 % (31-73) Lymphocytes (%) (Auto) 28 % (24-48) Monocytes (%) (Auto) 5 % (0-9) Eosinophils (%) (Auto) 2 % (0-3) Basophils (%) (Auto) 1 % (0-3) Neutrophils # (Auto) 5.7 x10^3uL (1.8-7.7) Lymphocytes # (Auto) 2.5 x10^3/uL (1.0-4.8) Monocytes # (Auto) 0.5 x10^3/uL (0.0-1.1) Eosinophils # (Auto) 0.2 x10^3/uL (0.0-0.7) Basophils # (Auto) 0.1 x10^3/uL (0.0-0.2) Erythrocyte Sedimentation Rate 26 (0-25) Sodium Level 138 mmol/L (136-145) Potassium Level 4.2 mmol/L (3.5-5.1) Chloride Level 101 mmol/L (98-107) Carbon Dioxide Level 29 mmol/L (21-32) Anion Gap 8 (6-14) Blood Urea Nitrogen 16 mg/dL (7-20) Creatinine 0.7 mg/dL (0.6-1.0) Estimated GFR (Cockcroft-Gault) 85.1 Glucose Level 136 mg/dL (70-99) Calcium Level 8.6 mg/dL (8.5-10.1) Test 02/25/17 11:46 02/25/17 16:55 02/25/17 20:41 02/26/17 07:27 Glucose (Fingerstick) 125 mg/dL (70-99) 174 mg/dL (70-99) 167 mg/dL (70-99) 141 mg/dL (70-99) Test 02/26/17 11:02 Glucose (Fingerstick) 156 mg/dL (70-99) Laboratory Tests Test 02/25/17 16:55 02/25/17 20:41 02/26/17 07:27 02/26/17 11:02 Glucose (Fingerstick) 174 mg/dL (70-99) 167 mg/dL (70-99) 141 mg/dL (70-99) 156 mg/dL (70-99) Medications Current Medications Fentanyl Citrate (Fentanyl 2ml Vial) 50 mcg PRN Q15MIN PRN IV PAIN GREATER THAN 3/10 Last administered on 02/23/17 16:31; Start 02/23/17 at 16:00; Stop 02/24 at 15:59; Status DC Ondansetron HCl (Zofran) 4 mg PRN Q8HRS PRN IV NAUSEA/VOMITING; Start 02/23/17 at 19:15; Stop 02/24/17 at 19:14; Status DC Morphine Sulfate 4 mg PRN Q2HR PRN IV PAIN Last administered on 02/24/17 10:51 ; Start 02/23/17 at 19:15; Stop 02/24/17 at 19:14; Status DC Acetaminophen (Tylenol) 650 mg PRN Q4HRS PRN PO FEVER; Start 02/23/17 at 19:15; Stop 02/24/17 at 19:14; Status DC Aspirin (Ecotrin) 81 mg DAILY PO Last administered on 02/26/17 09:06; Start 02/24/17 at 09:00 Baclofen (Lioresal) 10 mg TID PO Last administered on 02/26/17 14:15; Start 02/24/17 at 09:00 Calcium Polycarbophil (Fibercon) 625 mg DAILY PO Last administered on 02/26/17 09:06; Start 02/24/17 at 09:00 Diphenhydramine HCl (Benadryl) 50 mg HS PO Last administered on 02/25/17 21:06 ; Start 02/24/17 at 21:00 Docusate Sodium (Colace) 100 mg HS PO Last administered on 02/25/17 21:07; Start 02/24/17 at 21:00 Ergocalciferol (Vitamin D2) 50,000 unit Fr PO Last administered on 02/24/17 09: 39; Start 02/24/17 at 09:00 Estrogens Conjugated (Premarin) 0.3 jaleesa MoWeFr VG Last administered on 00:02; Start 02/24/17 at 21:00 Acetaminophen/ Hydrocodone Bitart (Lortab 7.5/325) 1 tab PRN Q6HRS PRN PO PAIN Last administered on 02/26/17 02:19; Start 02/24/17 at 09:15 Ketoconazole (Nizoral 2% Topical) 15 jaleesa BID TP Last administered on 02/26/17 09:11; Start 02/24/17 at 09:15 Metformin HCl (Glucophage) 1,000 mg BIDWMEALS PO Last administered on 02/26/17 07:51; Start 02/24/17 at 09:00 Oxybutynin Chloride (Ditropan) 5 mg HS PO Last administered on 02/25/17 21:06; Start 02/24/17 at 21:00 Simvastatin (Zocor) 40 mg HS PO Last administered on 02/25/17 21:07; Start 02/24 at 21:00 Escitalopram Oxalate (Lexapro) 20 mg QHS PO Last administered on 02/25/17 21:07 ; Start 02/25/17 at 09:00 Gabapentin (Neurontin) 1,200 mg BID PO Last administered on 02/26/17 09:06; Start 02/24/17 at 09:15 Fish Oil (Fish Oil) 1,000 mg BID PO Last administered on 02/26/17 09:06; Start 02/24/17 at 09:30 Acetaminophen (Tylenol) 650 mg PRN Q6HRS PRN PO FEVER; Start 02/24/17 at 09:15 Ondansetron HCl (Zofran) 4 mg PRN Q6HRS PRN IV NAUSEA/VOMITING; Start 02/24/17 at 09:15 Insulin Aspart (Novolog) 0-9 UNITS TIDWMEALS SQ Last administered on 02/26/17 12:04; Start 02/24/17 at 12:00 Dextrose (Dextrose 50%-Water Syringe) 12.5 gm PRN Q15MIN PRN IV SEE COMMENTS; Start 02/24/17 at 09:15 Enoxaparin Sodium (Lovenox 40mg Syringe) 40 mg Q24H SQ Last administered on 02/26 12:02; Start 02/24/17 at 12:00 Fentanyl (Duragesic 25mcg/ Hr Patch) 1 patch Q72H TD Last administered on 17:41; Start 02/24/17 at 17:00 Pantoprazole Sodium (Protonix) 40 mg DAILYAC PO Last administered on 02/26/17 07:51; Start 02/25/17 at 07:30 Methylprednisolone Acetate (DEPO-Medrol 40MG VIAL) 40 mg 1X ONCE IM ; Start 02/24/17 at 17:45; Stop 02/24/17 at 17:57; Status DC Bupivacaine HCl (Sensorcaine-Mpf 0.25%) 10 ml 1X ONCE IJ ; Start 02/24/17 at 17: 45; Stop 02/24/17 at 17:57; Status DC Lidocaine (Lidoderm) 2 patch DAILY TD Last administered on 02/26/17 09:09; Start 02/24/17 at 18:00 Methylprednisolone (Medrol) 8 mg BID PO ; Start 02/24/17 at 09:00; Stop 02/24/17 at 19:52; Status DC Methylprednisolone (Medrol) 4 mg BIDPCLD PO ; Start 02/24/17 at 12:30; Stop at 17:57; Status DC Methylprednisolone (Medrol) 4 mg TIDPC PO ; Start 02/25/17 at 08:30; Stop at 08:30; Status DC Methylprednisolone (Medrol) 8 mg QHS PO ; Start 02/25/17 at 21:00; Stop 02/25/17 at 21:00; Status DC Methylprednisolone (Medrol) 4 mg QIDAFTMEAL PO ; Start 02/26/17 at 09:00; Stop at 09:00; Status DC Methylprednisolone (Medrol) 4 mg TID PO ; Start 02/27/17 at 09:00; Stop 02/27/17 at 09:00; Status DC Methylprednisolone (Medrol) 4 mg BID PO ; Start 02/28/17 at 09:00; Stop 02/28/17 at 09:00; Status DC Methylprednisolone (Medrol) 4 mg DAILY PO ; Start 03/01/17 at 09:00; Stop at 09:00; Status DC Pantoprazole Sodium (Protonix Vial) 40 mg 1X ONCE IVP Last administered on 02/24 21:23; Start 02/24/17 at 20:00; Stop 02/24/17 at 20:01; Status DC Methylprednisolone (Medrol) 8 mg BID PO Last administered on 02/25/17 21:06; Start 02/25/17 at 09:00; Stop 02/25/17 at 21:01; Status DC Methylprednisolone (Medrol) 4 mg BIDPCLD PO Last administered on 02/25/17 18:26 ; Start 02/25/17 at 12:30; Stop 02/25/17 at 17:31; Status DC Methylprednisolone (Medrol) 4 mg TIDPC PO Last administered on 02/26/17 12:02; Start 02/26/17 at 08:30; Stop 02/26/17 at 17:31 Methylprednisolone (Medrol) 8 mg QHS PO ; Start 02/26/17 at 21:00; Stop 02/26/17 at 21:01 Methylprednisolone (Medrol) 4 mg QIDAFTMEAL PO ; Start 02/27/17 at 09:00; Stop at 21:01 Methylprednisolone (Medrol) 4 mg TID PO ; Start 02/28/17 at 09:00; Stop 02/28/17 at 21:01 Methylprednisolone (Medrol) 4 mg BID PO ; Start 03/01/17 at 09:00; Stop at 21:01 Methylprednisolone (Medrol) 4 mg DAILY PO ; Start 03/02/17 at 09:00; Stop at 09:01 Fentanyl Citrate (Fentanyl 2ml Vial) 50 mcg PRN Q2HR PRN IV PAIN; Start at 13:00 Docusate Sodium (Colace) 100 mg DAILY PO Last administered on 02/26/17 09:06; Start 02/25/17 at 13:30 Polyethylene Glycol (miraLAX PACKET) 17 gm 1X ONCE PO Last administered on 02/25 13:29; Start 02/25/17 at 13:30; Stop 02/25/17 at 13:31; Status DC Polyethylene Glycol (miraLAX PACKET) 17 gm DAILY PO Last administered on 09:06; Start 02/26/17 at 09:00 Magnesium Hydroxide (Milk Of Magnesia) 2,400 mg PRN DAILY PRN PO CONSTIPATION; Start 02/25/17 at 13:00 Active Scripts Active Reported Vitamin D2 (Ergocalciferol (Vitamin D2)) 50,000 Unit Capsule 50,000 Unit PO WEEKLY Fibercon (Calcium Polycarbophil) 625 Mg Tablet 625 Mg PO DAILY Colace (Docusate Sodium) 100 Mg Capsule 100 Mg PO HS Fish Oil ([place]-3 Fatty Acids) 500 Mg Capsule. 1,200 Mg PO BID Ketoconazole 120 Ml Shampoo 120 Ml TP 3X/WEEK Ketoconazole 15 Gm Cream..g. 15 Gm TP BID Oxybutynin Chloride 5 Mg Tablet 5 Mg PO HS Hydrocodone-Apap 7.5-325 (Hydrocodone Bit/Acetaminophen) 1 Each Tablet 1 Tab PO PRN Q4-6HRS PRN Premarin (Estrogens, Conjugated) 30 Gm Cream.appl 0.3 Jaleesa VG 3X/WEEK Escitalopram Oxalate 20 Mg Tablet 20 Mg PO HS Baclofen 10 Mg Tablet 10 Mg PO TID Simvastatin 40 Mg Tablet 40 Mg PO HS Metformin Hcl 1,000 Mg Tablet 1,000 Mg PO BIDWMEALS Gabapentin 800 Mg Tablet 1,200 Mg PO BID Benadryl (Diphenhydramine Hcl) 25 Mg Capsule 50 Mg PO HS Aspir 81 (Aspirin) 81 Mg Tablet. 81 Mg PO Estarylla (Norgestimate-Ethinyl Estradiol) 1 Each Tablet 1 Each PO Claritin (Loratadine) 10 Mg Capsule 10 Mg PO Vitals/I & O Vital Sign - Last 24 Hours 02/25/17 02/25/17 02/25/17 02/26/17 15:44 19:21 23:34 03:21 Temp 98.1 98.1 98.8 98.1 98.1 98.8 Pulse 86 80 78 Resp 16 18 16 16 B/P (MAP) 118/56 (76) 105/67 (80) 121/63 (82) Pulse Ox 93 94 96 O2 Delivery Room Air Room Air Room Air Room Air 02/26/17 02/26/17 02/26/17 02/26/17 07:00 08:05 11:00 15:00 Temp 98.1 98.5 98.5 98.1 98.5 98.5 Pulse 76 80 83 Resp 20 20 20 B/P (MAP) 107/60 (76) 128/76 (93) 138/77 (97) Pulse Ox 95 93 93 O2 Delivery Room Air Room Air Room Air Room Air Intake and Output 02/25/17 02/25/17 02/26/17 15:00 23:00 07:00 Intake Total 300 ml Balance 300 ml VANESSA LUX MD February 26, 2017 15:13
--- NOTE | 2017-02-26 15:28 | PDOC ---
PROGRESS NOTES Assessment Problems Medical Problems: (1) Generalized weakness Status: Acute (2) Neural foraminal stenosis of cervical spine Status: Acute (3) Paresthesias Status: Acute (4) Weakness Status: Acute Cervical myelopathy, exacerbated by strenuous activity of caring for her now mother Intracranial symptoms, MRI negative Lumbar pain, negative MRI All symptoms are better Plan Continue current medications Discontinue Duragesic patch tomorrow Aim for discharge tomorrow Follow-up with me as needed but at least she needs to see either me or Dr. Chicas in the future Subjective Feeling much better Objective Vital Signs Date Time Temp Pulse Resp B/P (MAP) Pulse Ox O2 Delivery O2 Flow Rate FiO2 02/26/17 15:00 98.5 83 20 138/77 (97) 93 Room Air 98.5 Intake and Output 02/26/17 07:00 Intake Total 300 ml Balance 300 ml Intake Oral 300 ml # Voids 8 PHYSICAL EXAM Alert. Oriented to time, place and person. PERRL. EOMI. CN: no focal findings. Muscle tone: normal. Muscle strength: 5/5 DTR: 2+, except 3+ at knees Plantar reflex: flexor Gait: normal. Sensory exam: no longer has C5 level. No cerebellar signs elicited. Review of Relevant I have reviewed the following items cailin (where applicable) has been applied. Labs Laboratory Tests Test 02/24/17 17:06 02/24/17 20:42 02/25/17 05:20 02/25/17 07:40 Glucose (Fingerstick) 159 mg/dL (70-99) 178 mg/dL (70-99) 133 mg/dL (70-99) White Blood Count 9.0 x10^3/uL (4.0-11.0) Red Blood Count 4.03 x10^6/uL (3.50-5.40) Hemoglobin 11.8 g/dL (12.0-15.5) Hematocrit 35.8 % (36.0-47.0) Mean Corpuscular Volume 89 fL (79-100) Mean Corpuscular Hemoglobin 29 pg (25-35) Mean Corpuscular Hemoglobin Concent 33 g/dL (31-37) Red Cell Distribution Width 14.0 % (11.5-14.5) Platelet Count 303 x10^3/uL (140-400) Neutrophils (%) (Auto) 64 % (31-73) Lymphocytes (%) (Auto) 28 % (24-48) Monocytes (%) (Auto) 5 % (0-9) Eosinophils (%) (Auto) 2 % (0-3) Basophils (%) (Auto) 1 % (0-3) Neutrophils # (Auto) 5.7 x10^3uL (1.8-7.7) Lymphocytes # (Auto) 2.5 x10^3/uL (1.0-4.8) Monocytes # (Auto) 0.5 x10^3/uL (0.0-1.1) Eosinophils # (Auto) 0.2 x10^3/uL (0.0-0.7) Basophils # (Auto) 0.1 x10^3/uL (0.0-0.2) Erythrocyte Sedimentation Rate 26 (0-25) Sodium Level 138 mmol/L (136-145) Potassium Level 4.2 mmol/L (3.5-5.1) Chloride Level 101 mmol/L (98-107) Carbon Dioxide Level 29 mmol/L (21-32) Anion Gap 8 (6-14) Blood Urea Nitrogen 16 mg/dL (7-20) Creatinine 0.7 mg/dL (0.6-1.0) Estimated GFR (Cockcroft-Gault) 85.1 Glucose Level 136 mg/dL (70-99) Calcium Level 8.6 mg/dL (8.5-10.1) Test 02/25/17 11:46 02/25/17 16:55 02/25/17 20:41 02/26/17 07:27 Glucose (Fingerstick) 125 mg/dL (70-99) 174 mg/dL (70-99) 167 mg/dL (70-99) 141 mg/dL (70-99) Test 02/26/17 11:02 Glucose (Fingerstick) 156 mg/dL (70-99) Laboratory Tests Test 02/25/17 16:55 02/25/17 20:41 02/26/17 07:27 02/26/17 11:02 Glucose (Fingerstick) 174 mg/dL (70-99) 167 mg/dL (70-99) 141 mg/dL (70-99) 156 mg/dL (70-99) Medications Current Medications Fentanyl Citrate (Fentanyl 2ml Vial) 50 mcg PRN Q15MIN PRN IV PAIN GREATER THAN 3/10 Last administered on 02/23/17 16:31; Start 02/23/17 at 16:00; Stop 02/24 at 15:59; Status DC Ondansetron HCl (Zofran) 4 mg PRN Q8HRS PRN IV NAUSEA/VOMITING; Start 02/23/17 at 19:15; Stop 02/24/17 at 19:14; Status DC Morphine Sulfate 4 mg PRN Q2HR PRN IV PAIN Last administered on 02/24/17 10:51 ; Start 02/23/17 at 19:15; Stop 02/24/17 at 19:14; Status DC Acetaminophen (Tylenol) 650 mg PRN Q4HRS PRN PO FEVER; Start 02/23/17 at 19:15; Stop 02/24/17 at 19:14; Status DC Aspirin (Ecotrin) 81 mg DAILY PO Last administered on 02/26/17 09:06; Start 02/24/17 at 09:00 Baclofen (Lioresal) 10 mg TID PO Last administered on 02/26/17 14:15; Start 02/24/17 at 09:00 Calcium Polycarbophil (Fibercon) 625 mg DAILY PO Last administered on 02/26/17 09:06; Start 02/24/17 at 09:00 Diphenhydramine HCl (Benadryl) 50 mg HS PO Last administered on 02/25/17 21:06 ; Start 02/24/17 at 21:00 Docusate Sodium (Colace) 100 mg HS PO Last administered on 02/25/17 21:07; Start 02/24/17 at 21:00 Ergocalciferol (Vitamin D2) 50,000 unit Fr PO Last administered on 02/24/17 09: 39; Start 02/24/17 at 09:00 Estrogens Conjugated (Premarin) 0.3 jaleesa MoWeFr VG Last administered on 00:02; Start 02/24/17 at 21:00 Acetaminophen/ Hydrocodone Bitart (Lortab 7.5/325) 1 tab PRN Q6HRS PRN PO PAIN Last administered on 02/26/17 02:19; Start 02/24/17 at 09:15 Ketoconazole (Nizoral 2% Topical) 15 jaleesa BID TP Last administered on 02/26/17 09:11; Start 02/24/17 at 09:15 Metformin HCl (Glucophage) 1,000 mg BIDWMEALS PO Last administered on 02/26/17 07:51; Start 02/24/17 at 09:00 Oxybutynin Chloride (Ditropan) 5 mg HS PO Last administered on 02/25/17 21:06; Start 02/24/17 at 21:00 Simvastatin (Zocor) 40 mg HS PO Last administered on 02/25/17 21:07; Start 02/24 at 21:00 Escitalopram Oxalate (Lexapro) 20 mg QHS PO Last administered on 02/25/17 21:07 ; Start 02/25/17 at 09:00 Gabapentin (Neurontin) 1,200 mg BID PO Last administered on 02/26/17 09:06; Start 02/24/17 at 09:15 Fish Oil (Fish Oil) 1,000 mg BID PO Last administered on 02/26/17 09:06; Start 02/24/17 at 09:30 Acetaminophen (Tylenol) 650 mg PRN Q6HRS PRN PO FEVER; Start 02/24/17 at 09:15 Ondansetron HCl (Zofran) 4 mg PRN Q6HRS PRN IV NAUSEA/VOMITING; Start 02/24/17 at 09:15 Insulin Aspart (Novolog) 0-9 UNITS TIDWMEALS SQ Last administered on 02/26/17 12:04; Start 02/24/17 at 12:00 Dextrose (Dextrose 50%-Water Syringe) 12.5 gm PRN Q15MIN PRN IV SEE COMMENTS; Start 02/24/17 at 09:15 Enoxaparin Sodium (Lovenox 40mg Syringe) 40 mg Q24H SQ Last administered on 02/26 12:02; Start 02/24/17 at 12:00 Fentanyl (Duragesic 25mcg/ Hr Patch) 1 patch Q72H TD Last administered on 17:41; Start 02/24/17 at 17:00 Pantoprazole Sodium (Protonix) 40 mg DAILYAC PO Last administered on 02/26/17 07:51; Start 02/25/17 at 07:30 Methylprednisolone Acetate (DEPO-Medrol 40MG VIAL) 40 mg 1X ONCE IM ; Start 02/24/17 at 17:45; Stop 02/24/17 at 17:57; Status DC Bupivacaine HCl (Sensorcaine-Mpf 0.25%) 10 ml 1X ONCE IJ ; Start 02/24/17 at 17: 45; Stop 02/24/17 at 17:57; Status DC Lidocaine (Lidoderm) 2 patch DAILY TD Last administered on 02/26/17 09:09; Start 02/24/17 at 18:00 Methylprednisolone (Medrol) 8 mg BID PO ; Start 02/24/17 at 09:00; Stop 02/24/17 at 19:52; Status DC Methylprednisolone (Medrol) 4 mg BIDPCLD PO ; Start 02/24/17 at 12:30; Stop at 17:57; Status DC Methylprednisolone (Medrol) 4 mg TIDPC PO ; Start 02/25/17 at 08:30; Stop at 08:30; Status DC Methylprednisolone (Medrol) 8 mg QHS PO ; Start 02/25/17 at 21:00; Stop 02/25/17 at 21:00; Status DC Methylprednisolone (Medrol) 4 mg QIDAFTMEAL PO ; Start 02/26/17 at 09:00; Stop at 09:00; Status DC Methylprednisolone (Medrol) 4 mg TID PO ; Start 02/27/17 at 09:00; Stop 02/27/17 at 09:00; Status DC Methylprednisolone (Medrol) 4 mg BID PO ; Start 02/28/17 at 09:00; Stop 02/28/17 at 09:00; Status DC Methylprednisolone (Medrol) 4 mg DAILY PO ; Start 03/01/17 at 09:00; Stop at 09:00; Status DC Pantoprazole Sodium (Protonix Vial) 40 mg 1X ONCE IVP Last administered on 02/24 21:23; Start 02/24/17 at 20:00; Stop 02/24/17 at 20:01; Status DC Methylprednisolone (Medrol) 8 mg BID PO Last administered on 02/25/17 21:06; Start 02/25/17 at 09:00; Stop 02/25/17 at 21:01; Status DC Methylprednisolone (Medrol) 4 mg BIDPCLD PO Last administered on 02/25/17 18:26 ; Start 02/25/17 at 12:30; Stop 02/25/17 at 17:31; Status DC Methylprednisolone (Medrol) 4 mg TIDPC PO Last administered on 02/26/17 12:02; Start 02/26/17 at 08:30; Stop 02/26/17 at 17:31 Methylprednisolone (Medrol) 8 mg QHS PO ; Start 02/26/17 at 21:00; Stop 02/26/17 at 21:01 Methylprednisolone (Medrol) 4 mg QIDAFTMEAL PO ; Start 02/27/17 at 09:00; Stop at 21:01 Methylprednisolone (Medrol) 4 mg TID PO ; Start 02/28/17 at 09:00; Stop 02/28/17 at 21:01 Methylprednisolone (Medrol) 4 mg BID PO ; Start 03/01/17 at 09:00; Stop at 21:01 Methylprednisolone (Medrol) 4 mg DAILY PO ; Start 03/02/17 at 09:00; Stop at 09:01 Fentanyl Citrate (Fentanyl 2ml Vial) 50 mcg PRN Q2HR PRN IV PAIN; Start at 13:00 Docusate Sodium (Colace) 100 mg DAILY PO Last administered on 02/26/17 09:06; Start 02/25/17 at 13:30 Polyethylene Glycol (miraLAX PACKET) 17 gm 1X ONCE PO Last administered on 02/25 13:29; Start 02/25/17 at 13:30; Stop 02/25/17 at 13:31; Status DC Polyethylene Glycol (miraLAX PACKET) 17 gm DAILY PO Last administered on 09:06; Start 02/26/17 at 09:00 Magnesium Hydroxide (Milk Of Magnesia) 2,400 mg PRN DAILY PRN PO CONSTIPATION; Start 02/25/17 at 13:00 Active Scripts Active Reported Vitamin D2 (Ergocalciferol (Vitamin D2)) 50,000 Unit Capsule 50,000 Unit PO WEEKLY Fibercon (Calcium Polycarbophil) 625 Mg Tablet 625 Mg PO DAILY Colace (Docusate Sodium) 100 Mg Capsule 100 Mg PO HS Fish Oil ([place]-3 Fatty Acids) 500 Mg Capsule. 1,200 Mg PO BID Ketoconazole 120 Ml Shampoo 120 Ml TP 3X/WEEK Ketoconazole 15 Gm Cream..g. 15 Gm TP BID Oxybutynin Chloride 5 Mg Tablet 5 Mg PO HS Hydrocodone-Apap 7.5-325 (Hydrocodone Bit/Acetaminophen) 1 Each Tablet 1 Tab PO PRN Q4-6HRS PRN Premarin (Estrogens, Conjugated) 30 Gm Cream.appl 0.3 Jaleesa VG 3X/WEEK Escitalopram Oxalate 20 Mg Tablet 20 Mg PO HS Baclofen 10 Mg Tablet 10 Mg PO TID Simvastatin 40 Mg Tablet 40 Mg PO HS Metformin Hcl 1,000 Mg Tablet 1,000 Mg PO BIDWMEALS Gabapentin 800 Mg Tablet 1,200 Mg PO BID Benadryl (Diphenhydramine Hcl) 25 Mg Capsule 50 Mg PO HS Aspir 81 (Aspirin) 81 Mg Tablet.dr 81 Mg PO Estarylla (Norgestimate-Ethinyl Estradiol) 1 Each Tablet 1 Each PO Claritin (Loratadine) 10 Mg Capsule 10 Mg PO Vitals/I & O Vital Sign - Last 24 Hours 02/25/17 02/25/17 02/25/17 02/26/17 15:44 19:21 23:34 03:21 Temp 98.1 98.1 98.8 98.1 98.1 98.8 Pulse 86 80 78 Resp 16 18 16 16 B/P (MAP) 118/56 (76) 105/67 (80) 121/63 (82) Pulse Ox 93 94 96 O2 Delivery Room Air Room Air Room Air Room Air 02/26/17 02/26/17 02/26/17 02/26/17 07:00 08:05 11:00 15:00 Temp 98.1 98.5 98.5 98.1 98.5 98.5 Pulse 76 80 83 Resp 20 20 20 B/P (MAP) 107/60 (76) 128/76 (93) 138/77 (97) Pulse Ox 95 93 93 O2 Delivery Room Air Room Air Room Air Room Air Intake and Output 02/25/17 02/25/17 02/26/17 15:00 23:00 07:00 Intake Total 300 ml Balance 300 ml Images The lumbar spine was examined. Sagittal T1 and T2 images were obtained as well as a sagittal STIR sequence. Axial T1 and T2 images were also obtained. Note is made of a previous examination October 26, 2015 referencing mild degenerative changes at L4-5. Vertebral height alignment and disc spaces appear normal. There are no significant degenerative changes involving the discs. Marrow signal appears normal. L1-2, L2-3 and L3-4 appear unremarkable. There is no spinal stenosis or significant neural foraminal narrowing at any of these levels. At L4-5 there is very mild disc bulging and slight lateral recess narrowing of the canal. Very mild neural foraminal encroachment is seen.. L5-S1 appears unremarkable. The conus appears unremarkable. IMPRESSION: Slight canal narrowing at L4-5 with associated minimal neural foraminal encroachment narrowing similar to the previous exam. CHERI PARDO MD February 26, 2017 15:28
[2017-02-26 19:54] VITALS: BP 142/74
[2017-02-26] MEDS: ESCITALOPRAM 10 MG TABLET. PO SCH (21:13)
[2017-02-26] MEDS: SIMVASTATIN 40 MG TABLET. PO SCH (21:13)
[2017-02-26] MEDS: diphenhydrAMINE HCL 25 MG CAPSULE PO SCH (21:13)
[2017-02-26] MEDS: OXYBUTYNIN CHLORIDE 5 MG TABLET PO SCH (21:13)
[2017-02-26 23:22] VITALS: BP 113/61
[2017-02-27 03:15] VITALS: BP 105/56
[2017-02-27 07:00] VITALS: BP 130/94
[2017-02-27] MEDS: PANTOPRAZOLE 40 MG TABLET.DR. PO SCH (07:36)
[2017-02-27] MEDS: INSULIN ASPART 300 UNITS/3 ML INSULN.PEN SQ SCH ×2 (08:00→12:00)
[2017-02-27] MEDS: LIDOCAINE (700MG/PATCH) PATCH. TD SCH (08:21)
[2017-02-27] MEDS: GABAPENTIN 400 MG CAPSULE. PO SCH (08:23)
[2017-02-27] MEDS: methylPREDNISolone 4 MG TABLET. PO SCH ×2 (08:23→13:51)
[2017-02-27] MEDS: DOCUSATE SODIUM 100 MG CAPSULE. PO SCH (08:24)
[2017-02-27] MEDS: ASPIRIN ENTERIC COATED 81 MG TABLET.DR. PO SCH (08:25)
[2017-02-27] MEDS: BACLOFEN 10 MG TABLET. PO SCH ×2 (08:25→13:51)
[2017-02-27] MEDS: POLYETHYLENE GLYCOL 3350 17 GM PACKET. PO SCH (08:26)
[2017-02-27] MEDS: CALCIUM POLYCARBOPHIL 625 MG TABLET PO SCH (08:26)
[2017-02-27] MEDS: KETOCONAZOLE 2% TOPICAL CREAM 15GM TUBE. TP SCH (08:27)
[2017-02-27] MEDS: OMEGA-3 FATTY ACIDS/FISH OIL 1,000 MG CAPSULE. PO SCH (08:36)
[2017-02-27] MEDS ORDERED: methylPREDNISolone 4 MG TABLET. PO SCH (09:00)
--- NOTE | 2017-02-27 09:13 | PDOC ---
PROGRESS NOTES Subjective Subjective She feels better. Objective Objective Vital Signs Date Time Temp Pulse Resp B/P (MAP) Pulse Ox O2 Delivery O2 Flow Rate FiO2 02/27/17 07:00 97.9 69 18 130/94 (106) 97 Room Air 97.9 Intake and Output 02/27/17 07:00 Intake Total 300 ml Balance 300 ml Intake Oral 300 ml # Voids 6 Physical Exam Physical Exam I saw her taking care of herself and not using any assistive devices standing at bathroom sink. Assessment Assessment Problems Medical Problems: (1) Generalized weakness Status: Acute (2) Neural foraminal stenosis of cervical spine Status: Acute (3) Paresthesias Status: Acute (4) Weakness Status: Acute Plan Plan of Care I have advised her to continue her home exercises and I would like to see her for follow up prn.Home when medically stable. Comment Review of Relevant I have reviewed the following items cailin (where applicable) has been applied. Labs Laboratory Tests Test 02/25/17 11:46 02/25/17 16:55 02/25/17 20:41 02/26/17 07:27 Glucose (Fingerstick) 125 mg/dL (70-99) 174 mg/dL (70-99) 167 mg/dL (70-99) 141 mg/dL (70-99) Test 02/26/17 11:02 02/26/17 16:54 02/27/17 07:40 Glucose (Fingerstick) 156 mg/dL (70-99) 113 mg/dL (70-99) 128 mg/dL (70-99) Laboratory Tests Test 02/26/17 11:02 02/26/17 16:54 02/27/17 07:40 Glucose (Fingerstick) 156 mg/dL (70-99) 113 mg/dL (70-99) 128 mg/dL (70-99) Medications Current Medications Fentanyl Citrate (Fentanyl 2ml Vial) 50 mcg PRN Q15MIN PRN IV PAIN GREATER THAN 3/10 Last administered on 02/23/17t 16:31; Start 02/23/17 at 16:00; Stop 02/24 at 15:59; Status DC Ondansetron HCl (Zofran) 4 mg PRN Q8HRS PRN IV NAUSEA/VOMITING; Start 02/23/17 at 19:15; Stop 02/24/17 at 19:14; Status DC Morphine Sulfate 4 mg PRN Q2HR PRN IV PAIN Last administered on 02/24/17 10:51 ; Start 02/23/17 at 19:15; Stop 02/24/17 at 19:14; Status DC Acetaminophen (Tylenol) 650 mg PRN Q4HRS PRN PO FEVER; Start 02/23/17 at 19:15; Stop 02/24/17 at 19:14; Status DC Aspirin (Ecotrin) 81 mg DAILY PO Last administered on 02/27/17 08:25; Start 02/24/17 at 09:00 Baclofen (Lioresal) 10 mg TID PO Last administered on 02/27/17 08:25; Start 02/24/17 at 09:00 Calcium Polycarbophil (Fibercon) 625 mg DAILY PO Last administered on 02/26/17 09:06; Start 02/24/17 at 09:00 Diphenhydramine HCl (Benadryl) 50 mg HS PO Last administered on 02/26/17 21:13 ; Start 02/24/17 at 21:00 Docusate Sodium (Colace) 100 mg HS PO Last administered on 02/26/17 21:13; Start 02/24/17 at 21:00 Ergocalciferol (Vitamin D2) 50,000 unit Fr PO Last administered on 02/24/17 09: 39; Start 02/24/17 at 09:00 Estrogens Conjugated (Premarin) 0.3 jaleesa MoWeFr VG Last administered on 00:02; Start 02/24/17 at 21:00 Acetaminophen/ Hydrocodone Bitart (Lortab 7.5/325) 1 tab PRN Q6HRS PRN PO PAIN Last administered on 02/26/17 02:19; Start 02/24/17 at 09:15 Ketoconazole (Nizoral 2% Topical) 15 jaleesa BID TP Last administered on 02/27/17 08:27; Start 02/24/17 at 09:15 Metformin HCl (Glucophage) 1,000 mg BIDWMEALS PO Last administered on 02/27/17 08:23; Start 02/24/17 at 09:00 Oxybutynin Chloride (Ditropan) 5 mg HS PO Last administered on 02/26/17 21:13; Start 02/24/17 at 21:00 Simvastatin (Zocor) 40 mg HS PO Last administered on 02/26/17 21:13; Start 02/24 at 21:00 Escitalopram Oxalate (Lexapro) 20 mg QHS PO Last administered on 02/26/17 21:13 ; Start 02/25/17 at 09:00 Gabapentin (Neurontin) 1,200 mg BID PO Last administered on 02/27/17 08:23; Start 02/24/17 at 09:15 Fish Oil (Fish Oil) 1,000 mg BID PO Last administered on 02/27/17 08:36; Start 02/24/17 at 09:30 Acetaminophen (Tylenol) 650 mg PRN Q6HRS PRN PO FEVER; Start 02/24/17 at 09:15 Ondansetron HCl (Zofran) 4 mg PRN Q6HRS PRN IV NAUSEA/VOMITING; Start 02/24/17 at 09:15 Insulin Aspart (Novolog) 0-9 UNITS TIDWMEALS SQ Last administered on 02/26/17 12:04; Start 02/24/17 at 12:00 Dextrose (Dextrose 50%-Water Syringe) 12.5 gm PRN Q15MIN PRN IV SEE COMMENTS; Start 02/24/17 at 09:15 Enoxaparin Sodium (Lovenox 40mg Syringe) 40 mg Q24H SQ Last administered on 02/26 12:02; Start 02/24/17 at 12:00 Fentanyl (Duragesic 25mcg/ Hr Patch) 1 patch Q72H TD Last administered on 17:41; Start 02/24/17 at 17:00; Stop 02/27/17 at 08:00; Status DC Pantoprazole Sodium (Protonix) 40 mg DAILYAC PO Last administered on 02/27/17 07:36; Start 02/25/17 at 07:30 Methylprednisolone Acetate (DEPO-Medrol 40MG VIAL) 40 mg 1X ONCE IM ; Start 02/24/17 at 17:45; Stop 02/24/17 at 17:57; Status DC Bupivacaine HCl (Sensorcaine-Mpf 0.25%) 10 ml 1X ONCE IJ ; Start 02/24/17 at 17: 45; Stop 02/24/17 at 17:57; Status DC Lidocaine (Lidoderm) 2 patch DAILY TD Last administered on 02/27/17 08:21; Start 02/24/17 at 18:00 Methylprednisolone (Medrol) 8 mg BID PO ; Start 02/24/17 at 09:00; Stop 02/24/17 at 19:52; Status DC Methylprednisolone (Medrol) 4 mg BIDPCLD PO ; Start 02/24/17 at 12:30; Stop at 17:57; Status DC Methylprednisolone (Medrol) 4 mg TIDPC PO ; Start 02/25/17 at 08:30; Stop at 08:30; Status DC Methylprednisolone (Medrol) 8 mg QHS PO ; Start 02/25/17 at 21:00; Stop 02/25/17 at 21:00; Status DC Methylprednisolone (Medrol) 4 mg QIDAFTMEAL PO ; Start 02/26/17 at 09:00; Stop at 09:00; Status DC Methylprednisolone (Medrol) 4 mg TID PO ; Start 02/27/17 at 09:00; Stop 02/27/17 at 09:00; Status DC Methylprednisolone (Medrol) 4 mg BID PO ; Start 02/28/17 at 09:00; Stop 02/28/17 at 09:00; Status DC Methylprednisolone (Medrol) 4 mg DAILY PO ; Start 03/01/17 at 09:00; Stop at 09:00; Status DC Pantoprazole Sodium (Protonix Vial) 40 mg 1X ONCE IVP Last administered on 02/24 21:23; Start 02/24/17 at 20:00; Stop 02/24/17 at 20:01; Status DC Methylprednisolone (Medrol) 8 mg BID PO Last administered on 02/25/17 21:06; Start 02/25/17 at 09:00; Stop 02/25/17 at 21:01; Status DC Methylprednisolone (Medrol) 4 mg BIDPCLD PO Last administered on 02/25/17 18:26 ; Start 02/25/17 at 12:30; Stop 02/25/17 at 17:31; Status DC Methylprednisolone (Medrol) 4 mg TIDPC PO Last administered on 02/26/17 17:05; Start 02/26/17 at 08:30; Stop 02/26/17 at 17:31; Status DC Methylprednisolone (Medrol) 8 mg QHS PO Last administered on 02/26/17 21:12; Start 02/26/17 at 21:00; Stop 02/26/17 at 21:01; Status DC Methylprednisolone (Medrol) 4 mg QIDAFTMEAL PO Last administered on 02/27/17 08 :23; Start 02/27/17 at 09:00; Stop 02/27/17 at 21:01 Methylprednisolone (Medrol) 4 mg TID PO ; Start 02/28/17 at 09:00; Stop 02/28/17 at 21:01 Methylprednisolone (Medrol) 4 mg BID PO ; Start 03/01/17 at 09:00; Stop at 21:01 Methylprednisolone (Medrol) 4 mg DAILY PO ; Start 03/02/17 at 09:00; Stop at 09:01 Fentanyl Citrate (Fentanyl 2ml Vial) 50 mcg PRN Q2HR PRN IV PAIN; Start at 13:00 Docusate Sodium (Colace) 100 mg DAILY PO Last administered on 02/27/17 08:24; Start 02/25/17 at 13:30 Polyethylene Glycol (miraLAX PACKET) 17 gm 1X ONCE PO Last administered on 02/25 13:29; Start 02/25/17 at 13:30; Stop 02/25/17 at 13:31; Status DC Polyethylene Glycol (miraLAX PACKET) 17 gm DAILY PO Last administered on 09:06; Start 02/26/17 at 09:00 Magnesium Hydroxide (Milk Of Magnesia) 2,400 mg PRN DAILY PRN PO CONSTIPATION; Start 02/25/17 at 13:00 Active Scripts Active Reported Vitamin D2 (Ergocalciferol (Vitamin D2)) 50,000 Unit Capsule 50,000 Unit PO WEEKLY Fibercon (Calcium Polycarbophil) 625 Mg Tablet 625 Mg PO DAILY Colace (Docusate Sodium) 100 Mg Capsule 100 Mg PO HS Fish Oil (Austell-3 Fatty Acids) 500 Mg Capsule.dr 1,200 Mg PO BID Ketoconazole 120 Ml Shampoo 120 Ml TP 3X/WEEK Ketoconazole 15 Gm Cream..g. 15 Gm TP BID Oxybutynin Chloride 5 Mg Tablet 5 Mg PO HS Hydrocodone-Apap 7.5-325 (Hydrocodone Bit/Acetaminophen) 1 Each Tablet 1 Tab PO PRN Q4-6HRS PRN Premarin (Estrogens, Conjugated) 30 Gm Cream.appl 0.3 Jaleesa VG 3X/WEEK Escitalopram Oxalate 20 Mg Tablet 20 Mg PO HS Baclofen 10 Mg Tablet 10 Mg PO TID Simvastatin 40 Mg Tablet 40 Mg PO HS Metformin Hcl 1,000 Mg Tablet 1,000 Mg PO BIDWMEALS Gabapentin 800 Mg Tablet 1,200 Mg PO BID Benadryl (Diphenhydramine Hcl) 25 Mg Capsule 50 Mg PO HS Aspir 81 (Aspirin) 81 Mg Tablet.dr 81 Mg PO Estarylla (Norgestimate-Ethinyl Estradiol) 1 Each Tablet 1 Each PO Claritin (Loratadine) 10 Mg Capsule 10 Mg PO Vitals/I & O Vital Sign - Last 24 Hours 02/26/17 02/26/17 02/26/17 02/26/17 11:00 15:00 19:54 20:09 Temp 98.5 98.5 98.2 98.5 98.5 98.2 Pulse 80 83 88 Resp 20 20 18 B/P (MAP) 128/76 (93) 138/77 (97) 142/74 (96) Pulse Ox 93 93 95 O2 Delivery Room Air Room Air Room Air Room Air 02/26/17 02/27/17 02/27/17 23:22 03:15 07:00 Temp 98.5 97.8 97.9 98.5 97.8 97.9 Pulse 79 66 69 Resp 18 18 18 B/P (MAP) 113/61 (78) 105/56 (72) 130/94 (106) Pulse Ox 95 96 97 O2 Delivery Room Air Room Air Room Air Intake and Output 02/26/17 02/26/17 02/27/17 15:00 23:00 07:00 Intake Total 300 ml Balance 300 ml SVEN DE LOS SANTOS MD February 27, 2017 09:13
[2017-02-27 09:48] LABS: FOLATE 15.93 ng/ml (3.2-20.0)
[2017-02-27 11:00] VITALS: BP 130/77
[2017-02-27] MEDS ORDERED: CYANOCOBALAMIN (VITAMIN B-12) 1,000 MCG TABLET. PO SCH (12:00)
[2017-02-27] MEDS: ENOXAPARIN 40 MG/0.4 ML SYRINGE. SQ SCH (12:15)
[2017-02-27] MEDS ORDERED: PANT40TA5 PO (14:33)
[2017-02-27] MEDS ORDERED: LIDO700A27 TD (14:33)
[2017-02-27] MEDS ORDERED: OXYC10TA32 PO (14:33)
[2017-02-27] MEDS ORDERED: OXYC5CAP3 PO (14:33)
[2017-02-27] MEDS ORDERED: POLY17PO3 PO (14:33)
[2017-02-27] MEDS ORDERED: METH4TAB PO (14:33)
[2017-02-27] MEDS ORDERED: CYAN10005 PO (14:33)
--- NOTE | 2017-02-27 15:05 | PDOC ---
PROGRESS NOTES Assessment Assessment IMPRESSION: Numbness and weakness in UE and LE. Cervical myelopathy. 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 Degenerative spine disease. DM HLD Obesity RECOMMENDATIONS/PLAN: She has been treated with steroids and responds to treatment. Vit B12 supplement though level WNL, but at low side. Vit B12 1 mg daily. Treat medical diseases. OT/PT Rehab as needed. SUBJECTIVE: Stating her symptoms much better. Past Medical History Cardiovascular: Hyperlipidemia Musculoskeletal: Other (cervical spinal stenosis) Endocrine: Diabetes Dermatology: Other (seborrhea) Past Surgical History Tonsillectomy, Hysterectomy, Other (oral, cervical decompression, fusion C5-6, removal of colonic polyps, laparoscopy for adhesions) Family History Cancer Social History , is with her in the room, no tobacco, rare alcohol ALLERGY: Reviewed. MEDICATIONS: Refer to MAR REVIEW OF SYSTEMS: Constitutional: No malnutrition, weight loss, cachexia. Head: No recent traumatic brain or head injury. Skin: No edema, or rash. Ear: No infection, tinnitus. Eyes: No vision loss, or diplopia. Nose: No bleeding or purulent discharges. Hearing: No hearing decrease. Neck: No injury. Breast: No history of cancer, masses, or discharges. Cardiac: HLD Pulmonary: No pneumonia. GI: No GI Ulcer, GI bleeding Urinary/genital: UTI. Endocrine: Diabetes Mellitus, obesity. Skeletomuscular: No muscular atrophy, deformity. Neurological: see HP. Psychiatric: Denies drug use/abuse. Otherwise, not [id number] review of systems. PHYSICAL EXAMINATION: General appearance in no acute distress. HEENT: Normocephalic and nontraumatic. Eyes, nose, ears, and throat are unremarkable. Neck is supple. No lymphadenopathy. No bruits are heard over the carotid artery. No Crepitus. Cardiovascular: S1, S2, regular rate and rhythm. Pulmonary: Clear to auscultation bilaterally. Abdomen: Bowel sounds are positive. Abdomen is soft, nontender, and nondistended. Extremities: No rash, lesions, or edema. No restriction of range of motion NEUROLOGICAL EXAMINATION: Awake. Oriented to time, place and person. PERRL. EOMI. CN: no focal findings. Muscle tone: within normal. Muscle strength: 5- DTR: 3- UE, 3 at knee Plantar reflex: Flexor response bilaterally Gait: not examined in bed. Sensory exam: no acute abnormal findings. No cerebellar signs elicited. F-T-N test fine. Objective Objective Vital Signs Date Time Temp Pulse Resp B/P (MAP) Pulse Ox O2 Delivery O2 Flow Rate FiO2 02/27/17 11:00 97.8 75 18 130/77 (94) 98 Room Air 97.8 Intake and Output 02/27/17 07:00 Intake Total 300 ml Balance 300 ml Intake Oral 300 ml # Voids 6 Vitals Signs Vitals VS - Last 72 Hours, by Label Date Time Temp Pulse Resp B/P (MAP) Pulse Ox O2 Delivery O2 Flow Rate FiO2 02/27/17 11:00 97.8 75 18 130/77 (94) 98 Room Air 97.8 02/27/17 07:40 Room Air 02/27/17 07:00 97.9 69 18 130/94 (106) 97 Room Air 97.9 02/27/17 03:15 97.8 66 18 105/56 (72) 96 Room Air 97.8 02/26/17 23:22 98.5 79 18 113/61 (78) 95 Room Air 98.5 02/26/17 20:09 Room Air 02/26/17 19:54 98.2 88 18 142/74 (96) 95 Room Air 98.2 02/26/17 15:00 98.5 83 20 138/77 (97) 93 Room Air 98.5 02/26/17 11:00 98.5 80 20 128/76 (93) 93 Room Air 98.5 02/26/17 08:05 Room Air 02/26/17 07:00 98.1 76 20 107/60 (76) 95 Room Air 98.1 Laboratory Laboratory Laboratory Tests Test 02/26/17 16:54 02/27/17 07:40 02/27/17 11:40 Glucose (Fingerstick) 113 mg/dL (70-99) 128 mg/dL (70-99) 117 mg/dL (70-99) Microbiology 02/23/17 Urine Culture - Final, Complete Medication Medications Current Medications Cyanocobalamin (Vitamin B-12) 1,000 mcg DAILY PO Last administered on 02/27/17t 12:13; Start 02/27/17 at 12:00 Methylprednisolone (Medrol) 4 mg BID PO ; Start 03/01/17 at 09:00; Stop at 21:01 Methylprednisolone (Medrol) 4 mg BID PO ; Start 02/28/17 at 09:00; Stop 02/28/17 at 09:00; Status DC Methylprednisolone (Medrol) 4 mg DAILY PO ; Start 03/01/17 at 09:00; Stop at 09:00; Status DC Methylprednisolone (Medrol) 4 mg DAILY PO ; Start 03/02/17 at 09:00; Stop at 09:01 Methylprednisolone (Medrol) 4 mg QIDAFTMEAL PO Last administered on 02/27/17 13 :51; Start 02/27/17 at 09:00; Stop 02/27/17 at 21:01 Methylprednisolone (Medrol) 4 mg TID PO ; Start 02/27/17 at 09:00; Stop 02/27/17 at 09:00; Status DC Methylprednisolone (Medrol) 4 mg TID PO ; Start 02/28/17 at 09:00; Stop 02/28/17 at 21:01 Methylprednisolone (Medrol) 8 mg QHS PO Last administered on 02/26/17 21:12; Start 02/26/17 at 21:00; Stop 02/26/17 at 21:01; Status DC Comment Review of Relevant I have reviewed the following items cailin (where applicable) has been applied. NADINE NAZARIO MD February 27, 2017 15:05
[2017-02-28] MEDS ORDERED: methylPREDNISolone 4 MG TABLET. PO SCH ×2 (09:00)
[2017-03-01] MEDS ORDERED: methylPREDNISolone 4 MG TABLET. PO SCH ×2 (09:00)
[2017-03-02] MEDS ORDERED: methylPREDNISolone 4 MG TABLET. PO SCH (09:00)
--- NOTE | 2017-03-04 02:03 | DS ---
DATE OF DISCHARGE: 02/27/2017 CHIEF COMPLAINT: Numbness and weakness in upper and lower extremities. HOSPITAL COURSE: The patient is a 61-year-old woman with cervical neurological issues since 2002. However, more recently, about a month before presentation, she started feeling numbness as well as some weakness in both hands as well as legs. Her neck pain was worsening. An x-ray was performed by her primary care physician showed "spinal cord compression" and she had been referred to an outpatient MRI, but because symptoms worsened significantly, she presented to the Emergency Room. No further trauma in the recent past was found. She denied any other neurological symptoms. In workup, an MRI of the cervical spine actually found stable findings compared to 2014, no high-grade stenosis. Neurosurgery was consulted as well as Physiatry. She received nerve root injections as well as adjunct treatment with steroids and heat with excellent improvement in her symptoms. She was deemed stable for discharge to home on 02/27/2017. DISCHARGE DIAGNOSES: Cervical neuropathy, status post injection. DISCHARGE DISPOSITION: To home. DISCHARGE CONDITION: Improved. DISCHARGE MEDICATIONS: Please refer to MAR. DISCHARGE INSTRUCTIONS: The patient will follow up with PCP in 1 week. She will see Dr. Chicas as needed. NICKO NIELSON MD DR: UR/nts JOB#: [id number] / [id number] JOSE EDUARDO Ruiz MD MTDD
== END 2017-02-27 15:50 | disposition home or self-care (01) | DRG 552 ==
LOC: ER 15:31 → 4 NORTH 18:59
PROVIDERS: ADMIT Internal Medicine; ATTEND Internal Medicine
PROC: 3E023GC Introduction of Other Therapeutic Substance into Muscle, Percutaneous Approach (ICD-10-PCS; principal; 2017-02-24)
DX: M47.12 Other spondylosis with myelopathy, cervical region (principal); E44.1 Mild protein-calorie malnutrition; M19.90 Unspecified osteoarthritis, unspecified site; G62.9 Polyneuropathy, unspecified; E66.9 Obesity, unspecified; E78.00 Pure hypercholesterolemia, unspecified; E78.5 Hyperlipidemia, unspecified; K59.00 Constipation, unspecified; E11.40 Type 2 diabetes mellitus with diabetic neuropathy, unspecified; G89.29 Other chronic pain; L21.9 Seborrheic dermatitis, unspecified; Z90.721 Acquired absence of ovaries, unilateral; Z68.32 Body mass index [BMI] 32.0-32.9, adult; Z90.710 Acquired absence of both cervix and uterus; Z86.010 Personal history of colon polyps; G31.89 Other specified degenerative diseases of nervous system
CPT/HCPCS: 36415; 70450; 70551; 71010; 72141; 72148; 80048; 80053; 81001; 82607; 82746; 82947; 84443; 84484; 85027; 85610; 85651; 85730; 87086; 93005; 96374; C9113; J1650; J1815; J2270; J3010; J7509; Q0163; 97110; 97116; 97530; 99285-25